=== PATIENT | male | born 1945 | race Hispanic/Latino ===

== ENCOUNTER 2021-03-28 00:53 | Inpatient (IN) | payer OTHER ==
--- OUTSIDE RECORDS SUMMARY | 2021-03-28 00:59 | XMS REPORT | Continuity of Care Document ---
:1945 Author Organization [facility] t Address [address] [place] [address] [address] [place] [address] Care Team Providers Name Role Phone JAYRO Primary Care Physician Unavailable DOV Attending Clinician Unavailable Maggie Attending Clinician Unavailable Jamar TUCKER Attending Clinician JAMAR Attending Clinician Unavailable NICK HORAN Attending Clinician Unavailable Nancy HORN Attending Clinician Unavailable Lynda RUCKER Attending Clinician Nick Horan MD Attending Clinician 2, Lab Attending Clinician Unavailable Luis FOWLER Attending Clinician Unavailable DOV Attending Clinician Unavailable DOV Attending Clinician Unavailable Violet MEI Attending Clinician Unavailable ASHLEY JOVEL Attending Clinician Unavailable DARIUSZ Attending Clinician Unavailable KHALIDA Attending Clinician Unavailable KHALIDA Attending Clinician [phone] Mariah ANNA Attending Clinician Unavailable Mariah ANNA Attending Clinician [phone] JAYRO Attending Clinician Unavailable Maggie Admitting Clinician Unavailable JAYRO Admitting Clinician Unavailable Payers Payer Name Policy Type Policy Number Effective Date Expiration Date S jonah [employer]ETNA MEDICARE PPO [id number] 2016 00:00:00 [employer]ETNA MEDICARE ADV [id number] 2018 00:00:00 [employer] (MEDICARE [id number] 2021 REPLACEMENT PPO) 00:00:00 Problems Condition Condition Condition Status Onset Resolution Last Treating Co mments Source Name Details Category Date Date Treatment Clinician Date History of History of Disease Active 2020-02 U T total hip total hip 2-12 Heal th replacemen replacemen 00:00: t, right t, right 00 Primary Primary Disease Active 2020-02 [facility] localized localized 2-12 Heal th osteoarthr osteoarthr 00:00: itis of itis of 00 right hip right hip Coronary Coronary Disease Active 2019-02 Unive rs artery artery 1-14 ity of disease disease 00:00: [place] involving involving 00 Medi stefany [place] Branch coronary coronary artery of artery of [place] heart heart without without angina angina pectoris pectoris COVID-19 COVID-19 Disease Active 2019-02 Unive rs 1-14 ity of 00:00: [place] 00 Medical Branch Troponin I Troponin I Disease Active 2019-02 U nivers above above 1-14 [place] of [place] range 00 [place] 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-02 Unive 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 00:00: [place] systolic systolic 00 Medica l and and Branch diastolic diastolic congestive congestive heart heart failure failure Essential Essential Disease Active 2019-02 Uni vers hypertensi hypertensi 1-14 it y of on on 00:00: [place] 00 Medical Branch Other Other Disease Active 2019-02 Univers hyperlipid hyperlipid 1-14 it y of emia emia 00:00: [place] 00 Medical Branch Type 2 Type 2 Disease Active 2019-02 Univers diabetes diabetes 1-14 ity of mellitus mellitus 00:00: [place] without without 00 Medical complicati complicati Br anch on, with on, with long-term long-term current current use of use of insulin insulin Hypoxia Hypoxia Disease Active 2019-02 Univers 1-13 ity of 00:00: [place] 00 Medical Branch Lumbar Lumbar Disease Active [facility] stenosis stenosis 806 Health with with 00:00: neurogenic neurogenic 00 claudicati claudicati on on Arthritis Arthritis Disease Active UT of right of right 806 Health hip hip 00:00: 00 History of History of Disease Active U T hip hip 806 Health replacemen replacemen 00:00: t, total, t, total, 00 left left Nondisplac Nondisplac Disease Active U T ed ed 7-05 Health [facility] 00:00: teric teric 00 fracture fracture of left of left femur, femur, initial initial encounter encounter for closed for closed fracture fracture Hemangioma Hemangioma Disease Active U T 5-23 Health 00:00: 00 Right hip Right hip Disease Active 2016-02 UT pain pain 0-24 Health 00:00: 00 Left hip Left hip Disease Active 2017 UT pain pain 9-26 Health 00:00: 00 Trigger Trigger Disease Active 2015-02 UT middle middle 0-12 Health finger of finger of 00:00: left hand left hand 00 History of History of Problem Resolve Univers diabetes diabetes d ity of mellitus mellitus [place] Physici ans History of History of Problem Resolve Univers hypertensi hypertensi d it y of on on [place] [facility] History of History of Problem Resolve Univers renal renal d ity of calculi calculi [place] [facility] Trigger Trigger Problem Active Univers middle middle ity of finger of [place] left hand left hand Phys ici ans Acute hip Acute hip Problem Active Uni vers pain, left pain, left it y of [place] [facility]ici ans Right hip Right hip Problem Active Uni vers pain pain ity of [place] Physici ans Hemangioma Hemangioma Problem Active U nivers ity of [place] Physici ans Closed Closed Problem Active Univers nondisplac nondisplac it y of ed ed [facility] teric teric ans fracture fracture of left of left femur, femur, initial initial encounter encounter Closed Closed Problem Active Univers nondisplac nondisplac it y of ed ed [facility] ysici teric teric ans fracture fracture of left of left femur with femur with routine routine healing, healing, subsequent subsequent encounter encounter History of History of Problem Active U nivers hip hip ity of [place], total t, total Physic i ans Primary Primary Problem Active Univers osteoarthr osteoarthr it y of itis of itis of [place] right hip right hip Phys ici ans Spinal Spinal Problem Active Univers stenosis stenosis ity of of lumbar of [place] Physici with with ans neurogenic neurogenic claudicati claudicati on on Allergies, Adverse Reactions, Alerts Allergy Allergy Status Severity Reaction(s) Onset Inactive Treating Comm ents Source Name Type Date Date Clinician LIRAGLUT DRUG Active High Other-Cmnt Univ ers STERLING INGREDI - ity of 00:00: [place] 00 Medical Branch LIRAGLUT DRUG Active High Other-Cmnt Univ ers STERLING INGREDI 04-20 ity of 00:00: [place] 00 Medical Branch Liraglut Drug Active Other - See Patient Un scooby sterling Allergy comments 04-20 states ity of 00:00: that [place] 00 caused Medical Pancreati Branch tisOther reaction( s): Other (See Comments) Got pacreatit is from victoza, told not to take VICTOZA Allergy Active [place] [facility] e [facility] Family History Family Member Diagnosis Comments Start Date Stop Date Source Sibling Family history of Univers ity of [place] diabetes mellitus Physici ans Sibling Family history of Univers ity of [place] cardiac disorder Physicia ns Mother Family history of Univers ity of [place] diabetes mellitus Physici ans Father Family history of Univers ity of [place] diabetes mellitus Physici ans Father Family history of Univers ity of [place] cardiac disorder Physicia ns Social History Social Habit Start Date Stop Date Quantity Comments Source Health-related 2019-06-05 [facility] Behavior 00:00:00 Exposure to Not sure [place] [facility] SARS-CoV-2 (event) Alcohol intake [facility] Sex Assigned At Male [facility] Tobacco use and 2020-07-30 2020-07-30 Smokeless tobacco [facility] exposure 00:00:00 00:00:00 non-user Smoking Status Start Date Stop Date Source Never Smoker [facility] Unknown if ever smoked [facility] Medications Ordered Filled Start Stop Current Ordering Indication Dosage Frequency Signature Comments Components Source Medication Medication Date Date Medication? Clinician (SIG) Name Name Novolog Novolog 2020-02 No Novolog Rangel garcia Flexpen Flexpen 2-22 Flexpen da U-100 U-100 00:00: U-100 Medical Insulin Insulin 00 Insulin Group aspart 100 aspart 100 aspart 100 unit/mL (3 unit/mL (3 unit/mL (3 mL) mL) mL) subcutaneou subcutaneou subcutaneo s 75-100 3 s 75-100 3 us 75-100 units, units, 3 units, 101-150-5 101-150-5 101-150-5 units , units , units , 151-200 7 151-200 7 151-200 7 units, units, units, 201-250 9 201-250 9 201-250 9 units, units, units, 251-300 11 251-300 11 251-300 11 units , 300 units , 300 units , or more ... or more ... 300 or more ... cholecalcif 2020-02 Yes Take by [place] emma 2-08 mouth. Health (Vitamin 10:57: D3) 200 34 Unit tablet split tablet omega-3 2020-02 Yes Take by [place] (Fish Oil) 2-08 mouth. Health 1000 MG 10:57: capsule 34 alpha 2020-02 Yes Take by UT tocopherol 2-08 mouth. Health (Vitamin E) 10:57: 100 units 34 capsule Zinc 10 MG 2020-02 Yes Take by UT lozenge 2-08 mouth. Health 10:57: 34 meloxicam 2020-02 Yes UT (Mobic) 15 2-08 Health MG tablet 10:57: 34 montelukast 2020-02 Yes 10mg Take 10 mg UT (Singulair) 2-08 by mouth. Constantino lt 10 MG 10:57: tablet 34 FREESTYLE 2020-02 Yes [id number] USE U nivers JENISE 14 0-04 DIRECTED ity of DAY SENSOR 00:00: EVERY 14 [place] 00 [place] Branch cholecalcif Yes Take by UT emma 6 mouth. Health (Vitamin 16:23: D3) 200 14 Unit tablet split tablet omega-3 Yes Take by UT (Fish Oil) 07-30 mouth. Health 1000 MG 16:23: capsule 14 alpha Yes Take by UT tocopherol 07-30 mouth. Health (Vitamin E) 16:23: 100 units 14 capsule Zinc 10 MG Yes Take by UT lozenge 07-30 mouth. Health 16:23: 14 meloxicam Yes UT (Mobic) 15 6 Health MG tablet 16:23: 14 montelukast Yes 10mg Take 10 mg UT (Singulair) 07-30 by mouth. Hea lth 10 MG 16:23: tablet 14 No known No No known UT medications 07-30 medication He alth 11:23: s 14 icosapent Yes [id number] 2g Take 2 Un scooby ethyL 6-03 capsules ity of (VASCEPA) 1 00:00: by mouth 2 [facility] 00 (two) Medical capsule times Branch daily. metFORMIN Yes 850mg Take 1 Unive rs 850 mg - tablet by ity of tablet 00:00: mouth 2 [place] 00 (two) Medical times Branch daily. insulin Yes [id number] 34U inject 34 Univers degludec 5-18 Units ity of (TRESIBA 00:00: under the [facility] s FLEXTOUCH 00 skin every Medi stefany U-100) 100 morning. Branc h unit/mL (3 mL) InPn montelukast Yes 10mg Take 10 mg UT (Singulair) 5-02 by mouth. Hea lth 10 MG 13:58: tablet 20 montelukast Yes 10mg Take 10 mg UT (Singulair) 5-02 by mouth. Hea lth 10 MG 13:58: tablet 20 meloxicam Yes UT (Mobic) 15 5-02 Health MG tablet 13:58: 19 meloxicam 0 Yes UT (Mobic) 15 5-02 Health MG tablet 13:58: 19 omega-3 2021-0 Yes Take by UT (Fish Oil) 5-02 mouth. Health 1000 MG 13:58: capsule 18 alpha 2020-0 Yes Take by UT tocopherol 5-02 mouth. Health (Vitamin E) 13:58: 100 units 18 capsule Zinc 10 MG 2020-0 Yes Take by UT lozenge 5-02 mouth. Health 13:58: 18 omega-3 2020-0 Yes Take by UT (Fish Oil) 5-02 mouth. Health 1000 MG 13:58: capsule 18 alpha 2020-0 Yes Take by UT tocopherol 5-02 mouth. Health (Vitamin E) 13:58: 100 units 18 capsule Zinc 10 MG 2020-0 Yes Take by UT lozenge 5-02 mouth. Health 13:58: 18 cholecalcif 2020-0 Yes Take by UT emma 5-02 mouth. Health (Vitamin 13:58: D3) 200 17 Unit tablet split tablet cholecalcif 0 Yes Take by UT emma 5-02 mouth. Health (Vitamin 13:58: D3) 200 17 Unit tablet split tablet Continuous 2020-0 Yes 1 EACH UT Blood Gluc 3-25 DAILY. Health Bridge Mechanic 00:00: E11.65 (FreeStyle 00 Jenise 14 Day [place]) device Continuous 2020-0 Yes 1 EACH UT Blood Gluc 3-25 DAILY. Health Bridge Mechanic 00:00: E11.65 (FreeStyle 00 Ejnise 14 Day [place]) device Continuous 2020-0 Yes 1 EACH UT Blood Gluc 3-25 DAILY. Health Bridge Mechanic 00:00: E11.65 (FreeStyle 00 Jenise 14 Day [place]) device Continuous 2020-0 Yes 1 EACH UT Blood Gluc 3-25 DAILY. Health Bridge Mechanic 00:00: E11.65 (FreeStyle 00 Jenise 14 Day [place]) device FREESTYLE 2020-0 Yes [id number] 1 EACH U nivers JENISE 14 3-25 DAILY. ity of DAY READER 00:00: E11.65 [place] [address] Medical Branch Continuous 2020-0 Yes 1{kit} 1 kit by U T Blood Gluc 3-19 Other Health Sensor 00:00: route. (FreeStyle 00 Jenise 14 Day Sensor) misc Continuous 2020-0 Yes 1{kit} 1 kit by U T Blood Gluc 3-19 Other Health Sensor 00:00: route. (FreeStyle 00 Jenise 14 Day Sensor) misc Continuous 2021-0 Yes 1{kit} 1 kit by U T Blood Gluc 3-19 Other Health Sensor 00:00: route. (FreeStyle 00 Jenise 14 Day Sensor) [facility] Continuous Yes 1{kit} 1 kit by U T Blood Gluc 3-19 Other Health Sensor 00:00: route. (FreeStyle 00 Jenise 14 Day Sensor) [facility] FREESTYLE 2021- No [id number] 1{kit} 1 Kit Univers JENISE 14 3-19 10-04 every 14 ity of DAY SENSOR 00:00: 00:00 (fourteen) [place] Kit 00 :00 days. Medical E11.65 Branch ZINC Yes Take by Univers ACETATE 3-17 mouth ity of ORAL 14:02: daily. [address] vitamin E Yes Take by Univ ers acetate 3-17 mouth ity of (VITAMIN E 14:02: daily. [address] cholecalcif Yes Take by Un scooby emma, 3-17 mouth ity of vitamin D3, 14:02: daily. [facility] s (VITAMIN D3 50 Medical ORAL) Branch montelukast Yes 10mg Take 10 mg Univers 10 mg 3-17 by mouth. ity of tablet 10:53: [address] Branch atorvastati Yes TAKE 1 Univ ers n 20 mg 1-29 TABLET BY ity of tablet 00:00: MOUTH [place] [address] EVERY DAY Medical IN THE Branch EVENING WITH DINNER Icosapent Yes TAKE 2 UT Ethyl 1-24 CAPSULES Health (Vascepa) 1 00:00: BY MOUTH g capsule 00 TWICE A DAY Icosapent Yes TAKE 2 UT Ethyl 1-24 CAPSULES Health (Vascepa) 1 00:00: BY MOUTH g capsule 00 TWICE A DAY Icosapent Yes TAKE 2 UT Ethyl 1-24 CAPSULES Health (Vascepa) 1 00:00: BY MOUTH g capsule 00 TWICE A DAY Icosapent 0 Yes TAKE 2 UT Ethyl 1-24 CAPSULES Health (Vascepa) 1 00:00: BY MOUTH g capsule 00 TWICE A DAY hydroCHLORO Yes 25mg Take 25 mg Univers thiazide 25 1-12 by mouth ity of mg tablet 00:00: every [place] 00 morning. Medical Branch budesonide- 2019-02 Yes INHALE 1 UT formoterol 1-04 PUFF BY Health (Symbicort) 00:00: MOUTH 160-4.5 00 TWICE A MCG/ACT DAY inhaler budesonide- 2019-02 Yes INHALE 1 UT formoterol 1-04 PUFF BY Health (Symbicort) 00:00: MOUTH 160-4.5 00 TWICE A MCG/ACT DAY inhaler budesonide- 2019-02 Yes INHALE 1 UT formoterol 1-04 PUFF BY Health (Symbicort) 00:00: MOUTH 160-4.5 00 TWICE A MCG/ACT DAY inhaler budesonide- 2019-02 Yes INHALE 1 UT formoterol 1-04 PUFF BY Health (Symbicort) 00:00: MOUTH 160-4.5 00 TWICE A MCG/ACT DAY inhaler SYMBICORT 2019-02 Yes INHALE 1 Univ ers 160-4.5 1-04 PUFF BY ity of mcg/actuati 00:00: MOUTH [place] on inhaler 00 TWICE A Medica l DAY Branch insulin Yes [id number] 5U inject Uni vers aspart 9-16 5-12 Units ity of U-100 00:00: under the [place] (NOVOLOG 00 skin 3 Medical FLEXPEN (three) Branch U-100 times INSULIN) daily 100 unit/mL before (3 mL) meals. injection E11.65 valsartan Yes 320mg Take 320 Uni vers 320 mg 8-21 mg by ity of tablet 00:00: mouth [place] 00 daily. Medical Branch metoprolol Yes Univers succinate 5-02 ity of XL 25 mg 24 00:00: [place] hr tablet 00 Medical Branch metFORMIN Yes TAKE 1 UT (Glucophage 3-19 TABLET BY [facility] ) 850 MG 00:00: MOUTH tablet 00 TWICE A DAY metFORMIN Yes TAKE 1 UT (Glucophage 3-19 TABLET BY [facility] ) 850 MG 00:00: MOUTH tablet 00 TWICE A DAY metFORMIN Yes TAKE 1 UT (Glucophage 3-19 TABLET BY [facility] ) 850 MG 00:00: MOUTH tablet 00 TWICE A DAY metFORMIN Yes TAKE 1 UT (Glucophage 3-19 TABLET BY [facility] ) 850 MG 00:00: MOUTH tablet 00 TWICE A DAY aspirin 81 2018-0 Yes 81mg Take 81 mg U nivers mg EC 3-19 by mouth ity of tablet 00:00: daily. [address] isosorbide 2019-0 Yes 30mg Take 30 mg U T mononitrate 2-14 by mouth. a [facility] ER (Imdur) 00:00: 30 MG 24 hr 00 tablet isosorbide 2019-0 Yes 30mg Take 30 mg U T mononitrate 2-14 by mouth. [facility] ER (Imdur) 00:00: 30 MG 24 hr 00 tablet isosorbide 2019-0 Yes 30mg Take 30 mg U T mononitrate 2-14 by mouth. [facility] ER (Imdur) 00:00: 30 MG 24 hr 00 tablet isosorbide 2019-0 Yes 30mg Take 30 mg U T mononitrate 2-14 by mouth. [facility] ER (Imdur) 00:00: 30 MG 24 hr 00 tablet isosorbide 2019-0 Yes 30mg Take 30 mg U nivers mononitrate 2-14 by mouth ity of 30 mg 24 hr 00:00: [place]. [place] tablet [facility] valsartan valsartan No valsartan [place] 320 mg 320 mg 320 mg da tablet take tablet take tablet Medical one tablet one tablet take one Group a ay a ay tablet a ay Vascepa 1 Vascepa 1 No 2capsul BID Vascepa 1 [place] gram gram e(s) gram da capsule capsule capsule Medica l Take 2 Take 2 Take 2 Group capsules capsules capsules twice a day twice a day twice a by oral by oral day by route for route for oral route 90 days. 90 days. for 90 days. Adult Low Adult Low No Adult Low [place] Dose Dose Dose da Aspirin one Aspirin one Aspirin Medical day day one day Group atorvastati atorvastati No atorvastat [place] n 40 mg n 40 mg in 40 mg da tablet TAKE tablet TAKE tablet Medical 1 TABLET BY 1 TABLET BY TAKE 1 Group MOUTH ONCE MOUTH ONCE TABLET BY DAILY DAILY MOUTH ONCE DAILY clopidogrel clopidogrel No clopidogre [place] 75 mg 75 mg l 75 mg da tablet TAKE tablet TAKE tablet Medical 1 TABLET BY 1 TABLET BY TAKE 1 Group MOUTH ONCE MOUTH ONCE TABLET BY DAILY DAILY MOUTH ONCE DAILY doxycycline doxycycline No 1capsul BID doxycyclin [place] hyclate 100 hyclate 100 e(s) e hyclate da mg capsule mg capsule 100 mg M edical Take 1 Take 1 capsule Group capsule capsule Take 1 twice a day twice a day capsule by oral by oral twice a route for 7 route for 7 day by days. days. oral route for 7 days. FeroSul 325 FeroSul 325 No FeroSul [place] mg (65 mg mg (65 mg 325 mg (65 da iron) iron) mg iron) Medical tablet one tablet one tablet one Group tablet a tablet a tablet a day day day Lisinopril Lisinopril Yes Uni vers TABS TABS ity of [place] Physici ans HumaLOG HumaLOG Yes Univers SOLN SOLN ity of [place] Physici ans Metoprolol Metoprolol Yes Uni vers Tartrate Tartrate ity of TABS TABS [place] Physici ans Singulair Singulair Yes Unive rs TABS TABS ity of [place] Physici ans Aspirin Aspirin Yes Univers TABS TABS ity of [place] Physici ans Mobic TABS Mobic TABS Yes Uni vers ity of [place] Physici ans hydrochloro hydrochloro No hydrochlor [place] thiazide 25 thiazide 25 othiazide da mg tablet mg tablet 25 mg Medi stefany one tablet one tablet tablet one Group a day a day tablet a day isosorbide isosorbide No isosorbide [place] mononitrate mononitrate mononitrat da ER 30 mg ER 30 mg e ER 30 mg M edical tablet,exte tablet,exte tablet,ext Group nded nded ended release 24 release 24 release 24 hr one hr one hr one tablet a tablet a tablet a day day day metformin metformin No metformin [place] 850 mg 850 mg 850 mg da tablet TAKE tablet TAKE tablet Medical 1 TABLET BY 1 TABLET BY TAKE 1 Group MOUTH TWICE MOUTH TWICE TABLET BY DAILY DAILY MOUTH TWICE DAILY metoprolol metoprolol No metoprolol [place] succinate succinate succinate da ER 25 mg ER 25 mg ER 25 mg Med ical tablet,exte tablet,exte tablet,ext Group nded nded ended release 24 release 24 release 24 hr take one hr take one hr take tablet a tablet a one tablet day day a day montelukast montelukast No montelukas [place] 10 mg 10 mg t 10 mg da tablet one tablet one tablet one Medical a day a day a day Group nitroglycer nitroglycer No nitroglyce [place] in 0.4 mg in 0.4 mg rin 0.4 mg da sublingual sublingual sublingual Medical tablet prn tablet prn tablet prn Group ranolazine ranolazine No ranolazine [place] ER 500 mg ER 500 mg ER 500 mg da tablet,exte tablet,exte tablet,ext Medical nded nded ended Group release,12 release,12 release,12 hr take 1 hr take 1 hr take 1 tablet BID tablet BID tablet BID Tresiba Tresiba No Tresiba [place] FlexTouch FlexTouch FlexTouch da U-100 U-100 U-100 Medical insulin 100 insulin 100 insulin Group unit/mL (3 unit/mL (3 100 mL) mL) unit/mL (3 subcutaneou subcutaneou mL) s pen s pen subcutaneo INJECT 40 INJECT 40 us pen UNITS UNITS INJECT 40 SUBCUTANEOU SUBCUTANEOU UNITS SLY ONCE SLY ONCE SUBCUTANEO DAILY DAILY USLY ONCE DAILY Immunizations Ordered Filled Immunization Date Status Comments [facility] e Immunization Name Name influenza, influenza, 2020-11-21 Completed [facility] injectable, injectable, 00:00:00 Group quadrivalent quadrivalent COVID-19, mRNA, COVID-19, mRNA, 2020-04-[address] [facility] LNP-S, PF, 30 LNP-S, PF, 30 00:00:00 Group mcg/0.3 mL dose mcg/0.3 mL dose (Pfizer-BioNTech) ([employer]) SARS-COV-2 COVID-19 2020-04-11 Completed Unive rsity of PFIZER VACCINE 00:00:00 [facility] COVID-19, mRNA, COVID-19, mRNA, 2020-03-17 Completed [facility] Medical LNP-S, PF, 30 LNP-S, PF, 30 00:00:00 Group mcg/0.3 mL dose mcg/0.3 mL dose (Pfizer-BioNTech) ([employer]) SARS-COV-2 COVID-19 2020-03-17 Completed Unive rsity of PFIZER VACCINE 00:00:00 [facility] Influenza High Dose 2019-11-08 Completed Unive rsity of Quad 00:00:00 [facility] Branch Pneumococcal 2013-04-21 Completed University o f Polysaccharide, 00:00:00 [facility] ical PPSV23 (PNEUMOVAX) Branch Influenza High Dose 2013-01-11 Completed Unive rsity of 00:00:00 [facility] Vital Signs Vital Name Observation Time Observation Value Comments Source BP Diastolic 2021-02-24 00:00:00 74 mm[Hg] [facility] Height 2021-02-24 00:00:00 68 [in_i] [facility] BMI (Body Mass 2021-02-24 00:00:00 32.5 kg/m2 [facility] Medical Index) Group BP Systolic 2021-02-24 00:00:00 140 mm[Hg] [facility] Body Weight 2021-02-24 00:00:00 3417 [oz_av] [facility] BP Diastolic 2021-02-11 00:00:00 68 mm[Hg] [facility] Height 2021-02-11 00:00:00 68 [in_i] [facility] BMI (Body Mass 2021-02-11 00:00:00 32.2 kg/m2 [facility] operator Medical Index) Group BP Systolic 2021-02-11 00:00:00 137 mm[Hg] [facility] Body Weight 2021-02-11 00:00:00 3393 [oz_av] [facility] Body height 2021-01-28 16:57:00 [facility] 2021-01-28 16:57:00 [facility]987 [facility] BMI 2021-01-28 16:57:00 31.17 kg[facility]m2 [facility] Procedures Procedure Date / Time Performing Clinician Source Performed [U] XR HIP RIGHT 2 OR 3 2020-04-28 00:00:00 [facility] VIEWS [id number] Physicians Infectious agent detection 2019-05-31 00:00:00 Nancy Yueqing [employer] by nucleic acid Cardiac Catheterization [facility] Cardiopulmonary Bypass [facility] Pac[facility] Total Replacement of [facility] Revision of Hip [facility] Repair of Hip [facility] History of Hip Surgery [facility] Left Physicians Plan of Care Planned Activity Planned Date Details Comments Source Future Scheduled 2021-03-24 BMP, serum or [facility] 00:00:00 plasma [code = Group BMP, serum or plasma] Encounters Start End Encounter Admission Attending Care Care Encounter Source Date/Time Date/Time Type Type Clinicians Facility Department ID 2021-01-28 Outpatient CRUZ-Q [facility] [id number] [place] 11:25:57 [facility] DANIEL 2021-01-26 Outpatient [facility] [id number] [place] 14:53:20 [facility] 2020-12-20 Emergency [facility] [id number] Univers 05:23:42 [facility] 2020-07-28 Outpatient [facility] [id number] [place] 10:49:34 [facility] 2020-07-06 Outpatient CRUZ-Q [facility] [id number] [place] 01:03:22 EDDA [facility] DANIEL 2020-06-30 Outpatient [facility] [id number] [place] 23:19:14 [facility] 2021-03-26 2021-03-26 Outpatient Zuniga_F [facility] [id number] [place] 03:30:00 03:30:00 203 [facility] 2021-03-20 2021-03-20 Outpatient Zuniga_F [facility] [id number] [place] 12:57:00 12:57:00 128 [facility] 2021-03-20 2021-03-20 Outpatient Zuniga_F [facility] [id number] [place] 12:57:00 12:57:00 202 [facility] 2021-02-24 2021-02-24 Outpatient Zuniga_F [facility] [id number] [place] 04:29:00 04:29:00 104 [facility] 2021-02-24 2021-02-24 Magdiel [facility] [place] - [id number] [place] 00:00:00 00:00:00 Ella Gimenez MD: [address] [place] [address] [address], [place] [address] , Ph. 2021-02-11 2021-02-11 Outpatient Zuniga_F [facility] [id number] [place] 03:10:00 03:10:00 [facility] 2021-02-11 2021-02-11 Magdiel [facility] [place] - [id number] [place] 00:00:00 00:00:00 Ella Gimenez MD: 600 [facility] [address], [place] [address] , Ph. 2021-02-06 2021-02-06 Outpatient Zuniga_F [facility] [id number] [place] 02:19:00 02:19:00 217 Medical [facility] 2021-02-06 2021-02-06 Outpatient Zuniga_F [facility] [id number] [place] 02:19:00 02:19:00 221 Medical [facility] 2021-01-28 2021-01-28 Office Cruz-Martha DAILEY [id number] [place] 10:45:00 11:26:06 Visit PHYSICIAN edda [id number] [facility] S [id number] ORTHOPEDI [phone] - NILE 1 2020-11-16 2020-11-16 [facility] 1.2.840.114 [id number] Univers 00:00:00 00:00:00 Cristiano Stallworthton [id number] i ty [facility] [id number] [place] Profess[place] [phone] [place] dical [place]al [address] [place] [address] 2020-11-11 2020-11-11 Outpatient Seda GUY [facility] [id number] Univers 15:00:00 15:00:00 CRISTIANO [id number] [facility] 2020-11-11 2020-11-11 Outpatient Seda GUY [facility] [id number] Univers 15:00:00 15:00:00 CRISTIANO [facility] 2020-11-07 2020-11-07 Outpatient R AUNG [facility] [id number] Univers 10:00:00 10:00:00 SHAHAB [id number] [facility] 2020-11-07 2020-11-07 Outpatient R AUNG [facility] [id number] Univers 10:00:00 10:00:00 SHAHAB [facility] 2020-08-19 2020-08-19 Outpatient R [facility] [id number] Univers 10:45:00 10:45:00 [id number] [facility] 2020-08-19 2020-08-19 Outpatient R KORY [facility] [id number] Univers 10:45:00 10:45:00 ELLISFEROZ [facility] 2020-07-30 2020-07-30 Office ASIM Howell 1.2.840.114 [id number] [place] 10:30:47 11:36:32 Visit Willard PHYSICIAN [id number] Health S [id number] ORTHOPEDI [phone] CS - NILE 1 2020-07-30 2020-07-30 Office ASIM Howell 1.2.840.114 [id number] 10:30:47 11:36:32 Visit Willard PHYSICIAN [id number] S [id number] ORTHOPEDI [id number] CS - NILE 1 2020-07-22 2020-07-22 Parmjit Guy [facility] [id number] 00:00:00 00:00:00 Cristiano Forman [id number] [place] [id number] Professio [phone] nal 220 Building 2020-07-22 2020-07-22 Dionna Horan [facility] 1.2.840.114 [id number] 00:00:00 00:00:00 [facility] [id number] Nick Forman [id number] Professio [phone] nal 044 Office Building One 2020-07-17 2020-07-17 Tactical Debriefer 2, Adc Lab [facility] 1.2.840.114 [id number] 09:10:48 09:25:48 Visit Keno [id number] [place] [id number] Professio [phone] [facility] 353 [facility] 2020-07-17 2020-07-17 Outpatient R [facility] [id number] -[id number] Univers 09:00:00 09:00:00 [id number] [facility] 2020-07-17 2020-07-17 Outpatient R [facility] [id number] Univers 09:00:00 09:00:00 [facility] 2020-07-08 2020-07-08 [facility] 1.2.840.114 [id number] 15:22:46 16:10:06 Visit Cristiano Forman [id number] [place] [id number] Profvalentineio [phone] [facility] 220 [facility] 2020-07-08 2020-07-08 Outpatient R JAMAR [facility] [id number] Univers 15:30:00 15:30:00 CRISTIANO [id number] [facility] 2020-07-08 2020-07-08 [facility] [id number] Univers 15:30:00 15:30:00 CRISTIANO [facility] 2020-07-02 2020-07-02 Office ASIM Howell 1.2.840.114 [id number] [place] 13:39:45 14:58:22 Visit Willard PHYSICIAN [id number] Health S [id number] ORTHOPEDI [id number] CS - NILE 1 2020-07-02 2020-07-02 Office ASIM Howell 1.2.840.114 [id number] 13:39:45 14:58:22 Visit Willard PHYSICIAN [id number] S [id number] ORTHOPEDI [id number] CS - NILE 1 2020-07-02 2020-07-02 Outpatient JANETH [facility] [id number] Univers 10:30:00 10:30:00 LEXA [id number] [facility] 2020-07-02 2020-07-02 Outpatient Seda FOWLER [facility] [id number] Univers 10:30:00 10:30:00 LEXA [facility] 2020-06-05 2020-06-05 Outpatient TYRONE [facility] [id number] Memoria 05:18:00 18:17:00 joshua [facility] 2020-05-19 2020-05-19 Outpatient TYRONE [facility] 111 [id number] MH 08:00:00 18:00:00 UINTPAPI, Ortho pe [facility] 2020-05-19 2020-05-19 EXT MHH OP Tyrone EXT MSRDP 1.2.840.1 [id number] [place] 00:00:00 00:00:00 edda, LOCATION [id number] [facility] [place] [id number] [phone] [id number] 2020-05-07 2020-05-07 Outpatient Seda HORAN [facility] [id number]-20 Univers 10:00:00 10:00:00 SHAHAB [id number] [facility] 2020-05-07 2020-05-07 Outpatient Seda HORAN [facility] [id number] Univers 10:00:00 10:00:00 SHAHAB [facility] 2020-04-30 2020-04-30 Appointmen TYRONE [facility] Orthopedics [id number] Univers 13:00:00 13:00:00 t; EDDA, - [facility] ALLIE SANCHEZ M.D. [facility] i, ans M.D. 2020-04-11 2020-04-11 Outpatient Seda MEI [facility] [id number] Univers 10:30:00 10:30:00 KATINA [id number] [facility] 2020-04-11 2020-04-11 [facility] [id number] Univers 10:30:00 10:30:00 KATINA [facility] 2020-04-08 2020-04-08 Outpatient Seda MEI [facility] [id number] Univers 13:50:00 13:50:00 KATINA [id number] ity [facility] 2020-04-08 2020-04-08 Outpatient R HAMIDA [facility] [id number] Univers 13:50:00 13:50:00 KATINA ity [facility] 2020-03-17 2020-03-17 Outpatient BECKA [facility] [id number] Univers 12:00:00 12:00:00 CHADD [id number] ity [facility] 2020-03-17 2020-03-17 Outpatient R BECKA [facility] [id number] Univers 12:00:00 12:00:00 CHADD [facility] 2020-03-04 2020-03-04 Outpatient R JAMAR [facility] [id number] Univers 10:00:00 10:00:00 [facility]STIANO [id number] [facility] 2020-03-04 2020-03-04 Outpatient R JAMAR [facility] [id number] Univers 10:00:00 10:00:00 CRISTIANO [facility] 2020-02-27 2020-02-27 Outpatient R [facility] [id number] Univers 09:45:00 09:45:00 [id number] [facility] 2020-02-27 2020-02-27 Outpatient R AUNG [facility] [id number] Univers 09:45:00 09:45:00 SHAHAB [facility] 2020-02-06 2020-02-06 Outpatient R JAMAR [facility] [id number] Univers 09:30:00 09:30:00 [facility]RISTIANO [id number] [facility] 2020-02-06 2020-02-06 Outpatient R JAMAR [facility] [id number] Univers 09:30:00 09:30:00 CRISTIANO [facility] 2020-02-05 2020-02-05 Outpatient R AUNG [facility] [id number] Univers 10:00:00 10:00:00 SHAHAB [id number] ity [facility] 2020-02-05 2020-02-05 Outpatient R AUNG [facility] [id number] Univers 10:00:00 10:00:00 SHAHAB ity [facility] 2020-01-23 2020-01-23 Appointmen TYRONE [facility] [id number] Univers 13:30:00 13:30:00 t; cliff DEL CASTILLO M.D. [place], Physic i DAVID, ans M.D. 2020-01-16 2020-01-16 Outpatient R AUNG, [facility] [id number] Univers 09:00:00 09:00:00 SHAHAB [id number] ity [facility] 2020-01-16 2020-01-16 Outpatient R VESKOFFI, [facility] [id number] Univers 09:00:00 09:00:00 SHAHAB ity [facility] 2019-12-28 2019-12-28 Outpatient R [facility] [id number] Univers 17:00:00 17:00:00 ity [facility] 2019-12-28 2019-12-28 Outpatient R [facility] [id number] Univers 17:00:00 17:00:00 ity [facility] 2019-11-07 2019-11-07 Outpatient R GUY, [facility] [id number] Univers 11:00:00 11:00:00 CRISTIANO [id number] ity [facility] 2019-11-07 2019-11-07 Outpatient R GUY, [facility] [id number] Univers 11:00:00 11:00:00 CRISTIANO ity [facility] 2019-09-27 2019-09-27 [id number] Univers 10:00:00 10:00:00 t; KRISTI ARZOLA M.D. [facility] Clementina garcia 2019-07-03 2019-07-03 Outpatient R GUY, [facility] [id number] Univers 11:30:00 11:30:00 CRISTIANO [id number] ity [facility] 2019-07-03 2019-07-03 Outpatient R GUY, [facility] [id number] Univers 11:30:00 11:30:00 CRISTIANO ity [facility] 2019-06-26 2019-06-26 Outpatient R GUY, [facility] [id number] Univers 16:00:00 16:00:00 CRISTIANO [facility] 2019-06-05 2019-06-05 Outpatient KHALIDA, [facility] [id number] Access 11:00:00 11:00:00 [facility] 2019-06-05 2019-06-05 Outpatient KHALIDA, [facility] [id number] Access 11:00:00 11:00:00 [facility] [id number] [facility] [id number] 2019-05-31 2019-05-31 Outpatient WILFRIDO, [facility] [id number] Access 00:00:00 00:00:00 ARMANDO Kimberly 2019-05-31 2019-05-31 Outpatient WILFRIDO, [facility] [id number] Access 00:00:00 00:00:00 ARMANDO [id number] [facility] [id number] on license of [facility] [id number] 2019-04-03 2019-04-03 [facility] Orthopedics [id number] Univers 11:30:00 11:30:00 t; KRISTI ARZOLA M.D. [facility] Clementina Physici ans 2019-03-26 2019-03-26 [facility] [id number] Univers 10:30:00 10:30:00 t; KRISTI ARZOLA M.D. ity [place], [place] Clementina Physici ans 2019-01-09 2019-01-09 [facility] Orthopedics [id number] Univers 11:15:00 11:15:00 t; KRISTI ARZOLA M.D. [facility] Clementina Physici ans 2018-03-30 2018-03-30 [facility] [id number] Univers 10:15:00 10:15:00 t; KRISTI [facility]. [facility] Orthopedics [facility] Clementina Physici ans 2018-01-09 2018-01-09 [facility] [id number] Univers 10:45:00 10:45:00 t; KRISTI ARZOLA M.D. [facility] 2017-12-29 2017-12-29 [facility], [facility] UTP [id number] Univers 11:15:00 11:15:00 t; KRISTI ARZOLA M.D. [facility] 2017-11-16 2017-11-16 [facility], [facility] UTP [id number] Univers 11:00:00 11:00:00 t; KRISTI ARZOLA M.D. [employer] itsascha [facility], Orthopedics [facility] Physici ans 2017-10-12 2017-10-12 [facility], [facility] UTP [id number] Univers 11:00:00 11:00:00 t; KRISTI ARZOLA M.D. ity [facility] Phys[facility] ans 2017-09-14 2017-09-14 [facility], [facility] UTP [id number] Univers 11:00:00 11:00:00 t; KRISTI ARZOLA M.D. ity [facility] Physici ans 2017-08-23 2017-08-23 [facility], [facility] UTP [id number] Univers 09:00:00 09:00:00 t; KRISTI ARZOLA M.D. ity [facility] [place] [facility].[place]uba Physici ans 2017-07-13 2017-07-13 [facility], [facility] UTP [id number] Univers 11:00:00 11:00:00 t; KRISTI ARZOLA M.D. ity [facility] [place] [facility].[place]uba Physici ans 2017-03-30 2017-03-30 Outpatient Vince DIAL, [facility] MED [id number] 18:02:00 18:02:00 [facility] 2017-02-28 2017-02-28 [facility], [facility] UTP [id number] Univers 11:00:00 11:00:00 t; KRISTI ARZOLA M.D. ity [facility] [place] [facility].Luba Physici ans 2017-01-19 2017-01-19 [facility], [facility] UTP [id number] Univers 11:00:00 11:00:00 t; KRISTI ARZOLA M.D. itsascha [facility]. Physici ans 2017-01-06 2017-01-06 [facility] DARIUSZ, [facility] UTP [id number] Univers 10:45:00 10:45:00 t; KRISTI ARZOLA M.D. cliff [facility] Physici ans 2016-12-14 2016-12-14 [facility], [facility] UTP [id number] Univers 10:45:00 10:45:00 t; KRISTI ARZOLA M.D. cliff [facility] Physici ans 2016-11-25 2016-11-25 [facility], [facility] UTP [id number] Univers 11:15:00 11:15:00 t; KRISTI ARZOLA M.D. cliff [facility]. Physici ans 2016-11-16 2016-11-16 [facility], [facility] UTP [id number] Univers 10:45:00 10:45:00 t; KRISTI ARZOLA M.D. lenasashca [facility] Physici ans 2016-05-27 2016-05-27 [facility], [facility] UTP [id number] Univers 10:45:00 10:45:00 t; KRISTI ARZOLA M.D. lenasascha [facility] Physici ans 2015-11-27 2015-11-27 [facility], [facility] UTP [id number] Univers 10:45:00 10:45:00 t; KRISTI ARZOLA M.D. cliff [facility] Physici ans Results Test Description Test Time Test Comments Results Result Sourc e Comments [U] XRAY HIPS 2020-04-30 [facility] BILATERAL MIN 2 13:08:00 acquired, not [place] VWS AND AP PELVIS reported on Physic ians [id number] this accession number. [U] XRAY HIPS 2019-09-27 [facility] BILATERAL MIN 2 09:56:00 acquired, not [place] VWS AND AP PELVIS reported on Physic ians [id number] this accession number. Panel Description: SARS-CoV-2, RICHARD 2019-06-02 09:48:00 Test Item Value Reference Range Interpretation Comme nts SARS-CoV-2, RICHARD (test Not Detected Not Detected Testin g was performed using the code = 64155-1) avril(R) ALFIE S-CoV-2 test.This test was developed a nd its performance characteristics determinedby [employer]. T his test has not been FDA cleared ora pproved. This test has been author ized by FDA under an Emergency UseAu thorization (EUA). This test is on ly authorized for the duration oftime the declaration that circumstances e xist justifying theauthorizatio n of the emergency use of in vitro diagnostic tests fordetection of SARS-CoV-2 virus and/or diagnosi s of COVID-19 infectionunder section 564(b)(1) of the Act, 21 U.S .C. 360bbb-3(b)(1), unlessthe autho rization is terminated or r evoked sooner.

Performed by:
[employer] ([facility])

[facility][U] XRAY SPINE LUMBOSACRAL MIN 4 VWS [id number] 11:15:00Images acquired, not reported on this accession number.[facility] [U] XRAY SACRUM AND COCCYX 2 VWS, MIN. [id number] 11:15:00Images acquired, not reported on this accession number.[facility] Comprehensive Metabolic [id number] 18:51:00 Test Item Value Reference Range Interpretation Comments Sodium (test code = 140 mmol/L 135-145 N NA) Potassium (test 3.8 mmol/L 3.5-5.1 N code = K) Chloride (test code 99 mmol/L 98-105 N = CL) Carbon Dioxide 26 mmol/L 22-29 N (test code = CO2) Glucose (test code 226 mg/dL 70-115 H = GLU) Blood Urea Nitrogen 18 mg/dL 8-23 N (test code = BUN) Creatinine (test 0.9 mg/dL 0.7-1.2 N code = CREAT) Calcium (test code 9.7 mg/dL 8.3-10.5 N = CA) Prot Total (test 7.3 g/dL 6.4-8.3 N code = TP) Albumin (test code 4.2 g/dL 3.5-5.2 N = ALB) A/G Ratio (test 1.4 Ratio code = AGRATIO) Globulin (test code 3.1 2.9-3.1 N = GLOB) Bili Total (test 0.4 mg/dL 0.1-0.9 N code = TBIL) Alk Phos (test code 92 U/L 40-129 N = APHOS) AST (test code = 53 U/L 1-40 H AST) ALT (test code = 57 U/L 1-41 H ALT) BUN/Creatinine 20.0 Ratio (test code = BCRATIO) Anion Gap (test 15 mmol/L 7-16 N code = AGAP) Estimated GFR (test >60 eGFR (es timated code = GFR) mL/min/1.73m2 Glomerular Ryan tration Rate) is an est imated value,calculate d from the patient's s ginny creatinine usin g the MDRD equation.I t is NOT the patient 's actual GFR. The eGFR provides a more clinicallyusefu l measure of kidn ey disease than se rum creatinine alone.This calculation anny es sex and race into account, if the informationis provided. If th e race is not provided , and the patient isAfrican-Ameri can, multiply by 1.2 12. If sex is not prov ided, and thepatient is female, multipl y by 0.742. Results for patients <18 ye ars ofage have not been validated by th e MDRD study and shoul d be interpretedwith caution.eGFR Re sult Interpretation: eGFR > or = 60 is in t he Normal RangeeGF R < 60 may mean kidney diseaseeGFR < 1 5 may mean kidney failureRange s recommended by the National Kidney Foundation,http ://nkd ep.nih.gov Lipid [id number] 18:51:00 Test Item Value Reference Range Interpretation Comments Cholesterol (test 210 mg/dL 0-200 H code = CHOL) Triglycerides (test 185 mg/dL 9-200 N code = TRIG) HDL (test code = 45 mg/dL 40-60 N HDL) Chol/HDL (test code 4.7 Ratio 0.0-5.0 N = CHOLPHDL) LDL, Calculated 128 mg/dL 0-130 N (NOTE)RISK O F HEART (test code = LDLC) DISEASEPu blished by Citizen Of [place] Heart AssociationAnal yte Optim al Boderline Increased RiskC HOL <200 200-239 >240TRI G <150 150-199 >200HDL Male: >60 <40HDL Female: >60 <50 LDL < 100 130-15 9 >160 LDL NEAR OPTIMAL IS 100- 129 VLDL (test code = 37 mg/dL 5-40 N VLDL) LDL/HDL (test code = 3 LDLPHDL) CBC with [id number] 18:23:00 Test Item Value Reference Range Interpretation Comments WBC (test code = WBC) 6.8 K/cumm 4.4-10.5 N RBC (test code = RBC) 5.18 M/cumm 4.10-5.70 N Hemoglobin (test code = HGB) 15.1 gm/dL 13.4-17.4 N Hematocrit (test code = HCT) 46.9 % 38.7-52.0 N MCV (test code = MCV) 90.5 fL 80-100 N MCH (test code = MCH) 29.1 pg 27.0-32.5 N MCHC (test code = MCHC) 32.2 g/dL 32.0-37.5 N RDW (test code = RDW) 13.6 % 11.5-14.5 N Platelet Count (test code = 258 K/cumm 140-440 N PLTCT) MPV (test code = MPV) 8.5 fL Diff Method (test code = DIFFM) Auto Neutrophil (test code = NEUT) 57.7 % 36-70 N Lymphocyte (test code = LYMPH) 29.1 % 12-44 N Monocyte (test code = MONO) 7.9 % 0-11 N Eosinophil (test code = EOS) 4.6 % 0-7 N Basophil (test code = BASO) 0.8 % 0-2 N Neutro Abs (test code = ANEUT) 3.9 K/cumm 1.6-7.4 N Lymph Abs (test code = ALYMPH) 2.0 K/cumm 0.5-4.6 N Calhoun Abs (test code = AMONO) 0.5 K/cumm 0.0-1.2 N Eos Abs (test code = AEOS) 0.31 K/cumm 0.00-0.74 N Korin Abs (test code = ABASO) 0.1 K/cumm 0.00-0.21 N
[2021-03-28] MEDS ORDERED: ONDANSETRON 4 MG/2 ML VIAL ONE (01:27)
[2021-03-28] MEDS ORDERED: FUROSEMIDE 40 MG/4 ML VIAL ONE ×2 (01:27→07:38)
[2021-03-28] MEDS ORDERED: MORPHINE 2 MG/ML SYR ONE (01:27)
[2021-03-28 01:39] LABS: Absolute Lymphocytes (CBC) 1.3 K/uL (0.7-4.9); Hematocrit 39.1 % (39.6-49.0); Lymphocytes % 10.6 % (15.3-44.8); MPV 8.5 fL (7.6-11.3); RBC Red Blood Cell Count 4.49 M/uL (4.33-5.43)
[2021-03-28 01:40] LABS: Protime INR 1.24
[2021-03-28] MEDS ORDERED: NITROGLYCERIN 1 GM PKT TD ONE (01:55)
[2021-03-28 02:02] LABS: Albumin 2.5 g/dL (3.4-5.0); Bilirubin Direct 1.1 mg/dL (0-0.2); Bilirubin Total 1.5 mg/dL (0.2-1.0); Protein, Total 7.6 g/dL (6.4-8.2)
[2021-03-28 02:04] LABS: Troponin High Sensitivity 207.8 pg/mL (<58.9)
[2021-03-28 02:07] LABS: SARS-COV-2 RT PCR NEGATIVE (NEGATIVE)
--- NOTE | 2021-03-28 02:39 | ER ---
Nurse's Notes [facility] Name: Stepan Pringle Age: 75 yrs Sex: Male : 1945 Arrival Date: 03/28/2021 Time: 01:03 Bed 2 Private MD: Diagnosis: Acute on chronic combined systolic (congestive) and diastolic (congestive) heart failure Presentation: 03/28 01:05 Chief complaint: EMS states: called out for SOB. pt had heart cath today and started as6 having chest pain and shortness of breath this evening. Coronavirus screen: At this time, the client does not indicate any symptoms associated with coronavirus-19. Ebola Screen: No symptoms or risks identified at this time. Initial Sepsis Screen: Does the patient meet any 2 criteria? No. Patient's initial sepsis screen is negative. Does the patient have a suspected source of infection? No. Patient's initial sepsis screen is negative. Risk Assessment: Do you want to hurt yourself or someone else? Patient reports no desire to harm self or others. Onset of symptoms was March 27, 2021. Care prior to arrival: Medication(s) given: ASA, 81 mg, x 4. 01:05 Method Of Arrival: EMS: [facility] as6 01:05 Acuity: DODIE 3 as6 Historical: - Allergies: 01:37 Victoza 2-Raffi; as6 - Home Meds: 01:37 aspirin 81 mg Oral tab 81 mg daily [Active]; atorvastatin 40 mg oral tab 1 tab once as6 daily [Active]; clopidogrel 75 mg oral tab 1 tab once daily [Active]; ferrous sulfate 325 mg (65 mg iron) Oral cpER 325 mg daily [Active]; hydrochlorothiazide 25 mg Oral tab 1 tab once daily [Active]; isosorbide dinitrate 30 mg Oral tab 1 tab daily [Active]; metformin 850 mg Oral tab 1 tab 2 times per day [Active]; montelukast 10 mg oral tab 1 tab once daily [Active]; Novolog U-100 Insulin aspart 100 unit/mL Sub-Q soln as needed [Active]; ranolazine 500 mg oral Tb12 1 tab 2 times per day [Active]; tresiba 40 units daily [Active]; vacespa 1 gram bid [Active]; valsartan 320 mg oral tab 1 tab once daily [Active]; - PMHx: 01:37 Diabetes - IDDM; Hypertension; Congestive heart failure; Peripheral vascular disease; as6 Hypercholesterolemia; - PSHx: 01:37 pacemaker; cardiac cath; l and r hip; as6 - Immunization history:: Client reports receiving the 2nd dose of the Covid vaccine, moderna. - Social history:: Smoking status: Patient denies any tobacco usage or history of. Screenin:46 Abuse screen: Denies threats or abuse. Denies injuries from another. Nutritional as6 screening: No deficits noted. Tuberculosis screening: No symptoms or risk factors identified. Fall Risk No fall in past 12 months (0 pts). No secondary diagnosis (0 pts). IV access (20 points). Ambulatory Aid- None/Bed Rest/Nurse Assist (0 pts). Gait- Weak (10 pts.). Mental Status- Oriented to own ability (0 pts). Total Canales Fall Scale indicates Low Risk Score (25-44 pts). Side Rails Up X 2 Frequent Obs/Assesments occuring Family Present and informed to notify staff if they need to leave bedside As available Patient and Family Educated on Fall Prevention Program and strategies. Assessment: 01:05 General: Appears uncomfortable, Behavior is cooperative, anxious. General: Reports as6 fatigue for. Pain: Complains of pain in chest. Neuro: Level of Consciousness is awake, alert, obeys commands, Oriented to person, place, time, situation. Cardiovascular: Reports chest pain, shortness of breath, Heart tones S1 S2 present Rhythm is sinus tachycardia Chest pain is located in left chest wall. Respiratory: Airway is patent Trachea midline Respiratory effort is even, labored, Respiratory pattern is regular, symmetrical, tachypnea Breath sounds are clear bilaterally. GI: Reports constipation. Derm: Skin is diaphoretic. 02:24 General: pt report of improved chest pain and shortness of breath . Respiratory: as6 Respiratory effort is even, unlabored, Respiratory pattern is regular, symmetrical. Derm: Wound noted dorsum of right foot. Derm: Skin is dry. Vital Signs: 01:05 BP 136 / 83; Pulse 120; Resp 24 S; Temp 98.7(O); Pulse Ox 94% on 4 lpm NC; Weight 94.35 as6 kg (R); Height 5 ft. 8 in. (172.72 cm) (R); Pain 5/10; 02:22 BP 126 / 55; Pulse 91; Resp 18 S; Pulse Ox 96% on 2 lpm NC; as6 01:05 Body Mass Index 31.63 (94.35 kg, 172.72 cm) as6 ED Course: 01:03 Patient arrived in ED. as6 01:03 Simone Ashford, RN is Primary Nurse. as6 01:03 Earnest Zacarias MD is Attending Physician. 7 01:18 Inserted saline lock: 22 gauge in left wrist, using aseptic technique. Blood collected. ds4 Missed attempt(s): 22 gauge in left forearm. Bleeding controlled, band aid applied, catheter tip intact. 01:23 COVID-19/FLU A+B/RSV (Document "Date of Onset" if Symptomatic) Sent. as6 01:23 Basic Metabolic Panel Sent. as6 01:23 CBC with Diff Sent. as6 01:23 LFT's Sent. as6 01:23 Magnesium Sent. as6 01:23 NT PRO-BNP Sent. as6 01:23 PT-INR Sent. as6 01:23 Troponin HS Sent. as6 01:29 XRAY Chest (1 view) In Process Unspecified. EDMS 01:37 Triage completed. as6 01:46 Arm band placed on. as6 01:47 Placed in gown. Bed in low position. Call light in reach. Side rails up X2. Adult w/ as6 patient. laboratory monitor on. Pulse ox on. NIBP on. Pillow given. 02:37 Uli Madden MD is Hospitalizing Provider. [facility] 05:19 No provider procedures requiring assistance completed. Patient admitted, IV remains in as6 place. Administered Medications: 01:30 Drug: Lasix (furosemide) 40 mg Route: IVP; Site: left forearm; as6 05:17 Follow up: Response: No adverse reaction as6 01:30 Drug: morphine 2 mg Route: IVP; Site: left forearm; as6 05:17 Follow up: Response: No adverse reaction; RASS: Alert and Calm (0) as6 01:30 Drug: Zofran (Ondansetron) 4 mg Route: IVP; Site: left forearm; as6 05:17 Follow up: Response: No adverse reaction as6 02:01 Drug: Nitro-Bid (nitroglycerin) Ointment 2 % 1 inches Route: Transdermal; Site: as6 anterior chest wall; 05:18 Follow up: Response: No adverse reaction as6 03:23 Drug: vancoMYCIN 1 grams Route: IVPB; Infused Over: 2 hrs; Site: left forearm; as6 05:18 Follow up: Response: No adverse reaction; IV Status: Completed infusion; IV Intake: as6 250ml Intake: 05:18 IV: 250ml; Total: 250ml. as6 Outcome: 02:38 Decision to Hospitalize by Provider. mh7 05:19 Admitted to ER Hold. Please see [facility] for further documentation. as6 05:19 Condition: stable 05:19 Instructed on the need for admit. 21:45 Patient left the ED. as6 Signatures: Dispatcher [employer] EDMS Wil Acuña 4 Earnest Zacarias MD MD mh7 Simone Ashford RN RN as6
--- NOTE | 2021-03-28 02:39 | EDPHYS ---
Physician Documentation [facility] Name: Stepan Pringle Age: 75 yrs Sex: Male : 1945 Arrival Date: 03/28/2021 Time: 01:03 Bed 2 Private MD: ED Physician Earnest Zacarias HPI: 03/28 01:32 This 75 yrs old Male presents to ER via Unassigned with complaints of mh7 Shortness of breath. Chest pain. 01:32 The patient has shortness of breath at rest, with light activity. Onset: The mh7 symptoms/episode began/occurred yesterday. Duration: The symptoms are intermittent, with no pattern. The patient's shortness of breath is aggravated by exertion, light activity, is alleviated by sitting up. Associated signs and symptoms: Pertinent positives: chest pain, non-productive cough, diaphoresis, Pertinent negatives: dizziness, fever, hemoptysis, loss of consciousness, nausea, numbness in extremities, visual changes, vomiting. Severity of symptoms: At their worst the symptoms were moderate today, in the emergency department the symptoms have improved mildly. Historical: - Allergies: 01:37 Victoza 2-Raffi; as6 - Home Meds: 01:37 aspirin 81 mg Oral tab 81 mg daily [Active]; atorvastatin 40 mg oral tab 1 tab once as6 daily [Active]; clopidogrel 75 mg oral tab 1 tab once daily [Active]; ferrous sulfate 325 mg (65 mg iron) Oral cpER 325 mg daily [Active]; hydrochlorothiazide 25 mg Oral tab 1 tab once daily [Active]; isosorbide dinitrate 30 mg Oral tab 1 tab daily [Active]; metformin 850 mg Oral tab 1 tab 2 times per day [Active]; montelukast 10 mg oral tab 1 tab once daily [Active]; Novolog U-100 Insulin aspart 100 unit/mL Sub-Q soln as needed [Active]; ranolazine 500 mg oral Tb12 1 tab 2 times per day [Active]; tresiba 40 units daily [Active]; vacespa 1 gram bid [Active]; valsartan 320 mg oral tab 1 tab once daily [Active]; - PMHx: 01:37 Diabetes - IDDM; Hypertension; Congestive heart failure; Peripheral vascular disease; as6 Hypercholesterolemia; - PSHx: 01:37 pacemaker; cardiac cath; l and r hip; as6 - Immunization history:: Client reports receiving the 2nd dose of the Covid vaccine, moderna. - Social history:: Smoking status: Patient denies any tobacco usage or history of. ROS: 01:32 Constitutional: Negative for fever, chills, and weight loss, Eyes: Negative for injury, mh7 pain, redness, and discharge, ENT: Negative for injury, pain, and discharge, Neck: Negative for injury, pain, and swelling, Abdomen/GI: Negative for abdominal pain, nausea, vomiting, diarrhea, and constipation, Back: Negative for injury and pain, : Negative for injury, bleeding, discharge, and swelling, MS/Extremity: Negative for injury and deformity, Skin: Negative for injury, rash, and discoloration, Neuro: Negative for headache, weakness, numbness, tingling, and seizure, Psych: Negative for depression, anxiety, suicide ideation, homicidal ideation, and hallucinations, Allergy/Immunology: Negative for hives, rash, and allergies, Endocrine: Negative for neck swelling, polydipsia, polyuria, polyphagia, and marked weight changes, Hematologic/Lymphatic: Negative for swollen nodes, abnormal bleeding, and unusual bruising. Exam: 01:32 Head/Face: Normocephalic, atraumatic. Eyes: Pupils equal round and reactive to light, mh7 extra-ocular motions intact. Lids and lashes normal. Conjunctiva and sclera are non-icteric and not injected. Cornea within normal limits. Periorbital areas with no swelling, redness, or edema. Neck: Trachea midline, no thyromegaly or masses palpated, and no cervical lymphadenopathy. Supple, full range of motion without nuchal rigidity, or vertebral point tenderness. No Meningismus. Chest/axilla: Normal chest wall appearance and motion. Nontender with no deformity. No lesions are appreciated. 01:32 Abdomen/GI: Soft, non-tender, with normal bowel sounds. No distension or tympany. No guarding or rebound. No evidence of tenderness throughout. Back: No spinal tenderness. No costovertebral tenderness. Full range of motion. Skin: Warm, dry with normal turgor. Normal color with no rashes, no lesions, and no evidence of cellulitis. MS/ Extremity: Pulses equal, no cyanosis. Neurovascular intact. Full, normal range of motion. Neuro: Awake and alert, GCS 15, oriented to person, place, time, and situation. Cranial nerves II-XII grossly intact. Motor strength 5/5 in all extremities. Sensory grossly intact. Cerebellar exam normal. Normal gait. Psych: Awake, alert, with orientation to person, place and time. Behavior, mood, and affect are within normal limits. 01:32 Constitutional: The patient appears alert, awake, diaphoretic, obviously ill. 01:32 Cardiovascular: Rate: tachycardic, Rhythm: regular, Pulses: no pulse deficits are appreciated, Heart sounds: normal, normal S1and S2, Edema: pedal edema, that is moderate, JVD: is not appreciated. 01:32 Respiratory: mild respiratory distress is noted, Respirations: tachypnea, that is mild, Breath sounds: rales, that are moderate, are scattered, rhonchi, that are mild, are scattered. Vital Signs: 01:05 BP 136 / 83; Pulse 120; Resp 24 S; Temp 98.7(O); Pulse Ox 94% on 4 lpm NC; Weight 94.35 as6 kg (R); Height 5 ft. 8 in. (172.72 cm) (R); Pain 5/10; 02:22 BP 126 / 55; Pulse 91; Resp 18 S; Pulse Ox 96% on 2 lpm NC; as6 01:05 Body Mass Index 31.63 (94.35 kg, 172.72 cm) as6 MDM: 02:36 Differential diagnosis: Anemia Anxiety Reaction asthma, Bronchitis CHF exacerbation, mh7 Chronic Obstructive Pulmonary Disease Myocardial Infarction pneumonia, Pneumothorax Psychogenic pulmonary edema. Data reviewed: vital signs, nurses notes, EMS record, lab test result(s), cardiac enzymes, CBC, electrolytes. Data interpreted: Pulse oximetry: on 2L(s) per nasal canula, is 96 %. Interpretation: acceptable. Counseling: I had a detailed discussion with the patient and/or guardian regarding: the historical points, exam findings, and any diagnostic results supporting the discharge/admit diagnosis, the presence of at least one elevated blood pressure reading (>120/80) during this emergency department visit, lab results, radiology results, the need for further work-up and treatment in the hospital. Response to treatment: the patient's symptoms have markedly improved after treatment. 02:38 Patient medically screened. [facility] 03/28 01:04 Order name: Basic Metabolic Panel; Complete Time: 20:51 7 03/28 01:04 Order name: CBC with Diff; Complete Time: 01:48 7 03/28 01:04 Order name: LFT's; Complete Time: 20:51 7 03/28 01:04 Order name: Magnesium; Complete Time: 20:51 7 03/28 01:04 Order name: NT PRO-BNP; Complete Time: 20:51 7 03/28 01:04 Order name: PT-INR; Complete Time: 01:48 7 03/28 01:04 Order name: Troponin HS; Complete Time: 20:51 7 03/28 01:06 Order name: COVID-19/FLU A+B/RSV (Document "Date of Onset" if Symptomatic); Complete [facility] Time: 02:33 02 06:04 Order name: Troponin High Sensitivity; Complete Time: 20:51 EDMS 03/28 07:18 Order name: Urine Dipstick-Ancillary; Complete Time: 20:51 EDMS 03/28 08:54 Order name: Basic Metabolic Panel; Complete Time: 20:51 EDMS 03/28 09:02 Order name: D-Dimer; Complete Time: 20:51 EDMS 03/28 12:05 Order name: Troponin High Sensitivity; Complete Time: 20:51 EDMS 03/28 20:28 Order name: Glucose, Ancillary Testing; Complete Time: 20:51 EDMS 03/28 01:04 Order name: XRAY Chest (1 view); Complete Time: 20:51 7 03/28 01:04 Order name: EKG; Complete Time: 01:04 7 03/28 01:04 Order name: Cardiac monitoring; Complete Time: 01:18 7 03/28 01:04 Order name: EKG - Nurse/Tech; Complete Time: 01:18 7 03/28 01:04 Order name: IV Saline Lock; Complete Time: 01:18 7 03/28 01:04 Order name: Labs collected and sent; Complete Time: 01:18 7 03/28 03:07 Order name: Foot Right 3 View XRAY la1 03/28 09:47 Order name: US; Complete Time: 20:51 EDMS 03/28 10:14 Order name: RAD; Complete Time: 20:51 EDMS 03/28 11:09 Order name: US; Complete Time: 20:51 EDMS 03/28 13:21 Order name: CT; Complete Time: 20:51 EDMS 03/28 01:04 Order name: O2 Per Protocol; Complete Time: :18 mh7 03/28 01:04 Order name: O2 Sat Monitoring; Complete Time: :18 mh7 Administered Medications: 01:30 Drug: Lasix (furosemide) 40 mg Route: IVP; Site: left forearm; as6 05:17 Follow up: Response: No adverse reaction as6 01:30 Drug: morphine 2 mg Route: IVP; Site: left forearm; as6 05:17 Follow up: Response: No adverse reaction; RASS: Alert and Calm (0) as6 01:30 Drug: Zofran (Ondansetron) 4 mg Route: IVP; Site: left forearm; as6 05:17 Follow up: Response: No adverse reaction as6 02:01 Drug: Nitro-Bid (nitroglycerin) Ointment 2 % 1 inches Route: Transdermal; Site: as6 anterior chest wall; 05:18 Follow up: Response: No adverse reaction as6 03:23 Drug: vancoMYCIN 1 grams Route: IVPB; Infused Over: 2 hrs; Site: left forearm; as6 05:18 Follow up: Response: No adverse reaction; IV Status: Completed infusion; IV Intake: as6 250ml Disposition Summary: 03/28/21 02:38 Hospitalization Ordered Hospitalization Status: Inpatient Admission [facility] Provider: Uli Madden Condition: Stable [facility] Problem: an acute exacerbation [facility] Symptoms: have improved [facility] Bed/Room Type: Standard [facility] Location: Telemetry/MedSurg (Inpatient)(03/28/21 21:09) Room Assignment: [facility](03/28/21 21:09) Diagnosis - Acute on chronic combined systolic (congestive) and diastolic (congestive) heart [facility] failure Forms: - Medication Reconciliation Form [facility] - SBAR form [facility] Signatures: Dispatcher [employer] EDLonny Granados FNP-C TIME STUDY ENGINEER-Cla1 Sarahi Navarro RN RN cg Holmes, Maurice, MD MD 7 Simone Ashford RN RN as6 Corrections: (The following items were deleted from the chart) 03:11 02:38 Telemetry/MedSurg (Inpatient) mh7 cg 03: 02:38 mh7 cg : 03:11 [facility] cg cg 03:11 [facility]- cg
[2021-03-28] MEDS ORDERED: VANCOMYCIN 1 GM/VIAL ONE ×2 (03:15→05:23)
[2021-03-28] MEDS ORDERED: NA CHLORIDE 0.9% 250 ML ONE (03:15)
--- NOTE | 2021-03-28 03:24 | P.HP ---
Certification for Inpatient Patient admitted to: Inpatient With expected LOS: >2 Midnights Patient will require the following post-hospital care: None Practitioner: I am a practitioner with admitting privileges, knowledge of patient current condition, hospital course, and medical plan of care. Services: Services provided to patient in accordance with Admission requirements found in Title 42 Section 412.3 of the Code of Federal Regulations <Lonny Pino - Last Filed: 03/28/21 03:18> Patient History Date of Service: 03/28/21 Reason for admission: CHF exacerbation History of Present Illness: 75-year-old male with history of CHF, diabetes mellitus type 2insulin- dependent, hypertension, hyperlipidemia, PVD presents to the emergency department for shortness of breath. Patient was found to be hypoxic on room air with saturations around 88% showed up tachypnea, dyspneic with crackles. Patient was given Nitropaste, Lasix in the emergency department with improvement in symptoms chest x-ray appears to demonstrate volume overload pattern labs were significant for white blood cell count 12.2 hemoglobin 12.7 hematocrit 39.1 sodium 134 carbon oxide 19 BUN 35 creatinine 1.51 GFR 45 troponin 207.8, BNP 6890 T bili 1.5 bili 1.1 AST 113 ALT 83 alk phos 377. Patient also noted to have diabetic ulceration to the right foot. Patient reports that on Tuesday morning he went to [facility] and had a balloon angioplasty of the arteries of his right lower extremity in order to reestablish blood flow for wound healing purposes. Patient also reports that he had a heart catheterization in October of last year, he did not require any stenting at that time. ED provider wishes to admit for further evaluation and management of CHF exacerbation, diabetic ulceration. - Past Medical/Surgical History Diabetic: Yes -: CHF -: Diabetes type 2insulin-dependent -: Hypertension -: Hyperlipidemia -: PVD -: cabg -: bilateral cataract sx -: left hip sx x3 Psychosocial/ Personal History: Patient lives at home with his . - Family History Family History: Reviewed- Non-Contributory - Social History Smoking Status: Never smoker Alcohol use: No CD- Drugs: No Caffeine use: Yes Place of Residence: Home <Lonny Pino - Last Filed: 03/28/21 03:18> Date of Service: 03/28/21 <Uli Madden - Last Filed: 03/28/21 15:07> Allergies boceprevir [From Victrelis] Allergy (Verified 04/11/16 08:55) Hives/Rash liraglutide [From Victoza] Allergy (Verified 04/11/16 04:16) Itching/Hives/Rash Home Medications: Aspirin [Aspirin EC 81 MG] 81 mg PO DAILY 04/11/16 Atorvastatin Calcium 40 mg PO DAILY 03/28/21 Clopidogrel Bisulfate [Clopidogrel] 75 mg PO DAILY 03/28/21 Ferrous Sulfate 325 mg PO DAILY 03/28/21 Insulin Aspart [Novolog Flexpen] 100 units SQ PRN 03/28/21 Insulin Degludec [Tresiba] 40 units SQ DAILY 03/28/21 Isosorbide Dinitrate 30 mg PO DAILY 03/28/21 Metformin HCl 850 mg PO BID 03/28/21 Montelukast [Singulair*] 10 mg PO DAILY 03/28/21 Ranolazine [Ranolazine ER] 500 mg PO BID 03/28/21 Valsartan 320 mg PO DAILY 03/28/21 hydroCHLOROthiazide [Hydrochlorothiazide] 25 mg PO DAILY 03/28/21 icosapent ethyL [Vascepa 1 gm Cap] 1 gm PO BID 03/28/21 Review of Systems 10-point ROS is otherwise unremarkable Respiratory: Cough, Shortness of Breath, SOB with Excertion, As per HPI Cardiovascular: Orthopnea, Paroxysmal Noc. Dyspnea <Lonny Pino - Last Filed: 03/28/21 03:18> Physical Examination - Physical Exam General: Alert, In no apparent distress, Oriented x3 HEENT: Atraumatic, PERRLA, Mucous membr. moist/pink, EOMI, Sclerae nonicteric Neck: Supple, 2+ carotid pulse no bruit, No LAD, Without JVD or thyroid abnormality Respiratory: Diminished, Crackles/rales Cardiovascular: No edema, Regular rate/rhythm, Normal S1 S2 Capillary refill: <2 Seconds Gastrointestinal: Normal bowel sounds, No tenderness Musculoskeletal: No tenderness Integumentary: No rashes, Diabetic ulcer (Dorsum of right foot) Neurological: Normal speech, Normal strength at 5/5 x4 extr, Normal tone, Normal affect - Studies Laboratory Data (last 24 hrs) 03/28/21 01:14: PT 14.3 H, INR 1.24 03/28/21 01:14: WBC 12.20 H, Hgb 12.7 L, Hct 39.1 L, Plt Count 340 03/28/21 01:14: Sodium 134 L, Potassium 4.0, BUN 35 H, Creatinine 1.51 H, Glucose 174 H, Total Bilirubin 1.5 H, AST 113 H, ALT 83 H, Alkaline Phosphatase 377 H <Lonny Pino - Last Filed: 03/28/21 03:18> - Studies Laboratory Data (last 24 hrs) 03/28/21 01:14: PT 14.3 H, INR 1.24 03/28/21 01:14: WBC 12.20 H, Hgb 12.7 L, Hct 39.1 L, Plt Count 340 03/28/21 01:14: Sodium 134 L, Potassium 4.0, BUN 35 H, Creatinine 1.51 H, Glucose 174 H, Magnesium 2.3, Total Bilirubin 1.5 H, AST 113 H, ALT 83 H, Alkaline Phosphatase 377 H <Uli Madden - Last Filed: 03/28/21 15:07> Assessment and Plan - Plan Assessment: Acute hypoxic respiratory failure secondary to CHF exacerbationunknown EF 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 Lasix 40 g IV twice daily. Cardiology consult in place. Patient reports he had a heart catheterization and October of last year that did not require stents unsure when his last echocardiogram was no echo available for review patient unsure of his EF. Cardiology consulted for additional assistance. Unable to obtain echocardiogram until Tuesday. Diabetic ulceration dorsum of right foot: General surgery, wound healing consulted will continue with vancomycin at this time, x-ray pending to rule out osteomyelitis. Diabetes most type IIinsulin-dependent: Patient takes Tresiba 40 units daily in addition to Novolin sliding scale. Continue long-acting insulin with mildly reduced dose in addition to sliding scale. CAD status post CABG with pacemaker/defibrillator: Stable, monitor on telemetry. Renal insufficiency: Patient reports after battling with Covid his renal function got worse and it has improved some although he is aware that it is "not great". Unsure of patient's current baseline renal function will continue to trend, consult nephrology for any worsening. Hypertension: Home medications continued Hyperlipidemia: Home medications continued PVD status post balloon angioplasty arteries in the right leg: Stable, good skin color and perfusion to the right lower extremity noted. Abnormal LFTs/bili: We will obtain ultrasound liver. No abdominal pain, nausea or vomiting/abdominal tenderness at this time. DVT PPX: Heparin Code status: Full Discharge Plan: Home Plan to discharge in: 48 Hours - Advance Directives Does patient have a Living Will: No Does patient have a Durable POA for Healthcare: No - Code Status/Comfort Care Code Status Assessed: Yes (Full code) Critical Care: No Time Spent Managing Pts Care (In Minutes): 55 <Lonny Pino - Last Filed: 03/28/21 03:18> - Plan Physical exam GEN: Alert, oriented, NAD HEENT: Normal conjunctiva, sclera anicteric CV: Regular rate and rhythm, trace bilateral pedal edema Pulm: Mild labored respirations on 2 L nasal cannula, bilateral crackles at bases, L>R ABD: Soft, nontender, nondistended Integumentary: No rashes Neuro: Normal speech, normal affect Patient also reports chest pain last night during his episode of feeling more short of breath Chest x-ray bilateral opacities, possible CHF versus pneumonia Just underwent angioplasty yesterday of his right lower extremity check D-dimer, bilateral Dopplers Suspect D-dimer will be positive with recent procedure If either are positive , need to obtain CTA chest to rule out PE Ideally would want to minimize any further IV contrast Second troponin elevated, cardiology updated Start therapeutic Lovenox to cover for NSTEMI and possible PE Continue empiric antibiotics for possible pneumonia <Uli Madden - Last Filed: 03/28/21 15:07>
[2021-03-28] MEDS ORDERED: ONDANSETRON 4 MG/2 ML VIAL IV PRN (03:34)
[2021-03-28] MEDS ORDERED: ACETAMINOPHEN 500 MG TAB PO PRN (03:34)
[2021-03-28] MEDS ORDERED: VANCOMYCIN 1 GM in NA CHLORIDE 0.9% 250 ML IVPB SCH (03:34)
[2021-03-28] MEDS ORDERED: VANCOMYCIN 750 MG in NA CHLORIDE 0.9% 150 ML IVPB ONE (04:30)
[2021-03-28 05:03] VITALS: BMI 31.6
[2021-03-28] MEDS ORDERED: NA CHLORIDE 0.9% 100 ML IV ONE ×2 (05:23→15:41)
[2021-03-28] MEDS ORDERED: METOPROLOL XL 50 MG TAB PO ONE ×2 (05:27→08:25)
[2021-03-28] MEDS ORDERED: METOPROLOL XL 25 MG TAB PO SCH (06:00)
[2021-03-28 07:17] LABS: Urine Blood Negative (Negative); Urine Glucose Negative (Negative); Urine Protein Negative (Negative)
[2021-03-28] MEDS: INSULIN -REGULAR HUMAN 50 UNIT/0.5 ML ML SQ SCH ×4 (07:22→21:00)
[2021-03-28] MEDS ORDERED: ASPIRIN EC 81 MG TAB PO ONE (07:38)
[2021-03-28] MEDS ORDERED: HEPARIN 5000 UNIT/ML 1 ML VIAL ONE (07:38)
[2021-03-28] MEDS ORDERED: INSULIN GLARGINE 100 UNIT/ML SQ ONE (07:40)
[2021-03-28] MEDS ORDERED: CLOPIDOGREL 75 MG TABLET ONE (07:41)
[2021-03-28] MEDS: METOPROLOL XL 25 MG TAB PO SCH (08:00)
[2021-03-28] MEDS: ASPIRIN EC 81 MG TAB PO SCH (08:01)
[2021-03-28] MEDS: CLOPIDOGREL 75 MG TABLET PO SCH (08:03)
[2021-03-28] MEDS: INSULIN GLARGINE 100 UNIT/ML SQ SCH (08:03)
[2021-03-28] MEDS ORDERED: ENOXAPARIN 80 MG/0.8 ML SQ ONE (08:27)
[2021-03-28] MEDS ORDERED: ENOXAPARIN 30 MG/0.3 ML SQ ONE (08:49)
[2021-03-28 08:54] LABS: Potassium 4.3 mmol/L (3.5-5.1)
[2021-03-28] MEDS: ENOXAPARIN 100 MG/ML SYR SQ SCH ×2 (08:54→21:00)
[2021-03-28] MEDS: ISOSORBIDE MONO SR 30 MG TAB PO SCH (08:56)
[2021-03-28] MEDS ORDERED: FUROSEMIDE 40 MG/4 ML VIAL IV SCH (09:00)
[2021-03-28] MEDS ORDERED: ISOSORBIDE MONO SR 30 MG TAB PO SCH (09:00)
[2021-03-28] MEDS ORDERED: HEPARIN 5000 UNIT/ML 1 ML VIAL SQ SCH (09:00)
--- NOTE | 2021-03-28 09:43 | RAD REPORT ---
EXAM DESCRIPTION: US - Liver Only - 03/28/2021 4:00 am CLINICAL HISTORY: Elevated liver function test enzymes COMPARISON: None FINDINGS: The liver has a normal echotexture. . Hepatopetal flow. A lesion is not visualized. The spleen measures 9 centimeters. Small echogenic structures within spleen probably granuloma. 1.5 c entimeter echogenic structure within the spleen. IMPRESSION: Unremarkable liver ultrasound Splenic granulomata 1.5 centimeter echogenic structure spleen likely benign. A followup ultrasound in 3 months recommende d
--- NOTE | 2021-03-28 10:11 | RAD REPORT ---
EXAM DESCRIPTION: Naveen Single View03/28/2021 1:29 am CLINICAL HISTORY: Shortness of breath COMPARISON: 2017 FINDINGS: Mild right and moderate left pulmonary opacities Cardiomegaly. Pacemaker leads in place Postsurgical changes involve the chest IMPRESSION: Bilateral pulmonary opacities probably pulmonary edema. Pneumonia can also have this delon earance
--- NOTE | 2021-03-28 10:13 | RAD REPORT ---
EXAM DESCRIPTION: RAD - Foot Right 3 View - 03/28/2021 3:31 am CLINICAL HISTORY: Right foot pain FINDINGS: No fracture or dislocation is seen Vascular calcifications. Large calcaneal spurs. No bony destructive lesion visualized
--- NOTE | 2021-03-28 11:09 | RAD REPORT ---
EXAM DESCRIPTION: USExtrem Venous W Compress Bil03/28/2021 10:28 am CLINICAL HISTORY: Leg pain COMPARISON: none FINDINGS: The common femoral, superficial femoral, popliteal and posterior tibial veins bilaterally are compressible and demonstrate augmentation. Doppler demonstrates good flow. Grayscale, color and spectral analysis performed on all vessels IMPRESSION: No evidence of deep venous thrombosis involving either lower extremity.
--- NOTE | 2021-03-28 12:10 | CON ---
Date of Consultation: 03/28/2021 Reason For Consultation: Right foot wound. History Of Present Illness: Patient is a 75-year-old gentleman with multiple medical problems, prese nted to the emergency room with difficulty breathing and chest pain with exacerbation of the CHF and on evaluation, was found to have a wound on his right anterior foot and he yesterday had angioplasty done on his right leg for peripheral vascular disease in [place]. He was treated appropriately in [facility] emergency room and he is feeling better. I was asked to evaluate the wound, there is no purulent discharge. No erythema, no pain, no warmth. Review of Systems: Otherwise, unremarkable. Medical History: Significant for CHF, type 2 diabetes, hypertension, hyperlipidemia, peripheral vasc ular disease. Past Surgical History: CABG, cataract surgery, left hip surgery. Allergies: INCLUDE BOCEPREVIR AND LIRAGLUTIDE. Social History: The patient does not smoke or drink alcohol. Family History: Noncontributory. Physical Examination: Vital Signs: Stable. He is afebrile. General: He is awake, alert, and oriented x3. Head And Neck: Cranial 2-12 grossly within normal limits. Neck: No neck masses. No JVD. Throat clear. Neck supple. Chest: Clear. Heart: S1, S2. Abdomen: Soft. Extremities: Diminished dorsalis pedis and posterior tibial pulses. There is approximately 2.5 cm es garcia present in between the first and second toe of the right foot. There is erythema, however, ther e is no warmth associated with it. Erythema may be because the circulation has improved but there is no evidence of any infection. There is no evidence of any purulence as well. Laboratory Data: His white count is 12.2. slight left shift. His INR is 1.24. His chemistry review ed, troponin is elevated, getting a series of troponin level. He had a foot x-ray done, shows no ignacio dence of osteo or infection. Assessment: A 75-year-old gentleman with multiple medical problems, right foot wound. Recommendations: At this point, the patient would benefit from collagenase dressing and no need for any surgical intervention. He will follow up with his wound care doctor in [place] upon discharge, however, since he recently had a vascular procedure, I will await at least 2 weeks prior to consideri ng debridement of the eschar that is present there. Plan of care discussed with Dr. Madden. KEMAL/BARBARA Voice ID: [id number] Report ID: [id number]
--- NOTE | 2021-03-28 13:20 | RAD REPORT ---
EXAM DESCRIPTION: CT - Chest For Pe Angio - 03/28/2021 12:46 pm CLINICAL HISTORY: Chest pain TECHNIQUE: Dynamically enhanced axial 3 mm thick images of the chest were obtained during administra tion of <100> mL Isovue 370 IV contrast. Coronal and oblique reconstruction images were generated and reviewed. Exam utilizes a protocol for optimal evaluation of pulmonary arterial tree. Maximum intensity projections 3D imaging was utilized All CT scans are performed using dose optimization technique as appropriate and may include automated exposure control or mA/KV adjustment according to patient size. FINDINGS: A pulmonary embolus is not seen. A thoracic aortic aneurysm is not noted. A pleural effusion is not seen. A pericardial effusion is not seen. Left lower lobe consolidation IMPRESSION: Negative for a pulmonary embolism. Left lower lobe consolidation probably pneumonia. This should be followed until it is clear to help e xclude a post obstructive process/underlying mass
[2021-03-28 14:14] LABS: Magnesium 2.3
[2021-03-28] MEDS ORDERED: PNEUMOCOCCAL VACCINE 0.5 ML IMVAC ONE ×2 (15:00→15:12)
[2021-03-28] MEDS ORDERED: CEFEPIME 1 GM/VIAL ONE (15:40)
[2021-03-28] MEDS: CEFEPIME 1 GM in NA CHLORIDE 0.9% 100 ML IV SCH (15:49)
[2021-03-28] MEDS ORDERED: INSULIN -REGULAR HUMAN 50 UNIT/0.5 ML ML ONE ×2 (17:17→21:27)
--- NOTE | 2021-03-28 20:55 | CON ---
Date of Consultation: 03/28/2021 Reason For Consultation: Chest pain. History Of Present Illness: Mr. Pringle is a 75-year-old male. He is a patient of Dr. Sanchez. He ju st had an angioplasty of his right leg at [facility] yesterday. He had a catheterization about a y ear ago and apparently had a small vessel disease, patent grafts, medical therapy. This was done by Dr. Sanchez. He has a history of congestive heart failure, pacemaker, diabetes with foot ulcer. He ca me in with atypical chest pain and congestive heart failure. Troponin was 5056. BNP was 6890. Ches t x-ray showed edema, possible pneumonia. Past Medical History: As stated above. Allergies: HE IS ALLERGIC TO MEDICATIONS; LIRAGLUTIDE, BOCEPREVIR. Review of Systems: Negative. Social History: Negative. Family History: Negative. Medications: At home include Imdur, aspirin, Lipitor, metformin, Ranexa, Plavix, insulin, Singulair, valsartan, hydrochlorothiazide. Physical Examination: General: He is completely asymptomatic when I saw him. Vital Signs: Stable. Afebrile. Sinus rhythm. HEENT: Negative. Neck: Supple. No bruit. Chest: Clear to auscultation and percussion. Cardiac: Revealed regular rhythm and rate with an S4 gallop. No murmurs or rubs. Abdomen: Benign. Extremities: Revealed no clubbing, cyanosis, or edema. Diagnostic Data: As stated earlier. Impression And Plan: Non-ST elevation myocardial infarction, probably secondary to congestive heart failure and chronic coronary artery disease and renal insufficiency. There is an echocardiogram pend ing for Tuesday if he stays. I think another catheterization is unlikely considering he just had one recently. I will call Dr. Sanchez and see what he found on home and have him follow up with Dr. Sanchez when he goes home. I would increase his Imdur and increase his beta-corey meanwhile. Continue, ot herwise, his other regimen. He has a pacemaker that is functioning appropriately. He had CABG and h ad recent angioplasty of his leg yesterday. Has diabetic foot ulcer that needs to be addressed. All his other problems seem to be stable at this point. NB/MODL Voice ID: [id number] Report ID: [id number]
[2021-03-28] MEDS: ATORVASTATIN 40 MG TAB PO SCH (21:00)
[2021-03-28] MEDS ORDERED: ENOXAPARIN 100 MG/ML SYR SQ ONE (21:29)
[2021-03-29] MEDS: CEFEPIME 1 GM in NA CHLORIDE 0.9% 100 ML IV SCH ×2 (03:47→16:12)
[2021-03-29] MEDS ORDERED: VANCOMYCIN 1.75 GM in NA CHLORIDE 0.9% 500 ML IVPB SCH ×2 (04:00→05:30)
[2021-03-29 04:23] LABS: Hematocrit 36.4 % (39.6-49.0); Lymphocytes % 8.1 % (15.3-44.8); MPV 8.1 fL (7.6-11.3); RBC Red Blood Cell Count 4.21 M/uL (4.33-5.43)
[2021-03-29 05:18] LABS: Albumin 2.2 g/dL (3.4-5.0); Bilirubin Total 1.3 mg/dL (0.2-1.0); Protein, Total 7.1 g/dL (6.4-8.2); Thyroid Stimulating Hormone 0.276 uIU/mL (0.360-3.740)
[2021-03-29 05:19] LABS: Troponin High Sensitivity 12226.1 pg/mL (<58.9)
[2021-03-29] MEDS: METOPROLOL XL 25 MG TAB PO SCH (05:21)
--- NOTE | 2021-03-29 06:26 | P.PN ---
Date of Service: 03/29/21 Subjective: Breathing slightly improved Hypotensive this morning No new complaints Chest discomfort with deep inspiration ROS: 10 point ROS as noted above, otherwise negative Physical exam GEN: Alert, oriented, NAD HEENT: Normal conjunctiva, sclera anicteric CV: Regular rate and rhythm, trace bilateral pedal edema Pulm: non labored respirations on 2 L nasal cannula, bilateral crackles at bases, L>R ABD: Soft, nontender, nondistended Integumentary: R foot: dorsal ulceration over 1st-2nd digit, surrounding erythema, no abscess palpated Neuro: Normal speech, normal affect Problem List NSTEMI Acute hypoxic respiratory failure secondary to pneumonia and mild CHF exacerbationunknown EF ulceration dorsum of right foot, suspect arterial etiology Diabetes most type IIinsulin-dependent CAD status post CABG with pacemaker/defibrillator Renal insufficiency Hypertension Hyperlipidemia PVD status post balloon angioplasty arteries in the right leg Abnormal LFTs/bili NSTEMI CAD status post CABG with pacemaker/defibrillator Acute hypoxic respiratory failure secondary to pneumonia and mild CHF exacerbationunknown EF NSTEMI possibly demand ischemia/acute renal insufficiency Cardiology consulted, placed on therapeutic Lovenox on 03/28 to cover for possible PE and NSTEMI. Cardiology recommended continuing aspirin and Plavix as well No current plans for cardiac catheterization, no PE on CT, de-escalate Lovenox dosed VTE prophylaxis, continue aspirin and Plavix 1500 cc/day fluid restriction, daily weights. Lasix changed to once daily on 03/28, diuresing well borderline low blood pressure Echocardiogram ordered for Tuesday per cardiology Pulmonology consulted Ulceration of dorsum of right foot suspect arterial etiology With surrounding erythema, no appreciable abscess General surgery consulted, no surgical intervention needed at this time Agree with continued antibiotics, currently on IV, cultures pending. Can likely transition to p.o. tomorrow/discharge Diabetes most type IIinsulin-dependent: Patient takes Tresiba 40 units daily in addition to Novolin sliding scale. Continue long-acting insulin with mildly reduced dose in addition to sliding scale. Renal insufficiency: Patient reports after battling with Covid his renal function got worse and it has improved some although he is aware that it is "not great". Unsure of patient's current baseline renal function will continue to trend, consult nephrology for any worsening. improved s/p 2 angiograms (~8days and 1 day prior to admission), now CTA done on 03/28 HTN HLD PVD s/p balloon angioplasty of the right leg Confirm home medications, continue as appropriate Time Spent Managing Pts Care (In Minutes): 35
[2021-03-29] MEDS: INSULIN -REGULAR HUMAN 50 UNIT/0.5 ML ML SQ SCH ×4 (07:30→21:33)
[2021-03-29] MEDS: COLLAGENASE 30 GM OINTMENT TOP SCH (09:19)
[2021-03-29] MEDS: ENOXAPARIN 100 MG/ML SYR SQ SCH (09:19)
[2021-03-29] MEDS: ASPIRIN EC 81 MG TAB PO SCH (09:19)
[2021-03-29] MEDS: CLOPIDOGREL 75 MG TABLET PO SCH (09:19)
[2021-03-29] MEDS: ISOSORBIDE MONO SR 30 MG TAB PO SCH (09:20)
[2021-03-29] MEDS: INSULIN GLARGINE 100 UNIT/ML SQ SCH (09:20)
--- NOTE | 2021-03-29 11:01 | PN ---
Date of Progress Note: 03/29/2021 Subjective: The patient is awake, alert. No complaints. Objective: Vitals stable, afebrile. Laboratory Data: Reviewed. His white count is 12.8. Assessment And Plan: The right foot has had necrotic eschar, which appears to be connor a littl e bit and there is redness in the forefoot in the medial foot proximal to the ulcer, obvious concerni ng cellulitis versus reperfusion. As the white count is elevated, I think the patient should be yumiko amee with antibiotics and the patient at some point needs debridement of that area, but I will await u ntil this wound demarcates itself, little bit better and plus he is on Lovenox and Plavix. At this t lucy, it is not the optimal time for debridement. Perhaps when he is more medically stabilized, it ca n be as an outpatient. KEMAL/BARBARA Voice ID: [id number] Report ID: [id number]
--- NOTE | 2021-03-29 14:45 | EKG ---
Test Date: 2021-03-28 Test Time: 01:18:44 Behavioral Interventionist: MEASUREMENT RESULTS: Intervals: Rate: 105 SD: 190 QRSD: 134 QT: 378 QTc: 499 [place]: P: 57 SD: 190 QRS: -23 T: 143 INTERPRETIVE STATEMENTS: Sinus tachycardia Left ventricular hypertrophy with QRS widening and repolarization abnormality Abnormal ECG Compared to ECG 04/12/2016 06:23:41 Left ventricular hypertrophy now present Early repolarization now present Sinus rhythm no longer present Left-axis deviation no longer present Myocardial infarct finding no longer present Electronically Signed On 03-29-21 14:43:49 SURVEY RESEARCH ASSOCIATE by Triston Crodova
[2021-03-29 16:21] LABS: Magnesium 2.2
--- NOTE | 2021-03-29 17:00 | PN ---
Date of Progress Note: 03/29/2021 Subjective: Mr. Pringle was admitted to the hospital because of a diabetic foot ulcer. Dr. Tonya fink seen him for possible debridement in the future. His troponins were elevated and they are trending down. He is not having any further chest pain, but still has hypoxia secondary to pneumonia and CHF . He is on Lovenox for DVT prophylaxis. He is continuing to get appropriate medications include asp irin, Plavix, metoprolol, and Lasix. He is on antibiotics. We will continue to follow him. An echo cardiogram is pending for tomorrow. LASHON/BARBARA Voice ID: [id number] Report ID: [id number]
[2021-03-29] MEDS: ATORVASTATIN 40 MG TAB PO SCH (20:11)
[2021-03-29] MEDS: MORPHINE 2 MG/ML SYR IV PRN (21:34)
[2021-03-30] MEDS: CEFEPIME 1 GM in NA CHLORIDE 0.9% 100 ML IV SCH (03:11)
[2021-03-30 03:56] LABS: Absolute Lymphocytes (CBC) 1.4 K/uL (0.7-4.9); Hematocrit 33.7 % (39.6-49.0); Lymphocytes % 12.5 % (15.3-44.8); MPV 8.3 fL (7.6-11.3); RBC Red Blood Cell Count 3.89 M/uL (4.33-5.43)
[2021-03-30] MEDS: VANCOMYCIN 1.75 GM in NA CHLORIDE 0.9% 500 ML IVPB SCH (04:00)
[2021-03-30 04:34] LABS: Bilirubin Total 1.6 mg/dL (0.2-1.0); Potassium 3.9 mmol/L (3.5-5.1); Protein, Total 6.8 g/dL (6.4-8.2)
--- NOTE | 2021-03-30 06:22 | P.PN ---
Date of Service: 03/30/21 Subjective: States he feels about the same, maybe slightly better breathing Still requiring oxygen supplementation No nausea/vomiting, no diarrhea, no dysuria Had episode of chest pain and shortness of breath yesterday afternoon. Troponin downtrending, EKG without ST elevation ROS: 10 point ROS as noted above, otherwise negative Physical exam GEN: Alert, oriented, NAD HEENT: Normal conjunctiva, sclera anicteric CV: Regular rate and rhythm, trace bilateral pedal edema Pulm: non labored respirations on 2 L nasal cannula, bilateral crackles at bases, L>R ABD: Soft, nontender, nondistended Integumentary: R foot: dorsal ulceration over 1st-2nd digit, surrounding erythema, no abscess palpated Neuro: Normal speech, normal affect Problem List NSTEMI Acute hypoxic respiratory failure secondary to pneumonia and mild CHF exacerbationunknown EF ulceration dorsum of right foot, suspect arterial etiology with cellulitis Diabetes most type IIinsulin-dependent CAD status post CABG with pacemaker/defibrillator Renal insufficiency Hypertension Hyperlipidemia PVD status post balloon angioplasty arteries in the right leg Abnormal LFTs/bili NSTEMI CAD status post CABG with pacemaker/defibrillator Acute hypoxic respiratory failure secondary to pneumonia and mild CHF exacerbationunknown EF NSTEMI possibly demand ischemia/acute renal insufficiency Cardiology consulted, placed on therapeutic Lovenox on 03/28 to cover for possible PE and NSTEMI. Cardiology recommended continuing aspirin and Plavix as well No current plans for cardiac catheterization, no PE on CT, de-escalate Lovenox dosed VTE prophylaxis, continue aspirin and Plavix 1500 cc/day fluid restriction, daily weights. Lasix changed to once daily on 03/28, diuresing well borderline low blood pressure Echocardiogram today Cardiology recommends starting Ranexa 500 twice daily Pulmonology consulted Ulceration of dorsum of right foot with cellulitis suspect arterial etiology With surrounding erythema, no appreciable abscess General surgery consulted, no surgical intervention needed at this time. Recommends ruling out osteomyelitis Continue antibiotics, currently on IV. Diabetes most type IIinsulin-dependent: Patient takes Tresiba 40 units daily in addition to Novolin sliding scale. Continue long-acting insulin with mildly reduced dose in addition to sliding scale. Renal insufficiency: Patient reports after battling with Covid his renal function got worse and it has improved some although he is aware that it is "not great". Unsure of patient's current baseline renal function will continue to trend, consult nephrology for any worsening. s/p 2 angiograms (~8days and 1 day prior to admission), now CTA done on 03/28 Improving HTN HLD PVD s/p balloon angioplasty of the right leg Confirm home medications, continue as appropriate Code: Full Dispo: Anticipate DC home in 1-2 days, wean oxygen supplementation Time Spent Managing Pts Care (In Minutes): 35
[2021-03-30] MEDS: METOPROLOL XL 25 MG TAB PO SCH (06:32)
[2021-03-30] MEDS: MORPHINE 2 MG/ML SYR IV PRN ×3 (06:55→20:55)
[2021-03-30] MEDS: INSULIN -REGULAR HUMAN 50 UNIT/0.5 ML ML SQ SCH ×5 (07:30→20:56)
[2021-03-30] MEDS: INSULIN GLARGINE 100 UNIT/ML SQ SCH (09:17)
[2021-03-30] MEDS: CLOPIDOGREL 75 MG TABLET PO SCH (09:17)
[2021-03-30] MEDS: ASPIRIN EC 81 MG TAB PO SCH (09:17)
[2021-03-30] MEDS: COLLAGENASE 30 GM OINTMENT TOP SCH (09:17)
[2021-03-30] MEDS: ISOSORBIDE MONO SR 30 MG TAB PO SCH (09:17)
[2021-03-30] MEDS: ENOXAPARIN 40 MG/0.4 ML SQ SCH (09:17)
--- NOTE | 2021-03-30 09:24 | RAD REPORT ---
EXAM DESCRIPTION: RAD - Chest Single View - 03/30/2021 7:10 am CLINICAL HISTORY: hypoxia, f/u pneumonia / pulm edema Chest pain. COMPARISON: Chest Single View dated 03/28/2021; Chest Pa And Lat (2 Views) dated 04/10/2016 FINDINGS: Portable technique limits examination quality. Underinflated lungs are seen with no real change in mild bilateral pulmonary opacities. The heart is mildly prominent in size. Sternotomy wires are present.Multi lead pacer/defibrillator device is prese nt. IMPRESSION: When accounting for underinflated lungs, no real change is seen since prior study.
--- NOTE | 2021-03-30 11:31 | PN ---
Date of Progress Note: 03/30/2021 Subjective: The patient is awake alert. No complaint. Vitals stable, afebrile. Objective: No significant changes. Assessment: Cellulitis of right foot with necrotic wound and peripheral vascular disease. Recommendations: The patient cannot have an MRI to rule out osteo because of his pacemaker, therefor e we will order a bone scan and then determine whether the patient needs long-term IV antibiotics or not and wound care as ordered. /MODL Voice ID: [id number] Report ID: [id number]
--- NOTE | 2021-03-30 11:32 | EKG ---
Test Date: 2021-03-29 Test Time: 16:19:17 Manager Social Services: CARMEN Clarke MEASUREMENT RESULTS: Intervals: Rate: 104 NE: 198 QRSD: 128 QT: 366 QTc: 481 [place]: P: 62 NE: 198 QRS: -25 T: 140 INTERPRETIVE STATEMENTS: Sinus tachycardia Left bundle branch block Abnormal ECG Compared to ECG 03/28/2021 01:18:44 Left bundle-branch block now present Left ventricular hypertrophy no longer present Early repolarization no longer present Electronically Signed On 03-30-21 11:30:27 JOURNEYMAN MECHANIC by Triston Cordova
--- NOTE | 2021-03-30 11:52 | P.CNS ---
Date of Consult: 03/30/21 Reason for Consult: Abnormal chest x-ray Chief Complaint: CHF exacerbation History of Present Illness: Patient is 75 years of age metabolic syndrome multiple medical problems including peripheral vascular disease presented to the emergency room with some chest pain he was found to be hypoxic troponin was also elevated patient had a balloon angioplasty in his right leg still complains of some shortness of breath Allergies boceprevir [From Victrelis] Allergy (Verified 04/11/16 08:55) Hives/Rash liraglutide [From Victoza] Allergy (Verified 04/11/16 04:16) Itching/Hives/Rash Home Medications: Aspirin [Aspirin EC 81 MG] 81 mg PO DAILY 04/11/16 Atorvastatin Calcium 40 mg PO DAILY 03/28/21 Clopidogrel Bisulfate [Clopidogrel] 75 mg PO DAILY 03/28/21 Ferrous Sulfate 325 mg PO DAILY 03/28/21 Insulin Aspart [Novolog Flexpen] 100 units SQ PRN 03/28/21 Insulin Degludec [Tresiba] 40 units SQ DAILY 03/28/21 Isosorbide Dinitrate 30 mg PO DAILY 03/28/21 Metformin HCl 850 mg PO BID 03/28/21 Montelukast [Singulair*] 10 mg PO DAILY 03/28/21 Ranolazine [Ranolazine ER] 500 mg PO BID 03/28/21 Valsartan 320 mg PO DAILY 03/28/21 hydroCHLOROthiazide [Hydrochlorothiazide] 25 mg PO DAILY 03/28/21 icosapent ethyL [Vascepa 1 gm Cap] 1 gm PO BID 03/28/21 - Past Medical/Surgical History Diabetic: Yes -: CHF -: Diabetes type 2insulin-dependent -: Hypertension -: Hyperlipidemia -: PVD -: cabg -: bilateral cataract sx -: left hip sx x3 Psychosocial/ Personal History: Patient lives at home with his . - Family History Father Medical History: Heart disease, Diabetes Mother Medical History: Heart disease, Diabetes - Social History Smoking Status: Never smoker Alcohol use: Yes CD- Drugs: No Caffeine use: No Place of Residence: Home Review of Systems General: Weakness Respiratory: Shortness of Breath Cardiovascular: Chest Pain Physical Examination Temp Pulse Resp BP Pulse Ox 98.4 F 97 H 18 142/64 H 93 03/30/21 08:00 03/30/21 08:00 03/30/21 08:00 03/30/21 08:00 03/30/21 08:00 General: Alert, In no apparent distress, Mild distress Respiratory: Crackles/rales (Crackles at the right base) Cardiovascular: No edema, Regular rate/rhythm, Normal S1 S2 Gastrointestinal: Normal bowel sounds, Soft and benign - Problems (1) Shortness of breath Current Visit: Yes Status: Acute Plan: Patient is 75 years of age admitted with shortness of breath he has left lower lobe atelectasis/consolidation white count is mildly elevated patient is hypoxic blood pressure is stable requiring oxygen no cultures have been sent no fever he still short of breath we will plan to repeat a PA and lateral chest x-ray patient has an ulcer and cellulitis of his right foot scheduled to have an MRI/change to p.o. levofloxacin await MRI of the right foot may need a bronchoscopy for failure to resolve
--- NOTE | 2021-03-30 13:31 | PN ---
Date of Progress Note: 03/30/2021 Mr. Pringle had come in with CHF, pneumonia, hypoxia, elevated troponin, chest pain. Has a history o f CABG, known to have small vessel disease by recent catheterization distally by Dr. Sanchez. Medical therapy has been recommended. Echocardiogram showed an ejection fraction about 40% to 45%. I will d iscuss the case further with Dr. Madden. I do not think we need to do another catheterization since demetrius barraza just had one 6 months ago. I suggest Ranexa 500 b.i.d. LASHON/BARBARA Voice ID: [id number] Report ID: [id number]
--- NOTE | 2021-03-30 14:02 | ECHO ---
HEIGHT: 5 ft 8 in WEIGHT: 208 lb 0.098 oz DATE OF STUDY: 03/30/[address]: Triston Cordova MD 2-DIMENSIONAL: YES M.MODE: YES DOPPLER: YES COLOR FLOW: YES TDS: NO PORTABLE: NO DEFINITY: NO BUBBLE STUDY: NO DIAGNOSIS: CONGESTIVE HEART FAILURE CARDIAC HISTORY: CATHERIZATION: NO SURGERY: NO PROSTHETIC VALVE: NO PACEMAKER: YES MEASUREMENTS (cm) DIASTOLIC (NORMALS) SYSTOLIC (NORMALS) IVSd 0.8 (0.6-1.2) LA Diam 3.5 (1.9-4.0) LVEF 40-45% LVIDd 5.4 (3.5-5.7) LVIDs 3.9 (2.0-3.5) %FS 28% LVPWd 1.0 (0.6-1.2) Ao Diam 2.8 (2.0-3.7) 2 DIMENSIONAL ASSESSMENT: RIGHT ATRIUM: NORMAL LEFT ATRIUM: NORMAL RIGHT VENTRICLE: NORMAL LEFT VENTRICLE: NORMAL TRICUSPID VALVE: NORMAL MITRAL VALVE: NORMAL PULMONIC VALVE: NORMAL AORTIC VALVE: SCLEROSIS PERICARDIAL EFFUSION: NONE AORTIC ROOT: NORMAL LEFT VENTRICULAR WALL MOTION: MILD GLOBAL HYPOKINESIS. DOPPLER/COLOR FLOW: MILD TRICUSPID REGURGITATION. COMMENTS: MILD TRICUSPID REGURGITATION. MILD GLOBAL HYPOKINESIS. EJECTION FRACTION 4-45%. AORTIC SCLEROSIS. TECHNOLOGIST: SILVER SMALLWOOD
[2021-03-30 14:21] LABS: Magnesium 2.2
--- NOTE | 2021-03-30 14:32 | RAD REPORT ---
EXAM DESCRIPTION: Naveen Pa And Lat (2 Views)03/30/2021 2:20 pm CLINICAL HISTORY: Cough COMPARISON: March 30, 2021 FINDINGS: No significant change in the left lower lobe opacity. Mild atelectasis right lung. Cardiomegaly. Pacemaker leads in place. Postsurgical changes involve the chest
[2021-03-30] MEDS: ATORVASTATIN 40 MG TAB PO SCH (20:54)
[2021-03-31 03:11] LABS: Absolute Lymphocytes (CBC) 1.5 K/uL (0.7-4.9); Hematocrit 30.7 % (39.6-49.0); MPV 7.7 fL (7.6-11.3); RBC Red Blood Cell Count 3.56 M/uL (4.33-5.43)
[2021-03-31 03:23] LABS: Albumin 1.9 g/dL (3.4-5.0); Bilirubin Total 1.2 mg/dL (0.2-1.0); Protein, Total 6.6 g/dL (6.4-8.2)
[2021-03-31] MEDS: VANCOMYCIN 1.75 GM in NA CHLORIDE 0.9% 500 ML IVPB SCH (04:00)
[2021-03-31] MEDS: METOPROLOL XL 25 MG TAB PO SCH (05:39)
[2021-03-31 05:58] LABS: Magnesium 2.2
[2021-03-31] MEDS: INSULIN -REGULAR HUMAN 50 UNIT/0.5 ML ML SQ SCH ×4 (07:30→20:46)
[2021-03-31] MEDS: levoFLOXacin 750 MG TAB PO SCH (08:27)
[2021-03-31] MEDS: ASPIRIN EC 81 MG TAB PO SCH (08:27)
[2021-03-31] MEDS: CLOPIDOGREL 75 MG TABLET PO SCH (08:27)
[2021-03-31] MEDS: ENOXAPARIN 40 MG/0.4 ML SQ SCH (08:27)
[2021-03-31] MEDS: ISOSORBIDE MONO SR 30 MG TAB PO SCH (08:27)
[2021-03-31] MEDS: COLLAGENASE 30 GM OINTMENT TOP SCH (08:28)
[2021-03-31] MEDS: INSULIN GLARGINE 100 UNIT/ML SQ SCH (08:28)
[2021-03-31] MEDS: MORPHINE 2 MG/ML SYR IV PRN (08:29)
--- NOTE | 2021-03-31 12:23 | P.PN ---
Subjective Date of Service: 03/31/21 Chief Complaint: Left lower lobe possible pneumonia No change patient is still short of breath on oxygen Review of Systems General: Weakness Respiratory: Shortness of Breath Physical Examination - Vital Signs Temperature: 97.7 F Blood Pressure: 147/69 Pulse: 93 Respirations: 26 Pulse Ox (%): 97 - Physical Exam General: Oriented x3, Cooperative Respiratory: Crackles/rales (Crackles at the left base) Assessment And Plan - Current Problems (Diagnosis) (1) Pneumonia Current Visit: Yes Status: Acute Plan: Patient appears to have a left lower lobe consolidation White count is mildly elevated p.o. is still hypoxic denies any chest pain or productive cough continue with levofloxacin repeat chest x-ray in 2 weeks if changes persist may need bronchoscopic evaluation Qualifiers: Laterality: left
--- NOTE | 2021-03-31 13:15 | RAD REPORT ---
EXAM DESCRIPTION: NM - Bone Imaging Three Phase - 03/31/2021 11:27 am CLINICAL HISTORY: Foot pain and swelling COMPARISON: None TECHNIQUE: 26.1 mCi Tc MDPwas administered intravenously. Three-phase bone scan of feet obtained. FINDINGS: The patient has an ulcer on the ventral aspect of the right foot. Perfusion images demonstrate increased radiotracer activity to the right foot. Blood pool images demo nstrate relatively symmetric radiotracer activity to 2 feet Delayed images do not demonstrate significant abnormal radiotracer activity to the right foot. IMPRESSION: Increased radiotracer activity to the right foot on perfusion images probably a cellulit is No evidence of osteomyelitis
--- NOTE | 2021-03-31 15:09 | PN ---
Date of Progress Note: 03/31/2021 Subjective: The patient is awake, alert. No complaint. Objective: Vitals stable, afebrile. No change. Assessment: Right foot wound with cellulitis and peripheral vascular disease, congestive heart failu re exacerbation. Recommendations: Await bone scan. If it is positive, the patient will need 6 weeks of IV antibiotic s. Wound care as ordered. Plan of care discussed with Dr. Hernandez. /MODL Voice ID: [id number] Report ID: [id number]
--- NOTE | 2021-03-31 16:58 | P.PN ---
Subjective Date of Service: 03/31/21 Chief Complaint: Left lower lobe possible pneumonia Patient denies any complaint. He seems to be short of breath with speaking. Physical Examination - Vital Signs Temperature: 97.7 F Blood Pressure: 147/69 Pulse: 93 Respirations: 26 Pulse Ox (%): 97 Assessment And Plan - Plan Physical exam GEN: Alert, oriented, NAD HEENT: Normal conjunctiva, sclera anicteric CV: Regular rate and rhythm, trace bilateral pedal edema Pulm: bilateral crackles at bases, L>R ABD: Soft, nontender, nondistended Integumentary: R foot: dorsal ulceration over 1st-2nd digit, surrounding erythema. Neuro: Normal speech, normal affect Problem List NSTEMI Acute hypoxic respiratory failure secondary to pneumonia and mild CHF exacerbationunknown EF ulceration dorsum of right foot, suspect arterial etiology with cellulitis Diabetes most type IIinsulin-dependent CAD status post CABG with pacemaker/defibrillator Renal insufficiency Hypertension Hyperlipidemia PVD status post balloon angioplasty arteries in the right leg Abnormal LFTs/bili NSTEMI CAD status post CABG with pacemaker/defibrillator Acute hypoxic respiratory failure secondary to pneumonia. Acute on chronic diastolic heart failure NSTEMI possibly demand ischemia/acute renal insufficiency Cardiology consulted, placed on therapeutic Lovenox on 03/28 to cover for possible PE and NSTEMI. Cardiology recommended continuing aspirin and Plavix as well No current plans for cardiac catheterization, no PE on CT. continue aspirin and Plavix 1500 cc/day fluid restriction, daily weights. Continue current dose Lasix. Echocardiogram: EF 40 to 45% Ranexa 500 twice daily per cardiology Seen by pulmonary. Patient started on Levaquin for left lower lobe consolidation. Ulceration of dorsum of right foot with cellulitis/PVD s/p balloon angioplasty of the right leg suspect arterial etiology. History of PVD status post balloon angioplasty General surgery-Dr. Castaneda's input appreciated. Bone scan negative for osteomyelitis. Per Dr. Castaneda, no surgical intervention needed at this time. Continue antibiotics. Local wound care. Diabetes most type IIinsulin-dependent: Patient takes Tresiba 40 units daily in addition to Novolin sliding scale. Continue current insulin regimen. SHELBY Resolved. HTN/HLD Continue home medications.
[2021-03-31] MEDS: icosapent ethyL 1 GM CAP PO SCH (20:45)
[2021-04-01] MEDS: VANCOMYCIN 1.75 GM in NA CHLORIDE 0.9% 500 ML IVPB SCH (04:00)
[2021-04-01] MEDS: METOPROLOL XL 25 MG TAB PO SCH (05:58)
[2021-04-01] MEDS: INSULIN -REGULAR HUMAN 50 UNIT/0.5 ML ML SQ SCH ×4 (07:30→21:14)
[2021-04-01] MEDS ORDERED: MONTELUKAST 10 MG TAB PO SCH (09:00)
[2021-04-01] MEDS: INSULIN GLARGINE 100 UNIT/ML SQ SCH (09:36)
[2021-04-01] MEDS: levoFLOXacin 750 MG TAB PO SCH (09:41)
[2021-04-01] MEDS: ENOXAPARIN 40 MG/0.4 ML SQ SCH (09:41)
[2021-04-01] MEDS: FERROUS SULFATE 325 MG TAB PO SCH (09:42)
[2021-04-01] MEDS: CLOPIDOGREL 75 MG TABLET PO SCH (09:42)
[2021-04-01] MEDS: hydroCHLOROthiazide 25 MG TAB PO SCH (09:42)
[2021-04-01] MEDS: ISOSORBIDE MONO SR 30 MG TAB PO SCH (09:43)
[2021-04-01] MEDS: ASPIRIN EC 81 MG TAB PO SCH (09:43)
[2021-04-01] MEDS: VALSARTAN 160 MG TAB PO SCH (09:44)
[2021-04-01] MEDS: ATORVASTATIN 40 MG TAB PO SCH ×2 (09:58→21:07)
[2021-04-01] MEDS: icosapent ethyL 1 GM CAP PO SCH ×2 (09:59→21:06)
[2021-04-01] MEDS: COLLAGENASE 30 GM OINTMENT TOP SCH (09:59)
--- NOTE | 2021-04-01 10:18 | PN ---
Date of Progress Note: 04/01/2021 Subjective: The patient is awake, alert. No complaint. Objective: Vital Signs: Stable, afebrile. Extremities: Decreasing redness and wrinkling of the skin indicating decreasing edema. Laboratory Data: Bone scan is negative for osteomyelitis. It does, however, show cellulitis. Assessment: Cellulitis and wound of right foot with peripheral vascular disease. Recommendations: Continue IV antibiotics and wound care. The patient can be discharged home on oral antibiotics per Pulmonary Service. 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 /MODL Voice ID: [id number] Report ID: [id number]
--- NOTE | 2021-04-01 15:25 | P.PN ---
Subjective Date of Service: 04/01/21 Chief Complaint: Left lower lobe possible pneumonia Patient states his shortness of breath is improving. He remains on 2 L oxygen by nasal cannula. Physical Examination - Vital Signs Temperature: 97.7 F Blood Pressure: 116/56 Pulse: 77 Respirations: 22 Pulse Ox (%): 99 Assessment And Plan - Plan Physical exam GEN: Alert, oriented, NAD HEENT: Normal conjunctiva, sclera anicteric CV: Regular rate and rhythm, trace bilateral pedal edema Pulm: bilateral crackles at bases, L>R ABD: Soft, nontender, nondistended Integumentary: R foot: dorsal ulceration over 1st-2nd digit, surrounding erythema. 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 Cardiology recommended continuing aspirin and Plavix as well No current plans for cardiac catheterization, no PE on CT. continue aspirin and Plavix 1500 cc/day fluid restriction, daily weights. Continue Lasix. Echocardiogram: EF 40 to 45% Ranexa 500 twice daily per cardiology Seen by pulmonary. Patient started on Levaquin for left lower lobe consolidation. Wean off oxygen as tolerated. Patient may qualify for home oxygen. Ulceration of dorsum of right foot with cellulitis/PVD s/p balloon angioplasty of the right leg suspect arterial etiology. History of PVD status post balloon angioplasty General surgery-Dr. Castaneda's input appreciated. Bone scan negative for osteomyelitis. Per Dr. Castaneda, no surgical intervention needed at this time. Continue antibiotics. Local wound care. Diabetes most type IIinsulin-dependent: Patient takes Tresiba 40 units daily in addition to Novolin sliding scale. Continue current insulin regimen. SHELBY Resolved. HTN/HLD Continue home medications.
[2021-04-01] MEDS ORDERED: MELATONIN 5 MG TABLET PO PRN (20:39)
[2021-04-02] MEDS: VANCOMYCIN 1.75 GM in NA CHLORIDE 0.9% 500 ML IVPB SCH (04:00)
[2021-04-02 05:01] LABS: Absolute Lymphocytes (CBC) 1.6 K/uL (0.7-4.9); Hematocrit 31.4 % (39.6-49.0); Lymphocytes % 18.1 % (15.3-44.8); MPV 7.7 fL (7.6-11.3); RBC Red Blood Cell Count 3.63 M/uL (4.33-5.43)
[2021-04-02] MEDS: METOPROLOL XL 25 MG TAB PO SCH (05:16)
[2021-04-02] MEDS: INSULIN -REGULAR HUMAN 50 UNIT/0.5 ML ML SQ SCH ×2 (07:30→11:30)
[2021-04-02] MEDS: INSULIN GLARGINE 100 UNIT/ML SQ SCH (08:35)
[2021-04-02] MEDS: ISOSORBIDE MONO SR 30 MG TAB PO SCH (08:37)
[2021-04-02] MEDS: levoFLOXacin 750 MG TAB PO SCH (08:37)
[2021-04-02] MEDS: ASPIRIN EC 81 MG TAB PO SCH (08:37)
[2021-04-02] MEDS: CLOPIDOGREL 75 MG TABLET PO SCH (08:37)
[2021-04-02] MEDS: VALSARTAN 160 MG TAB PO SCH (08:37)
[2021-04-02] MEDS: ENOXAPARIN 40 MG/0.4 ML SQ SCH (08:38)
[2021-04-02] MEDS: icosapent ethyL 1 GM CAP PO SCH (08:39)
[2021-04-02] MEDS: hydroCHLOROthiazide 25 MG TAB PO SCH (08:51)
[2021-04-02] MEDS: FERROUS SULFATE 325 MG TAB PO SCH (08:51)
[2021-04-02 08:59] VITALS: O2SAT 100
--- NOTE | 2021-04-02 15:13 | P.DS ---
Admission Date: 03/28/21 Discharge Date: 04/02/21 Disposition: DC HOME/HOME HEALTH CARE Discharge Condition: FAIR Reason for Admission: Left lower lobe possible pneumonia Brief History of Present Illness: 75-year-old male with history of CHF, diabetes mellitus type 2insulin- dependent, hypertension, hyperlipidemia, PVD presents to the emergency department for shortness of breath. Patient was found to be hypoxic on room air with saturations around 88% showed up tachypnea, dyspneic with crackles. Patient was given Nitropaste, Lasix in the emergency department with improvement in symptoms. Chest x-ray demonstrated volume overload pattern. Labs were significant for white blood cell count 12.2 hemoglobin 12.7 hematocrit 39.1 sodium 134 carbon oxide 19 BUN 35 creatinine 1.51 GFR 45 troponin 207.8, BNP 6890 T bili 1.5 bili 1.1 AST 113 ALT 83 alk phos 377. Patient also noted to have diabetic ulceration to the right foot. Patient reported he had a balloon angioplasty of the arteries of his right lower extremity done in order to reestablish blood flow for wound healing purposesa at [facility]. Patient also reports that he had a heart catheterization in October of last year, he did not require any stenting at that time. Patient admitted for further management. 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 Cardiology recommended continuing aspirin and Plavix as well No plans for cardiac catheterization, no PE on CT. medical management recommended. continued aspirin and Plavix Also treated with Lasix. Echocardiogram: EF 40 to 45% Ranexa 500 twice daily per cardiology Seen by pulmonary. Patient started on Levaquin for left lower lobe consolidation. Patient could not be weaned off oxygen. He qualifies for home oxygen which has been arranged. Ulceration of dorsum of right foot with cellulitis/PVD s/p balloon angioplasty of the right leg suspect arterial etiology. History of PVD status post recent balloon angioplasty Seen by General surgery-Dr. Castaneda's. Bone scan done which was negative for osteomyelitis. Per Dr. Castaneda, no surgical intervention needed at this time. Patient treated with antibiotic and local wound care. Diabetes most type IIinsulin-dependent: Patient takes Tresiba 40 units daily in addition to Novolin sliding scale. SHELBY Resolved. HTN/HLD Continued home medications. Patient clinically improved, shortness of breath resolved, he ambulates with a cane. Patient deemed stable for discharge. Vital Signs/Physical Exam: Temp Pulse Resp BP Pulse Ox 97.9 F 74 18 110/51 L 90 L 04/02/21 12:00 04/02/21 12:00 04/02/21 12:00 04/02/21 12:00 04/02/21 12:00 General: Alert, In no apparent distress, Oriented x3 HEENT: Mucous membr. moist/pink Neck: JVD not distended Respiratory: Clear to auscultation bilaterally, Normal air movement Cardiovascular: Edema Gastrointestinal: Soft and benign, Non-distended, No tenderness Musculoskeletal: No tenderness Integumentary: No cyanosis Neurological: Normal strength at 5/5 x4 extr Laboratory Data at Discharge: WBC 8.90 K/uL (4.3-10.9) D 04/02/21 04:45 Hgb 10.4 g/dL (13.6-17.9) L 04/02/21 04:45 Hct 31.4 % (39.6-49.0) L 04/02/21 04:45 Plt Count 351 K/uL (152-406) 04/02/21 04:45 PT 14.3 SECONDS (9.5-12.5) H 03/28/21 01:14 INR 1.24 03/28/21 01:14 Sodium 138 mmol/L (136-145) 04/02/21 04:45 Potassium 4.0 mmol/L (3.5-5.1) 04/02/21 04:45 BUN 26 mg/dL (7-18) H 04/02/21 04:45 Creatinine 1.07 mg/dL (0.55-1.3) 04/02/21 04:45 Glucose 144 mg/dL (74-106) H 04/02/21 04:45 Magnesium 2.2 03/31/21 02:55 Total Bilirubin 1.2 mg/dL (0.2-1.0) H 03/31/21 02:55 AST 125 U/L (15-37) H 03/31/21 02:55 ALT 73 U/L (12-78) 03/31/21 02:55 Alkaline Phosphatase 318 U/L (45-117) H 03/31/21 02:55 Triglycerides 106 mg/dL (<150) 03/29/21 04:04 Cholesterol 72 mg/dL (<200) 03/29/21 04:04 HDL Cholesterol 11 mg/dL (40-60) L 03/29/21 04:04 Cholesterol/HDL Ratio 6.55 03/29/21 04:04 Home Medications: Aspirin [Aspirin EC 81 MG] 81 mg PO DAILY 04/11/16 Atorvastatin Calcium 40 mg PO DAILY 03/28/21 Clopidogrel Bisulfate [Clopidogrel] 75 mg PO DAILY 03/28/21 Ferrous Sulfate 325 mg PO DAILY 03/28/21 Insulin Aspart [Novolog Flexpen] 100 units SQ PRN 03/28/21 Insulin Degludec [Tresiba] 40 units SQ DAILY 03/28/21 Isosorbide Dinitrate 30 mg PO DAILY 03/28/21 Metformin HCl 850 mg PO BID 03/28/21 Montelukast [Singulair*] 10 mg PO DAILY 03/28/21 Ranolazine [Ranolazine ER] 500 mg PO BID 03/28/21 Valsartan 320 mg PO DAILY 03/28/21 hydroCHLOROthiazide [Hydrochlorothiazide] 25 mg PO DAILY 03/28/21 icosapent ethyL [Vascepa 1 gm Cap] 1 gm PO BID 03/28/21 Collagenase [Santyl Ointment*] 1 appl TOP DAILY #1 tube 04/02/21 Metoprolol Succinate [Toprol Xl*] 50 mg PO DAILY #30 tab 04/02/21 levoFLOXacin [Levaquin*] 750 mg PO DAILY #4 tab 04/02/21 New Medications: levoFLOXacin [Levaquin*] 750 mg PO DAILY #4 tab Collagenase [Santyl Ointment*] 1 appl TOP DAILY #1 tube Metoprolol Succinate [Toprol Xl*] 50 mg PO DAILY #30 tab Diet: ADA Activity: Fall precautions Followup: Unknown,U [Primary Care Provider] - Time spent managing pt's care (in minutes): 36
[2021-04-02 16:50] VITALS: BP 90/50; TEMP 98
== END 2021-04-02 16:51 | disposition home or self-care (01) | DRG 280 ==
LOC: ER 00:53 → ERHOLD 03:08 → 2ND 21:26
PROVIDERS: ADMIT Hospitalist; ATTEND Internal Medicine
DX: I11.0 Hypertensive heart disease with heart failure (principal); J96.01 Acute respiratory failure with hypoxia; I21.A1 Myocardial infarction type 2; J18.9 Pneumonia, unspecified organism; I50.33 Acute on chronic diastolic (congestive) heart failure; L03.115 Cellulitis of right lower limb; N17.9 Acute kidney failure, unspecified; E11.51 Type 2 diabetes mellitus with diabetic peripheral angiopathy without gangrene; E11.621 Type 2 diabetes mellitus with foot ulcer; L97.519 Non-pressure chronic ulcer of other part of right foot with unspecified severity; N28.9 Disorder of kidney and ureter, unspecified; E78.5 Hyperlipidemia, unspecified; I25.10 Atherosclerotic heart disease of native coronary artery without angina pectoris; R94.5 Abnormal results of liver function studies; R77.8 Other specified abnormalities of plasma proteins; Z88.8 Allergy status to other drugs, medicaments and biological substances; Z79.82 Long term (current) use of aspirin; Z79.02 Long term (current) use of antithrombotics/antiplatelets; Z79.84 Long term (current) use of oral hypoglycemic drugs; Z79.4 Long term (current) use of insulin; Z79.899 Other long term (current) drug therapy; Z95.1 Presence of aortocoronary bypass graft; Z95.810 Presence of automatic (implantable) cardiac defibrillator; Z20.822 Contact with and (suspected) exposure to COVID-19; Z23 Encounter for immunization
CPT/HCPCS: 0241U; 36415; 71045; 71046; 71275; 76705; 78315; 80048; 80053; 80061; 80076; 80202; 81003; 82947; 83735; 83880; 84145; 84439; 84443; 84484; 85025; 85379; 85610; 90471; 90732; 93005; 93306; 93970; 96365; 96366; 96375; 99285; A9503; J0692; J1644; J1650; J1940; J2270; J2405; J3370; J3590; J7040; J7050; Q9967

== ENCOUNTER 2021-04-20 22:21 | Inpatient (IN) | payer OTHER ==
--- OUTSIDE RECORDS SUMMARY | 2021-04-20 22:25 | XMS REPORT | Continuity of Care Document ---
:1945 Author Organization [facility] t Address [address] [place] [address] [address]. [address] [place] [address] Care Team Providers Name Role Phone Unknown Primary Care Physician Unavailable DOV Attending Clinician Unavailable TIFF Attending Clinician Unavailable Maggie Attending Clinician Unavailable [...] KHALIDA Attending Clinician Unavailable KHALIDA Attending Clinician [phone] Mariah ANNA Attending Clinician Unavailable Mariah ANNA Attending Clinician [phone] JAYRO Attending Clinician Unavailable Maggie Admitting Clinician Unavailable JAYRO Admitting Clinician Unavailable Payers Payer Name Policy Type Policy Number Effective Date Expiration Date S jonah AETNA MEDICARE PPO [id number] 2016 00:00:00 AETNA MEDICARE ADV [id number] 2018 00:00:00 AETNA (MEDICARE [id number] 2021 REPLACEMENT PPO) 00:00:00 Problems Condition Condition [...] 00:00: [place] involving involving 00 Medi stefany [place] 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 [...] 1-14 it y of on on 00:00: [place] 00 Medical Branch Other Other Disease Active 2019-02 Univers hyperlipid hyperlipid 1-14 it y of emia emia 00:00: [place] 00 Medical Branch Type 2 Type 2 Disease Active 2019-02 Univers diabetes diabetes 1-14 ity of mellitus mellitus 00:00: [place] without without 00 Medical complicati complicati Br anch on, with on, with long-term long-term current current use of use of insulin insulin Hypoxia Hypoxia Disease Active 2019-02 Univers 1-13 ity of 00:00: [place] 00 Medical Branch Lumbar Lumbar Disease Active [facility] stenosis stenosis 806 Health with with 00:00: neurogenic neurogenic 00 claudicati claudicati on on Arthritis Arthritis Disease Active UT of right of right 806 Health hip hip 00:00: 00 History of History of Disease Active U T hip hip 8 Health replacemen replacemen 00:00: t, total, t, total, 00 left left Nondisplac Nondisplac Disease Active U T ed ed 7-05 [facility] 00:00: teric teric 00 fracture fracture of [...] nondisplac nondisplac it y of ed ed [facility] teric teric ans fracture fracture of left of left femur, femur, initial initial encounter encounter Closed Closed Problem Active Univers nondisplac nondisplac it y of ed ed [place] subtrchanning home subtrochan Ph ysici teric teric ans fracture fracture of left of left femur with femur with routine routine healing, healing, subsequent subsequent encounter encounter History of History of Problem Active U nivers hip hip ity of [place] t, total t, total Physic i ans Primary Primary Problem Active Univers osteoarthr osteoarthr it y of itis of itis of [place] right hip right hip Phys ici ans Spinal Spinal Problem Active Univers stenosis stenosis ity of of lumbar of [place] Physici with with ans neurogenic neurogenic claudicati claudicati on on Allergies, Adverse Reactions, Alerts Allergy Allergy Status Severity Reaction(s) Onset Inactive Treating Comm ents Source Name Type Date Date Clinician LIRAGLUT DRUG Active High Other-Cmnt Univ ers STERLING INGREDI 5-10 ity of 00:00: [place] 00 Medical Branch [...] take VICTOZA Allergy Active [place] [facility] Family History Family Member Diagnosis Comments Start Date Stop Date Source Sibling Family history of Univers ity of [place] diabetes mellitus Physici ans Sibling Family history of Univers ity of [place] cardiac disorder Physicia ns Mother Family history of Univers ity of [place] diabetes mellitus Physici ans Father Family history of Univers ity of [place] diabetes mellitus Physici ans Father Family history of Univers ity of [place] cardiac disorder Physicia ns Social History Social Habit Start Date Stop Date Quantity Comments Source Health-related 2019-06-05 Access He[facility] lt Behavior 00:00:00 Exposure to Not sure [place] [facility] SARS-CoV-2 (event) Alcohol intake [facility] Sex Assigned At Male [facility] Tobacco use and 2020-07-30 2020-07-30 Smokeless tobacco [facility] exposure 00:00:00 00:00:00 non-user Smoking Status Start Date Stop Date Source Never Smoker [facility] Never smoked tobacco [facility] Unknown if ever smoked [facility] Medications Ordered Filled Start Stop Current Ordering Indication Dosage Frequency Signature Comments Components Source Medication Medication Date Date Medication? Clinician (SIG) Name Name Novolog Novolog 2020-02 No Novolog Multani gor Flexpen Flexpen 2-22 Flexpen da U-100 U-100 [...] more ... cholecalcif 2020-02 Yes Take by [place] emma 2-08 mouth. Health (Vitamin 10:57: D3) 200 34 Unit tablet split tablet omega-3 2020-02 Yes Take by [place] (Fish Oil) 2-08 mouth. Health 1000 MG 10:57: capsule 34 alpha 2020-02 Yes Take by [place] tocopherol 2-08 mouth. Health (Vitamin E) 10:57: 100 units 34 capsule Zinc 10 MG 2020-02 Yes Take by [place] lozenge 2-08 mouth. Health 10:57: 34 meloxicam 2020-02 Yes UT (Mobic) 15 2-08 Health MG tablet 10:57: 34 montelukast 2020-02 Yes 10mg Take 10 mg UT (Singulair) 2-[address] [facility] 10 MG 10:57: tablet 34 FREESTYLE 2020-02 Yes [id number] USE U nivers JENISE 14 0-04 DIRECTED ity of DAY SENSOR 00:00: EVERY 14 [place] Kit 00 Medical Branch cholecalcif Yes Take by UT emma 6-09 mouth. Health (Vitamin 16:23: D3) 200 14 Unit tablet split tablet omega-3 Yes Take by UT (Fish Oil) 6 mouth. Health 1000 MG 16:23: capsule 14 alpha Yes Take by UT tocopherol 6 mouth. Health (Vitamin E) 16:23: 100 units 14 capsule Zinc 10 MG Yes Take by UT lozenge 6- mouth. Health 16:23: 14 meloxicam Yes UT (Mobic) 15 6 Health MG tablet 16:23: 14 montelukast Yes 10mg Take 10 mg UT (Singulair) 07-30 by mouth. Hea lth 10 MG 16:23: tablet 14 No known No No known UT medications 07-30 medication He alth 11:23: s 14 icosapent Yes [id number] 2g Take 2 Un scooby ethyL 6-03 capsules ity of (VASCEPA) 1 00:00: by mouth 2 [facility] 00 (two) Medical capsule times Branch daily. metFORMIN Yes 850mg Take 1 Unive rs 850 mg 07-22 tablet by ity of tablet 00:00: mouth 2 [place] 00 (two) Medical times Branch daily. insulin Yes [id number] 34U inject 34 Univers degludec 5-18 Units ity of (TRESIBA 00:00: under the [facility] s FLEXTOUCH 00 skin every Medi stefany U-100) 100 morning. Branc h unit/mL (3 mL) InPn montelukast Yes 10mg Take 10 mg UT (Singulair) -02 by mouth. Hea lth 10 MG 13:58: tablet 20 montelukast Yes 10mg Take 10 mg UT (Singulair) 5-02 by mouth. Hea lth 10 MG 13:58: tablet 20 meloxicam Yes UT (Mobic) 15 5-02 Health MG tablet 13:58: 19 meloxicam 0 Yes UT (Mobic) 15 5-02 Health MG tablet 13:58: 19 omega-3 2020-0 Yes Take by UT (Fish [...] 200 17 Unit tablet split tablet cholecalcif 2020-0 Yes Take by UT emma 5-02 mouth. Health (Vitamin 13:58: D3) 200 17 Unit tablet split tablet Continuous 2020-0 Yes 1 EACH UT Blood Gluc 3-25 DAILY. Health Soda Room Operator 00:00: E11.65 (FreeStyle 00 Jenise 14 Day [place]) device Continuous 2020-0 Yes 1 EACH UT Blood Gluc 3-25 DAILY. Health Soda Room Operator 00:00: E11.65 (FreeStyle 00 Jenise 14 Day [place]) device Continuous 2020-0 Yes 1 EACH UT Blood Gluc 3-25 DAILY. Health Soda Room Operator 00:00: E11.65 (FreeStyle 00 Jenise 14 Day [place]) device Continuous 2020-0 Yes 1 EACH UT Blood Gluc 3-25 DAILY. Health Soda Room Operator 00:00: E11.65 (FreeStyle 00 Jenise 14 Day [place]) device FREESTYLE 2020-0 Yes [id number] 1 EACH U nivers JENISE 14 3-25 DAILY. ity of DAY READER 00:00: E11.65 [place] [address] Medical Branch Continuous 2020-0 Yes 1{kit} 1 kit by U T Blood Gluc 3-19 Other Health Sensor 00:00: route. (FreeStyle 00 Jenise 14 Day Sensor) mis Continuous 2020-0 Yes 1{kit} 1 kit by U T Blood Gluc 3-19 Other Health Sensor 00:00: route. (FreeStyle 00 Jenise 14 Day Sensor) [facility] Continuous Yes 1{kit} 1 kit by U T Blood Gluc 3-19 Other Health Sensor 00:00: route. (FreeStyle 00 Jenise 14 Day Sensor) [facility] Continuous Yes 1{kit} 1 kit by U T Blood Gluc 3-19 Other Health Sensor 00:00: route. (FreeStyle 00 Jenise 14 Day Sensor) [facility] FREESTYLE 2021- No [id number] 1{kit} 1 Kit Univers JENISE 14 3-19 10-04 every 14 ity of DAY SENSOR 00:00: 00:00 (fourteen) [place] Kit 00 :00 days. Medical E11.65 Branch ZINC Yes Take by Univers ACETATE 3-17 mouth ity of ORAL 14:02: daily. [address] Branch vitamin E Yes Take by Univ ers acetate 3-17 mouth ity of (VITAMIN E 14:02: daily. [address] Branch cholecalcif Yes Take by Un scooby emma, 3-17 mouth ity of vitamin D3, 14:02: daily. [place] [facility] (VITAMIN D3 50 Medical ORAL) Branch montelukast Yes 10mg Take 10 mg Univers 10 mg 3-17 by mouth. ity of tablet 10:53: [address] Branch atorvastati Yes TAKE 1 Univ ers n 20 mg 1-29 TABLET BY ity of tablet 00:00: MOUTH [place] 00 EVERY DAY Medical IN THE Branch EVENING [...] mouth ity of mg tablet 00:00: every [place] 00 morning. Medical Branch budesonide- 2019-02 Yes INHALE 1 UT formoterol 1-04 PUFF BY Health (Symbicort) 00:00: MOUTH 160-4.5 00 TWICE A MCG/ACT DAY inhaler budesonide- 2019-02 Yes INHALE 1 UT formoterol 1-04 PUFF BY Health (Symbicort) 00:00: MOUTH 160-4.5 00 TWICE A MCG/ACT DAY inhaler budesonide- 2019- Yes INHALE 1 UT formoterol 1-04 PUFF BY Health (Symbicort) 00:00: MOUTH 160-4.5 00 TWICE A MCG/ACT DAY inhaler budesonide- 2019- Yes INHALE 1 UT formoterol 1-04 PUFF BY Health (Symbicort) 00:00: MOUTH 160-4.5 00 TWICE A MCG/ACT DAY inhaler SYMBICORT 2019-02 Yes INHALE 1 Univ ers 160-4.5 1-04 PUFF BY ity of mcg/actuati 00:00: MOUTH [place] on inhaler 00 TWICE A Medica l DAY Branch insulin 2019- Yes [id number] 5U inject Uni vers aspart 9-16 5-12 Units ity of U-100 00:00: under the [place] (NOVOLOG 00 skin 3 Medical FLEXPEN (three) Branch U-100 times INSULIN) daily 100 unit/mL before (3 mL) meals. injection E11.65 valsartan Yes 320mg Take 320 Uni vers 320 mg 8-21 mg by ity of tablet 00:00: mouth [place] 00 daily. Medical Branch metoprolol 2018- Yes Univers succinate 5-02 ity of XL 25 mg 24 00:00: [place] hr tablet 00 Medical Branch metFORMIN Yes TAKE 1 UT (Glucophage 3-19 TABLET BY [facility] ) 850 MG 00:00: MOUTH tablet 00 TWICE A DAY metFORMIN Yes TAKE 1 UT (Glucophage 3-19 TABLET BY [facility] ) 850 MG 00:00: MOUTH tablet 00 TWICE A DAY metFORMIN Yes TAKE 1 UT (Glucophage 3-19 TABLET BY [facility] ) 850 MG 00:00: MOUTH tablet 00 TWICE A DAY metFORMIN Yes TAKE 1 UT (Glucophage 3-19 TABLET BY Hea lth ) 850 MG 00:00: MOUTH tablet 00 TWICE A DAY aspirin 81 2019-0 Yes 81mg Take 81 mg U nivers mg EC 3-19 by mouth ity of tablet 00:00: daily. [address] isosorbide 2019-0 Yes 30mg Take 30 mg U T mononitrate 2-[address] [facility] ER (Imdur) 00:00: 30 MG 24 hr 00 tablet isosorbide 2019-0 Yes 30mg Take 30 mg U T mononitrate 2-[address] mouth[address] [facility] ER (Imdur) 00:00: 30 MG 24 hr 00 tablet isosorbide 2019-0 Yes 30mg Take 30 mg U T mononitrate 2-[address] mouth[address] [facility] ER (Imdur) 00:00: 30 MG 24 hr 00 tablet isosorbide 2019-0 Yes 30mg Take 30 mg U T mononitrate 2-[address] [facility] ER (Imdur) 00:00: 30 MG 24 hr 00 tablet isosorbide 2019- Yes 30mg Take 30 mg U nivers mononitrate 2-14 by mouth ity of 30 mg 24 hr 00:00: [place] tablet [address] [place] [address] Adult Low Adult Low No Adult Low [...] DAILY MOUTH ONCE DAILY doxycycline doxycycline No doxycyclin [place] hyclate 100 hyclate 100 e hyclate da mg capsule mg capsule 100 mg M edical TAKE 1 TAKE 1 capsule Group CAPSULE BY CAPSULE BY TAKE 1 MOUTH TWICE MOUTH TWICE CAPSULE BY DAILY FOR 7 DAILY FOR 7 MOUTH DAYS DAYS TWICE DAILY FOR 7 DAYS FeroSul 325 FeroSul 325 No FeroSul [place] mg (65 mg mg (65 mg 325 mg (65 da iron) iron) mg iron) Medical tablet one tablet one tablet one Group tablet a tablet a tablet a day day day hydrochloro hydrochloro No hydrochlor [place] thiazide 25 [...] release 24 release 24 release 24 hr TAKE 1 hr TAKE 1 hr TAKE 1 TABLET BY TABLET BY TABLET BY MOUTH ONCE MOUTH ONCE MOUTH ONCE DAILY DAILY DAILY montelukast montelukast No montelukas [place] 10 mg 10 mg t 10 mg da tablet TAKE tablet TAKE tablet Medical 1 TABLET BY 1 TABLET BY TAKE 1 Group MOUTH ONCE MOUTH ONCE TABLET BY DAILY DAILY MOUTH ONCE DAILY nitroglycer nitroglycer No nitroglyce [place] in 0.4 mg in 0.4 mg rin 0.4 mg da sublingual sublingual sublingual Medical tablet tablet tablet Group DISSOLVE DISSOLVE DISSOLVE ONE TABLET ONE TABLET ONE TABLET UNDER THE UNDER THE UNDER THE TONGUE TONGUE TONGUE EVERY 5 EVERY 5 EVERY 5 MINUTES MINUTES MINUTES NEEDED FOR NEEDED FOR NEEDED FOR CHEST PAIN. CHEST PAIN. CHEST DO NOT DO NOT PAIN. DO EXCEED A EXCEED A NOT EXCEED TOTAL OF 3 TOTAL OF 3 A TOTAL OF DOSES IN 15 DOSES IN 15 3 DOSES IN MINUTES MINUTES 15 MINUTES ranolazine ranolazine No ranolazine [place] ER 500 [...] ONCE SUBCUTANEO DAILY DAILY USLY ONCE DAILY valsartan valsartan No valsartan [place] 320 mg 320 mg 320 mg da tablet take tablet take tablet Medical one tablet one tablet take one Group a ay a ay tablet a ay Vascepa 1 Vascepa 1 No Vascepa 1 [place] gram gram gram da capsule capsule capsule Medica l TAKE 2 TAKE 2 TAKE 2 Group CAPSULES BY CAPSULES BY CAPSULES MOUTH TWICE MOUTH TWICE BY MOUTH DAILY DAILY TWICE DAILY Lisinopril Lisinopril Yes Uni vers TABS TABS ity of [place] Physici ans HumaLOG HumaLOG Yes Univers SOLN SOLN ity of [place] Physici ans Metoprolol Metoprolol Yes Uni vers Tartrate Tartrate ity of TABS TABS [place] Physici ans Singulair Singulair Yes Unive rs TABS TABS ity of [place] Physici ans Aspirin Aspirin Yes Univers TABS TABS ity of [place] Physici ans Mobic TABS Mobic TABS Yes Uni vers ity of [place] Physici ans Immunizations Ordered Filled Immunization Date Status Comments [facility] e Immunization Name Name influenza, influenza, 2020-11-21 Completed [facility] injectable, injectable, 00:00:00 Group quadrivalent quadrivalent COVID-19, mRNA, COVID-19, mRNA, 2020-04-11 Completed [facility] LNP-S, PF, 30 LNP-S, PF, 30 00:00:00 Group mcg/0.3 mL dose mcg/0.3 mL dose (Total [employer]) (Total [employer]) SARS-COV-2 COVID-19 2020-04-11 Completed Unive rsity of PFIZER VACCINE 00:00:00 [facility] Branch COVID-19, mRNA, COVID-19, mRNA, 2020-03-17 Completed [facility] LNP-S, PF, 30 LNP-S, PF, 30 00:00:00 Group mcg/0.3 mL dose mcg/0.3 mL dose (Total [employer]) (Mr. Number) SARS-COV-2 COVID-19 2020-03-17 Completed Unive rsity of PFIZER VACCINE 00:00:00 [facility] Influenza High Dose 2019-11-08 Completed Unive rsity of Quad 00:00:00 [facility] Pneumococcal 2013-04-21 Completed University o f Polysaccharide, 00:00:00 [facility] ical PPSV23 (PNEUMOVAX) [place] Influenza High Dose 2013-01-11 Completed Unive rsity of 00:00:00 [facility] Vital Signs Vital Name Observation Time Observation Value Comments Source BP Diastolic 2021-03-26 00:00:00 76 mm[Hg] [facility] Height 2021-03-26 00:00:00 68 [in_i] [facility] BMI (Body Mass 2021-03-26 00:00:00 32.9 kg/m2 [facility]) Group BP Systolic 2021-03-26 00:00:00 138 mm[Hg] [facility] Body Weight 2021-03-26 00:00:00 3457 [oz_av] [facility] BP Diastolic 2021-02-24 00:00:00 74 mm[Hg] [facility] Height 2021-02-24 00:00:00 68 [in_i] [facility] BMI (Body Mass 2021-02-24 00:00:00 32.5 kg/m2 [facility]) Group BP Systolic 2021-02-24 00:00:00 140 mm[Hg] [facility] Body Weight 2021-02-24 00:00:00 3417 [oz_av] [facility] BP Diastolic 2021-02-11 00:00:00 68 mm[Hg] [facility] Height 2021-02-11 00:00:00 68 [in_i] [facility] BMI (Body Mass 2021-02-11 00:00:00 32.2 kg/m2 [facility]) Group BP Systolic 2021-02-11 00:00:00 [...] HIP RIGHT 2 OR 3 2020-04-28 00:00:00 [facility] VIEWS 87514 Physicians Infectious agent detection 2019-05-31 00:00:00 A eVropa by nucleic acid Cardiac Catheterization [facility] Cardiopulmonary Bypass [facility] Pacemaker [facility] Total Replacement of [facility] Revision of Hip [facility] Repair of Hip [facility] History of Hip Surgery [facility] Left Physicians Plan of Care Planned Activity Planned Date Details Comments Source Future Appointment 2021-04-23 Homero Martinez 00:00:[address] [place] [address] Group [address]; , [place] [address] Encounters Start End Encounter Admission Attending Care Care Encounter Source Date/Time Date/Time Type Type Clinicians Facility Department ID 2021-01-28 Outpatient CRUZ-Q [facility] [id number] [place] 11:25:57 [facility] 2021-01-26 Outpatient [facility] [id number] [place] 14:53:20 [facility] 2020-12-20 Emergency [facility] [id number] Univers 05:23:42 [facility] 2020-07-28 Outpatient [facility] [id number] [place] 10:49:34 [facility] 2020-07-06 Outpatient CRUZ-Q [facility] [id number] [place] 01:03:22 [facility] 2020-06-30 Outpatient [facility] [id number] [place] 23:19:14 [facility] 2021-04-09 2021-04-10 Emergency E SERGOT, [id number] 15:12:00 05:42:00 PRISCILLA 2021-03-26 2021-03-26 Outpatient Maggie [facility] [id number] [place] 03:30:00 03:30:00 203 [facility] 2021-03-26 2021-03-26 Magdiel MMG [place] - [id number] [place] 00:00:00 00:00:00 Ella Gimenez Medical MD: [address] [address], [place] [address] , Ph. 2021-03-20 2021-03-20 Outpatient Zuniga_F MMG MMG [id number] [place] 12:57:00 12:57:00 128 [facility] 2021-03-20 2021-03-20 Outpatient Zuniga_F MMG MMG [id number] [place] 12:57:00 12:57:00 202 [facility] 2021-02-24 2021-02-24 Outpatient Zuniga_F MMG MMG [id number] [place] 04:29:00 04:29:00 104 [facility] 2021-02-24 2021-02-24 Magdiel MMG [place] - [id number] [place] 00:00:00 00:00:00 Ella Gimenez MD: [address] [place] [address], [place] [address] , Ph. 2021-02-11 2021-02-11 Outpatient Zuniga_F MMG MMG [id number] [place] 03:10:00 03:10:00 222 [facility] 2021-02-11 2021-02-11 Magdiel MMG [place] - [id number] [place] 00:00:00 00:00:00 Ella Gimenez MD: [address] [place] [address], [place] [address] , Ph. 2021-02-06 2021-02-06 Outpatient Zuniga_F MMG MMG [id number] [place] 02:19:00 02:19:00 217 Medical Group 2021-02-06 2021-02-06 [id number] [place] 02:19:00 02:19:00 221 Medical Group 2021-01-28 2021-01-28 Office Tyrone DAILEY [id number] [place] 10:45:00 11:26:06 Visit PHYSICIAN edda [id number] [facility] S [id number] ORTHOPEDI [id number] CS - NILE 1 2020-11-16 2020-11-16 [facility] [id number] Univers 00:00:00 00:00:00 Cristiano [place] [id number] i ty [facility] [id number] [place] Profess[place] [phone] Mi dical [address] 2020-11-11 2020-11-11 [facility] [id number] Univers 15:00:00 15:00:00 CRISTIANO [id number] [facility] 2020-11-11 2020-11-11 [facility] [id number] Univers 15:00:00 15:00:00 CRISTIANO [facility] 2020-11-07 2020-11-07 Outpatient R AUNG [facility] [id number] Univers 10:00:00 10:00:00 SHAHAB [id number] [facility] 2020-11-07 2020-11-07 Outpatient R AUNG [facility] [id number] Univers 10:00:00 10:00:00 SHAHAB [facility] 2020-08-19 2020-08-19 Outpatient R [facility] [id number] Univers 10:45:00 10:45:00 [id number] [facility] 2020-08-19 2020-08-19 Outpatient R KORY [facility] [id number] Univers 10:45:00 10:45:00 MEL [facility] 2020-07-30 2020-07-30 Office ASIM Howell [id number] 10:30:47 11:36:32 Visit Willard PHYSICIAN [id number] S [id number] ORTHOPEDI [id number] JUDY DOWD 1 2020-07-30 2020-07-30 Office ASIM Howell [id number] [place] 10:30:47 11:36:32 Visit Willard PHYSICIAN [id number] Health S [id number] ORTHOPEDI [id number] JUDY DOWD 1 2020-07-22 2020-07-22 Refjasper Horan [facility] [id number] 00:00:00 00:00:00 [facility] [id number] Edward Dickson [id number] Professio [phone] nal 044 Office Building One 2020-07-22 2020-07-22 Telephone Jamar [facility] [id number] 00:00:00 00:00:00 Otislaura [place] [id number] [place] [id number] Professio [phone] nal 220 Building 2020-07-17 2020-07-17 Logistics Manager 2, Adc Lab [facility] [id number] 09:10:48 09:25:48 Visit [place] [id number] [place] [id number] Professio [phone] [facility] 353 Building 2020-07-17 2020-07-17 Outpatient R [facility] [id number] Univers 09:00:00 09:00:00 [id number] [facility] 2020-07-17 2020-07-17 Outpatient R [facility] [id number] Univers 09:00:00 09:00:00 [facility] 2020-07-08 2020-07-08 Office Jamar [facility] [id number] 15:22:46 16:10:06 Visit Cristiano Forman [id number] [place] [id number] Dorita [phone] nal 220 Building 2020-07-08 2020-07-08 Outpatient R JAMAR [facility] [id number] Univers 15:30:00 15:30:00 CRISTIANO [id number] [facility] 2020-07-08 2020-07-08 Outpatient Seda GUY [facility] [id number] Univers 15:30:00 15:30:00 CRISTIANO [facility] 2020-07-02 2020-07-02 Office Lynda, UTP [id number] 13:39:45 14:58:22 Visit Willard PHYSICIAN [id number] S [id number] ORTHOPEDI [id number] CS - NILE 1 2020-07-02 2020-07-02 Office Lynda, ASIM [id number] [place] 13:39:45 14:58:22 Visit [place]ard PHYSICIAN [id number] Health S [id number] ORTHOPEDI [id number] CS - NILE 1 2020-07-02 2020-07-02 [facility]patient [facility] [id number] Univers 10:30:00 10:30:00 LEXA [id number] [facility] 2020-07-02 2020-07-02 Outpatient R JANETH [facility] [id number] Univers 10:30:00 10:30:00 [facility] 2020-06-05 2020-06-05 Outpatient CRUZ-Martha [facility] [id number] Memoria 05:18:00 18:17:00 UINTPAPI, l DANIEL Dowd Memoria l 2020-05-19 2020-05-[address] [facility] [id number] MH 08:00:00 18:00:00 [place], Ortho pe [facility] 2020-05-19 2020-05-19 EXT MH OP Cruz-Martha EXT MSRDP [id number] [place] 00:00:00 00:00:00 uintana, LOCATION [id number] [facility] [id number] [id number] 2020-05-07 2020-05-07 Outpatient Seda H[facility]AN [facility] [id number] Univers 10:00:00 10:00:00 SHAHAB [id number] [facility] 2020-05-07 2020-05-07 Outpatient Seda HORAN [facility] [id number] Univers 10:00:00 10:00:00 SHAHAB [facility] 2020-04-30 2020-04-30 Appointmen [facility]ONE [facility] Orthopedics [id number] Univers 13:00:00 13:00:00 t; MAXINE, - [facility] ALLIE SANCHEZ M.D. [facility] radha Sharma M.D. 2020-04-11 2020-04-11 Outpatient Seda MEI [facility] [id number] Univers 10:30:00 10:30:00 KATINA [id number] [facility] 2020-04-11 2020-04-11 Outpatient Seda MEI [facility] [id number] Univers 10:30:00 10:30:00 KATINA [facility] 2020-04-08 2020-04-08 Outpatient Seda MEI [facility] [id number] Univers 13:50:00 13:50:00 KATINA [id number] [facility] 2020-04-08 2020-04-08 Outpatient Seda MEI [facility] [id number] Univers 13:50:00 13:50:00 KATINA [facility] 2020-03-17 2020-03-17 Outpatient BECKA [facility] [id number] Univers 12:00:00 12:00:00 CHADD [id number] [facility] 2020-03-17 2020-03-17 Outpatient Seda JOVEL [facility] [id number] Univers 12:00:00 12:00:00 CHADD [facility] 2020-03-04 2020-03-04 Outpatient Seda GUY [facility] [id number] Univers 10:00:00 10:00:00 CRISTIANO [id number] [facility] 2020-03-04 2020-03-04 Outpatient R JAMAR [facility] [id number] Univers 10:00:00 10:00:00 CRISTIANO [facility] 2020-02-27 2020-02-27 Outpatient R [facility] [id number] Univers 09:45:00 09:45:00 [id number] [facility] 2020-02-27 2020-02-27 Outpatient R AUNG [facility] [id number] Univers 09:45:00 09:45:00 SHAHAB [facility] 2020-02-06 2020-02-06 Outpatient R JAMAR [facility] [id number] Univers 09:30:00 09:30:00 CRISTIANO [id number] [facility] 2020-02-06 2020-02-06 Outpatient R JAMAR [facility] [id number] Univers 09:30:00 09:30:00 CRISTIANO [facility] 2020-02-05 2020-02-05 Outpatient R AUNG [facility] [id number] Univers 10:00:00 10:00:00 SHAHAB [id number] [facility] 2020-02-05 2020-02-05 Outpatient R AUNG [facility] [id number] Univers 10:00:00 10:00:00 SHAHAB [facility] 2020-01-23 2020-01-23 Appointmen TYRONE DAILEY [facility] [id number] Univers 13:30:00 13:30:00 tcliff MOODY M.D. [place], Physic i DAVID, ans M.D. 2020-01-16 2020-01-16 Outpatient R AUNG [facility] [id number] Univers 09:00:00 09:00:00 SHAHAB [id number] [facility] 2020-01-16 2020-01-16 Outpatient R AUNG [facility] [id number] Univers 09:00:00 09:00:00 SHAHAB [facility] 2019-12-28 2019-12-28 Outpatient R [facility] [id number] Univers [facility]:00[facility]00 [facility] 2019-12-28 Outpatient R [facility] [id number] Univers 17:00:00 17:00:00 ity [facility] 2019-11-07 2019-11-07 Outpatient R JAMAR, [facility] [id number] Univers 11:00:00 11:00:00 [facility] [id number] [facility] 2019-11-07 Outpatient R JAMAR [facility] [id number] Univers 11:00:00 11:00:00 OTISMOORHEAD [facility] 2019-09-27 2019-09-27 [place] [id number] Univers 10:00:00 10:00:00 [facility] 2019-07-03 2019-07-03 Outpatient R JAMAR [facility] [id number] Univers 11:30:00 11:30:00 [facility] [id number] [facility] 2019-07-03 2019-07-03 Outpatient R GUY [facility] [id number] Univers 11:30:00 11:30:00 [facility] 2019-06-26 2019-06-26 Outpatient R JAMAR [facility] [id number] Univers 16:00:00 16:00:00 [facility] 2019-06-05 2019-06-05 Outpatient KHALIDA, [facility] [id number] Access 11:00:00 11:00:00 [facility] 2019-06-05 2019-06-05 Outpatient KHALIDA, [facility] [id number] Access 11:00:00 11:00:00 [facility] [id number] [facility] [id number] 2019-05-31 2019-05-31 Outpatient WILFRIDO, [facility] [id number] Access 00:00:00 00:00:00 [facility] 2019-05-31 2019-05-31 Outpatient WILFRIDO [facility] [id number] Access 00:00:00 00:00:00 ARMANDO Fink [id number] [facility] [id number] [facility] [id number] 2019-04-03 2019-04-03 [facility] [id number] Univers 11:30:00 11:30:00 t; KRISTI ARZOLA M.D. - [facility] itsascha [facility] [place] Physici ans 2019-03-26 2019-03-26 [facility] [id number] Univers 10:30:00 10:30:00 t; KRISTI ARZOLA M.D. ity [place] Physici ans 2019-01-09 2019-01-09 [facility] [id number] Univers 11:15:00 11:15:00 t; KRISTI ARZOLA M.D. [facility] cliff [facility] [place] Physici ans 2018-03-30 2018-03-30 [facility] [id number] Univers 10:15:00 10:15:00 t; KRISTI ARZOLA M.D. [place] KRISTI, Orthopedics Yamel fink M.D. Physici ans 2018-01-09 2018-01-09 [facility] [id number] Univers 10:45:00 10:45:00 t; KRISTI ARZOLA M.D. ity [place] Physici ans 2017-12-29 2017-12-29 [facility] [id number] Univers 11:15:00 11:15:00 t; KRISTI ARZOLA M.D. [facility] cliff [facility] [place] Physici ans 2017-11-16 2017-11-16 [facility] [id number] Univers 11:00:00 11:00:00 t; KRISTI ARZOLA M.D. [place] KRISTI, Orthopedics Yamel s [place] Physici ans 2017-10-12 2017-10-12 [facility] [id number] Univers 11:00:00 11:00:00 t; KRISTI ARZOLA M.D. ity [facility].D. Physici ans 2017-09-14 2017-09-14 [facility] DAR[facility], [facility] UTP [id number] Univers 11:00:00 11:00:00 t; KRISTI ARZOLA M.D. [facility].D. Physici ans 2017-08-23 2017-08-23 [facility] [id number] Univers 09:00:00 09:00:00 t; KRISTI ARZOLA M.D. [facility].D. Physici ans 2017-07-13 2017-07-13 [facility] U[facility] [id number] Univers 11:00:00 11:00:00 t; KRISTI ARZOLA M.D. ity [facility].Oracio. Physici ans 2017-03-30 2017-03-30 [facility] [id number] 18:02:00 18:02:00 [facility] 2017-02-28 2017-02-28 [facility] UTP [id number] Univers 11:00:00 11:00:00 t; KRISTI [facility]. [facility] 2017-01-19 2017-01-19 [facility] [id number] Univers 11:00:00 11:00:00 t; KRISTI [facility]OL[facility]. [facility] 2017-01-06 2017-01-06 [facility] UTP [id number] Univers 10:45:00 10:45:00 t; KRISTI ARZOLA M.D. ity [facility].[place] Physici ans 2016-12-14 2016-12-14 [facility] [id number] Univers 10:45:00 10:45:00 t; KRISTI ARZOLA M.D. ity [facility].[place] Physici ans 2016-11-25 2016-11-25 [facility] UTP [id number] Univers 11:15:00 11:15:00 t; KRISTI [facility]OLA [facility].D. [facility] 2016-11-16 2016-11-16 [facility] UTP [id number] Univers 10:45:00 10:45:00 t; KRISTI ARZOLA M.D. lenasascha [facility] 2016-05-27 2016-05-27 [facility] UTP [id number] Univers 10:45:00 10:45:00 t; KRISTI ARZOLA M.D. lenasascha [facility] ans 2015-11-27 2015-11-27 [facility] DARIUSZ [facility] UTP [id number] Univers 10:45:00 10:45:00 t; KRISTI ARZOLA M.D. lenasascha [facility] Physici ans Results Test Description Test Time Test Comments Results Result Comments Source CBC W Auto Differential panel - Blood 2021-03-16 02:36:00 Test Item Value Reference Range Interpretation Comme nts white blood count (test code = white blood count) 10.4 K/uL 4.0- 12.3 red blood count (test code = red blood count) 4.77 M/uL 3.80-5.8 0 hemoglobin (test code = hemoglobin) 13.9 g/dL 11.7-17.2 hematocrit (test code = hematocrit) 43.1 % 35.0-51.0 MCV [Entitic volume] (test code = 74680-8) 90.4 fL 83.0-100.0 mean corpuscular hemoglobin (test code = mean corpuscular 29.1 pg 26.8-33.4 hemoglobin) mean corpuscular HGB conc (test code = mean corpuscular HGB 32.3 g/dL 30.0-35.0 conc) red cell distribution width (test code = red cell 14.7 % 12.0 -14.0 H distribution width) platelet count (test code = platelet count) 310 K/uL 175-450 mean platelet volume (test code = mean platelet volume) 9.8 fL 9.4-12.6 Segmented neutrophils/100 leukocytes in Blood (test code = 63.5 % 44.7-82.4 13321-2) Immature granulocytes [#/volume] in Blood (test code = 0.03 K/uL 0.00-0.03 55136-4) lymphocyte% (test code = lymphocyte%) 24.2 % 10.0-50.0 mono % (test code = mono %) 8.2 % 3.9-13.4 eos % (test code = eos %) 3.1 % 0.0-6.4 Basophils/100 leukocytes in Unspecified specimen (test code 0.7 % 0.2-1.2 = 52416-2) Band form neutrophils [#/volume] in Blood (test code = 6.60 K/uL 1.78-5.38 H 95946-7) Lymphocytes [#/volume] in Unspecified specimen by Automated 2.51 K/uL 1.32-3.57 count (test code = 38660-3) mono # (test code = mono #) 0.85 K/uL 0.30-0.82 H eos # (test code = eos #) 0.32 K/uL 0.04-0.54 basophil # (test code = basophil #) 0.07 K/uL 0.01-0.08 NRBC% (test code = NRBC%) 0 /100 WBC 0-0.2 NRBC# (test code = NRBC#) 0 K/uL [facility] 2000 [facility] - Serum or Plasma 2021-03-16 02:36:00 Test Item Value Reference Range Interpretation Comments glucose (test code = glucose) 113 mg/dL 82-115 Urea nitrogen [Mass/volume] in 27 mg/dL 8-23 H Serum or Plasma (test code = 3094-0) osmolality calculated,serum (test 282 mOsm/kg 280-300 code = osmolality calculated,serum) creatinine (test code = 1.40 mg/dL 0.70-1.20 H creatinine) glomerular filtration rate (test 49.27 L code = glomerular filtration rate) Urea nitrogen/Creatinine [Mass 19.3 12.0-20.0 Ratio] in Serum or Plasma (test code = 3097-3) sodium level (test code = sodium 138 mmol/L 135-145 level) Potassium [Moles/volume] in Body 4.5 mmol/L 3.5-5.2 fluid (test code = 2821-7) chloride level (test code = 100 mmol/L 98-108 chloride level) CO2 (test code = CO2) 23 mmol/L 21-32 anion gap (test code = anion gap) 19.5 mEq/L 12.0-20.0 calcium level (test code = 9.5 mg/dL 8.8-10.2 calcium level) total protein (test code = total 7.3 g/dL 6.6-8.7 protein) albumin (test code = albumin) 3.9 g/dL 3.5-5.2 globulin (test code = globulin) 3.4 g/dL 1.5-4.5 A/G ratio (test code = A/G ratio) 1.1 >1.0 bilirubin,total (test code = 0.3 mg/dL 0.0-1.2 bilirubin,total) AST/SGOT (test code = AST/SGOT) 36 U/L 15-40 Alanine aminotransferase 33 U/L 0-41 [Enzymatic activity/volume] in Serum or Plasma (test code = 1742-6) Alkaline phosphatase [Enzymatic 80 U/L 40-130 activity/volume] in Serum or Plasma (test code = 6768-6) [facility] panel, method unspecified - [id number] 00:00:00NeutrophilsBandLymphocyteAtypical LymphMonocyteEosinophilBasophilAbs Neutrophil Count (Man)Abs LymphCount (Man)Abs Monocyte Count (Man)Abs Eosinophil Count (Man)Abs Basophil Count (Man)Platelet EstimatePlatelet MorphologyHypochromasiaAnisocytosisMacrocytosisTarget CellsToxic GranulationHypersegmentedPolysToxic VacuolationMatagoMerit Health Woman's HospitalPT/INR 2021-03-16 00:00:00 Test Item Value Reference Range Interpretation Comments prothrombin time (test code = 10.5 seconds 10.3-12.3 prothrombin time) INR in Blood by Coagulation 0.96 assay (test code = 36085-6) [facility]ial thromboplastin [id number] 00:00:00 Test Item Value Reference Range Interpretation Comments INR in Blood by Coagulation 25.0 seconds 22.5-37.0 assay (test code = 66495-4) [facility][U] XRAY HIPS BILATERAL MIN 2 VWS AND AP PELVIS [id number] 2020-04-30 13:08:00Images acquired, not reported on this accession number. [facility][U] XRAY HIPS BILATERAL MIN 2 VWS AND AP PELVIS [id number] 09:56:00Images acquired, not reported on this accession number. [facility] PhysiciansPanel Description: SARS-CoV-2, [id number] 09:48:00 Test Item Value Reference Range Interpretation Comments SARS-CoV-2, RICHARD Not Detected Not Detected Testing was performed (test code = using the avril (R) 49514-9) SARS-CoV-2 test .This test was developed a nd its performance characteristics determinedby [employer]. T his test has not been FD A cleared orapproved. Thi s test has been authorized by FDA under an Emerge ncy UseAuthorizatio n (EUA). This test is on ly authorized for the duration oftime the declaration teresa t circumstances e xist justifying theauthorizatio n of the emergency use o f in vitro diagnostic test s fordetection of SARS-CoV-2 virus and/or di agnosis of COVID-19 infect ionunder section 564(b)( 1) of the Act, 21 U.S.C. 360bbb-3(b)(1), unlessthe authorization i s terminated or r evoked sooner.

Performed by:
[facility] [place] ([facility])

[employer] [facility][U] XRAY SPINE LUMBOSACRAL MIN 4 VWS [id number] 11:15:00Images acquired, not reported on this accession number.[facility] [U] XRAY SACRUM AND COCCYX 2 VWS, MIN. [id number] 11:15:00Images acquired, not reported on this accession number.[facility] Comprehensive Metabolic [id number] 18:51:00 Test Item Value Reference Range Interpretation [...] the National Kidney Foundation,http ://nkd ep.nih.gov Lipid [id number] 18:51:00 Test Item Value Reference Range Interpretation Comments Cholesterol (test 210 mg/dL 0-200 H code = CHOL) Triglycerides (test 185 mg/dL 9-200 N code = TRIG) HDL (test code = 45 mg/dL 40-60 N HDL) Chol/HDL (test code 4.7 Ratio 0.0-5.0 N = CHOLPHDL) LDL, Calculated 128 mg/dL 0-130 N (NOTE)RISK O F HEART (test code = LDLC) DISEASEPu blished by [place] Heart AssociationAnal yte Optim al Boderline Increased RiskC HOL <200 200-239 >240TRI G <150 150-199 >200HDL Male: >60 <40HDL Female: >60 <50 LDL < 100 130-15 9 >160 LDL NEAR OPTIMAL IS 100- 129 VLDL (test code = 37 mg/dL 5-40 N VLDL) LDL/HDL (test code = 3 LDLPHDL) CBC with [id number] 18:23:00 Test Item Value Reference Range Interpretation [...] code = ALYMPH) 2.0 K/cumm 0.5-4.6 N [place] Abs (test code = AMONO) 0.5 K/cumm 0.0-1.2 N Eos Abs (test code = AEOS) 0.31 K/cumm 0.00-0.74 N Baso Abs (test code = ABASO) 0.1 K/cumm 0.00-0.21 N
[2021-04-20 23:00] LABS: Absolute Lymphocytes (CBC) 1.9 K/uL (0.7-4.9); Hematocrit 28.1 % (39.6-49.0); Lymphocytes % 15.6 % (15.3-44.8); RBC Red Blood Cell Count 3.18 M/uL (4.33-5.43)
[2021-04-20] MEDS ORDERED: NA CHLORIDE 0.9% 250 ML ONE ×2 (23:03→23:48)
[2021-04-20 23:07] LABS: Protime INR 1.2
[2021-04-20 23:40] LABS: Albumin 2.8 g/dL (3.4-5.0); Bilirubin Direct 0.5 mg/dL (0-0.2); Bilirubin Total 0.8 mg/dL (0.2-1.0); Magnesium 2.7 mg/dL (1.8-2.4); Protein, Total 7.7 g/dL (6.4-8.2)
[2021-04-20 23:43] LABS: Troponin High Sensitivity 3373.1 pg/mL (<58.9)
[2021-04-20] MEDS ORDERED: INSULIN -REGULAR HUMAN 50 UNIT/0.5 ML ML ONE (23:59)
[2021-04-21] MEDS ORDERED: SOD POLYSTYREN SUL 15 GM/60 ML UCUP ONE ×2 (00:03)
[2021-04-21] MEDS ORDERED: NA CHLORIDE 0.9% 100 ML IV ONE ×2 (00:03→01:21)
[2021-04-21] MEDS ORDERED: CALCIUM GLUCONATE 1 GM IVPB 1 GM/50 ML BAG IV ONE ×2 (00:04→10:54)
[2021-04-21 00:05] LABS: SARS-COV-2 RT PCR NEGATIVE (NEGATIVE)
--- NOTE | 2021-04-21 00:22 | ER ---
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 Patient al4 states the c/p and SOB have gotten better since arrival. 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 Coronavirus screen: Vaccine status: Patient reports receiving the 2nd dose of the covid vaccine. [employer]. Ebola Screen: No symptoms or risks identified at this time. Initial Sepsis Screen: Does the patient meet any 2 criteria?. Initial Sepsis Screen: Does the patient meet any 2 criteria? Systolic BP < 90 mmHg. Mean Arterial Pressure (MAP) < 65. HR > 90 bpm. Yes Does the patient have a suspected source of infection? No. Patient's initial sepsis screen is negative. If YES to both, name of provider notified: Asif Madden MD. Risk Assessment: Do you want to hurt yourself or someone else? Patient reports no desire to harm self or others. Onset of symptoms was April 20, 2021. 22:38 Method Of Arrival: Wheelchair al4 22:38 Acuity: DODIE 3 al4 Triage Assessment: 22:42 General: Appears in no apparent distress. uncomfortable, Behavior is calm, cooperative. al4 Pain: Complains of pain in chest Pain currently is 4 out of 10 on a pain scale. Neuro: Level of Consciousness is awake, alert, obeys commands, Oriented to person, place, time, situation. Cardiovascular: Capillary refill < 3 seconds Patient's skin is warm and dry. Chest pain began 30 minutes prior to arrival. Respiratory: Airway is patent Respiratory effort is unlabored, Respiratory pattern is regular. Musculoskeletal: Range of motion: intact in all extremities. Historical: - Allergies: 22:42 Victoza 2-Raffi; al4 - PMHx: 22:42 Congestive heart failure; Diabetes - IDDM; Hypercholesterolemia; Hypertension; al4 peripheral vascular disease; - Immunization history:: Adult Immunizations up to date, Client reports receiving the 2nd dose of the Covid vaccine. - Social history:: Smoking status: Patient denies any tobacco usage or history of. Patient/guardian denies using alcohol. - Family history:: not pertinent. - Hospitalizations: : The patient was recently seen at [facility]. Screenin:56 Abuse screen: Denies threats or abuse. Nutritional screening: No deficits noted. al4 Tuberculosis screening: No symptoms or risk factors identified. Fall Risk No fall in past 12 months (0 pts). IV access (20 points). Ambulatory Aid- None/Bed Rest/Nurse Assist (0 pts). Gait- Normal/Bed Rest/Wheelchair (0 pts) Mental Status- Oriented to own ability (0 pts). Total Canales Fall Scale indicates No Risk (0-24 pts). Assessment: 23:39 Reassessment: Physician does not think patient is septic. al4 23:40 Reassessment: patient aware of the need for urine. urinal bedside. ERP states there is al4 no reason to use a catheter, and to let the patient give a urine sample when he is ready. 03 00:00 General: Appears in no apparent distress. uncomfortable, Behavior is calm, cooperative. al4 Pain: Complains of pain in chest Pain does not radiate. Pain began 30 min ago. Neuro: Level of Consciousness is awake, alert, obeys commands, Oriented to person, place, time, situation. Cardiovascular: Capillary refill < 3 seconds Patient's skin is warm and dry. Edema is 2+ to left ankle, left foot, right ankle and right foot. Respiratory: Airway is patent Respiratory effort is unlabored, Respiratory pattern is regular. Derm: diabetic ulcer on right foot bandaged prior to arrival. Musculoskeletal: Range of motion: intact in all extremities. 00:21 Reassessment: ERP started an ultrasound IV 18G in the right AC. al4 01:00 Reassessment: Patient is alert, oriented x 3, equal unlabored respirations, skin al4 warm/dry/pink. 02:00 Reassessment: Patient is alert, oriented x 3, equal unlabored respirations, skin al4 warm/dry/pink. 03:00 Reassessment: Patient appears in no apparent distress at this time. Patient states al4 feeling better. 04:00 Reassessment: Patient appears in no apparent distress at this time. Patient denies pain al4 at this time. 05:00 Reassessment: Patient is alert, oriented x 3, equal unlabored respirations, skin al4 warm/dry/pink. Patient denies pain at this time. 06:45 Reassessment: Patient is alert, oriented x 3, equal unlabored respirations, skin al4 warm/dry/pink. Vital Signs: 04/20 22:38 BP 77 / 52; Pulse 95; Resp 18; Temp 97.8; Pulse Ox 100% on R/A; Weight 95.25 kg; Height al4 5 ft. 8 in. (172.72 cm); Pain 4/10; 23:37 BP 103 / 45; Pulse 97; Resp 17 S; Pulse Ox 100% on R/A; al4 0301 00:30 BP 107 / 47; Pulse 78; Resp 18 S; Pulse Ox 100% on R/A; al4 01:00 BP 109 / 57; Pulse 81; Resp 18 S; Pulse Ox 100% on R/A; al4 01:03 BP 107 / 47; rn 01:30 BP 111 / 55; Pulse 81; Resp 20 S; Pulse Ox 99% on R/A; al4 02:00 BP 110 / 59; Pulse 82; Resp 18 S; Pulse Ox 100% on R/A; al4 02:30 BP 108 / 50; Pulse 79; Resp 18; Pulse Ox 100% on R/A; al4 03:00 BP 109 / 50; Pulse 79; Resp 18; Pulse Ox 100% on R/A; al4 04:00 BP 115 / 45; Pulse 88; Resp 16; Pulse Ox 100% ; Pain 0/10; al4 05:00 BP 113 / 65; Pulse 89; Resp 22; Pulse Ox 100% on R/A; al4 06:00 BP 101 / 51; Pulse 95; Resp 24; Pulse Ox 100% ; Pain 0/10; al4 04/20 22:38 Body Mass Index 31.93 (95.25 kg, 172.72 cm) al4 ED Course: 04/20 22:23 Patient arrived in ED. ja2 22:29 Asif Madden MD is Attending Physician. rn 22:37 Esdras Guo is Primary Nurse. al4 22:42 Triage completed. al4 22:48 XRAY CXR (1 view) In Process Unspecified. EDMS 22:55 Arm band placed on. EKG completed in triage. Results shown to . al4 22:56 Patient has correct armband on for positive identification. Placed in gown. Bed in low al4 position. Side rails up X2. clinical research monitor on. Pulse ox on. NIBP on. 22:56 COVID-19/FLU A+B (Document "Date of Onset" if Symptomatic) Sent. st1 22:56 Procalcitonin Sent. st1 22:56 Lactate Sent. st1 22:57 Ptt, Activated Sent. st1 22:57 PT-INR Sent. st1 22:57 NT PRO-BNP Sent. st1 22:57 Magnesium Sent. st1 22:57 Lipase Sent. st1 22:57 Hepatic Function Sent. st1 22:57 CBC with Diff Sent. st1 22:57 Blood Culture Adult (2) Sent. st1 22:57 BMP Sent. st1 22:57 Troponin High Sensitivity Sent. st1 03 00:21 Prince Sepulveda MD is Hospitalizing Provider. rn 00:58 Patient maintains SpO2 saturation greater than 95% on room air. al4 01:57 Parisi cath inserted, using sterile technique, by collar fuser, balloon inflated, to gravity al4 drainage, urine specimen collected. 03:00 No provider procedures requiring assistance completed. Inserted saline lock: 18 gauge al4 in right antecubital area, using aseptic technique. ,using aseptic technique. by MD Chano. 03:00 Patient admitted, IV remains in place. al4 Administered Medications: 04/20 23:05 Drug: NS 0.9% 250 ml Route: IV; Rate: bolus; Site: right antecubital; al4 23:30 Follow up: Response: No adverse reaction; IV Status: Completed infusion al4 03 00:31 Drug: Calcium Gluconate 1 grams Route: IVPB; Infused Over: 60 mins; Site: right al4 antecubital; 01:40 Follow up: Response: No adverse reaction; IV Status: Completed infusion al4 00:32 Drug: Insulin Regular Human 5 units {Co-Signature: st1 (Elif Arellano RN).} Route: al4 IVP; Site: right antecubital; 01:30 Follow up: Response: No adverse reaction al4 00:32 Not Given (Physician Discretion): D50W 25 ml IVP once; (0.5 amp) al4 00:33 Drug: NS 0.9% 250 ml Route: IV; Rate: bolus; Site: right antecubital; al4 01:00 Follow up: Response: No adverse reaction; IV Status: Completed infusion al4 00:33 Drug: Sodium Bicarbonate 1 amp Route: IVP; Site: right antecubital; al4 01:30 Follow up: Response: No adverse reaction al4 00:33 Drug: Kayexalate (polystyrene) 30 grams Route: PO; al4 01:30 Follow up: Response: No adverse reaction al4 01:15 Not Given (Physician Discretion): Ancef (cefazolin) 1 grams IVPB once al4 01:30 Drug: Lasix (furosemide) 40 mg Route: IVP; Site: right antecubital; al4 02:30 Follow up: Response: No adverse reaction al4 01:30 Drug: Ancef (cefazolin) 1 grams Route: IVPB; Site: right antecubital; al4 02:00 Follow up: Response: No adverse reaction; IV Status: Completed infusion al4 01:47 Drug: Lovenox (enoxaparin) 1 mg/kg Route: Sub-Q; Site: left lower abdomen; al4 02:30 Follow up: Response: No adverse reaction al4 Outcome: 00:22 Decision to Hospitalize by Provider. rn 03:00 Admitted to ER Hold. Please see [facility] for further documentation. al4 03:00 Condition: stable 03:00 Instructed on the need for admit. 09:58 Patient left the ED. iw Signatures: Dispatcher [employer] Verónica Seth RN RN iw Nieto, Roman, MD MD rn Alexander, Jessica ja2 Ledbetter, Alexis al4 Elif Arellano RN RN st1 Elif Arellano RN st1 Corrections: (The following items were deleted from the chart) 00:32 00:32 D50W 25 ml IVP in right antecubital al4 al4 02:42 00:00 Cardiovascular: Capillary refill < 3 seconds Patient's skin is warm and dry. al4 al4 03:34 04/20 23:39 Reassessment: Physician does not think patient is septic al4 al4 03/01 04:14 04/20 23:39 Reassessment: Physician does not think patient is septic al4 al4 04/21 04:17 00:00 Derm: diabetic ulcer on right foot bandaged al4 al4 06:45 01:00 BP 109 / 57; Pulse 81bpm; Resp 18bpm; Spontaneous; Pulse Ox 100% RA; al4 al4 06:45 01:30 BP 111 / 55; Pulse 81bpm; Resp 16bpm; Spontaneous; Pulse Ox 99% RA; al4 al4 :45 02:00 BP 110 / 59; Pulse 82bpm; Resp 16bpm; Spontaneous; Pulse Ox 100% RA; al4 al4 06:45 02:30 BP 108 / 50; Pulse 79bpm; Resp 16bpm; Pulse Ox 100% RA; al4 al4 :45 03:00 BP 109 / 50; Pulse 79bpm; Resp 16bpm; Spontaneous; Pulse Ox 100% RA; al4 al4 06:45 04:00 BP 115 / 45; Pulse 88bpm; Resp 18bpm; Pulse Ox 100%; Pain 0/10; al4 al4 06:45 05:00 BP 113 / 65; Pulse 89bpm; Resp 18bpm; Spontaneous; Pulse Ox 100% RA; al4 al4 06:49 04:00 BP 115 / 45; Pulse 88bpm; Resp 20bpm; Pulse Ox 100%; Pain 0/10; al4 al4 06:55 06:54 No provider procedures requiring assistance completed. al4 al4 06: 06:54 Inserted saline lock: 18 gauge in right antecubital area, using aseptic al4 technique. ,using aseptic technique. by MD Chano al4
--- NOTE | 2021-04-21 00:23 | EDPHYS ---
Physician Documentation [facility] Name: Stepan Pringle Age: 75 yrs Sex: Male : 1945 Arrival Date: 04/20/2021 Time: 22:23 Bed 5 Private MD: ED Physician Asif Madden HPI: 04/20 22:45 This 75 yrs old Male presents to ER via Wheelchair with complaints of Chest rn Pain, Shortness Of Breath. 22:46 The patient has shortness of breath at rest, with light activity. Onset: The rn symptoms/episode began/occurred at an unknown time. Duration: The symptoms are intermittent. The patient's shortness of breath is aggravated by light activity, supine position, talking. Associated signs and symptoms: Pertinent positives: chest pain, non-productive cough, Pertinent negatives: fever, hemoptysis. 22:50 Pt reports recently admitted for similar symptoms, told "heart problem" and pneumonia, rn states still taking abx for pneumonia, was doing better, then worse over last couple of days. No fever. Worse with supine position.. Historical: - Allergies: 22:42 Victoza 2-Raffi; al4 - PMHx: 22:42 Congestive heart failure; Diabetes - IDDM; Hypercholesterolemia; Hypertension; al4 peripheral vascular disease; - Immunization history:: Adult Immunizations up to date, Client reports receiving the 2nd dose of the Covid vaccine. - Social history:: Smoking status: Patient denies any tobacco usage or history of. Patient/guardian denies using alcohol. - Family history:: not pertinent. - Hospitalizations: : The patient was recently seen at [facility]. ROS: 22:50 Constitutional: Negative for fever, chills, and weight loss, Eyes: Negative for injury, rn pain, redness, and discharge, Neck: Negative for injury, pain, and swelling, Cardiovascular: + chest pain and edema Respiratory: + cough and sob. Abdomen/GI: Negative for abdominal pain, nausea, vomiting, diarrhea, and constipation, : Negative for injury, bleeding, discharge, and swelling, MS/Extremity: Negative for injury and deformity, Skin: Negative for injury, rash, and discoloration, Neuro: + generalized weakness Exam: 22:50 Constitutional: This is a well developed, well nourished patient who is awake, alert, rn and in no acute distress. Head/Face: Normocephalic, atraumatic. Eyes: Periorbital areas with no swelling, redness, or edema. Cardiovascular: Irregular rhythm, regular rate Respiratory: + mild tachypnea, no retractions Abdomen/GI: soft, non-tender Skin: Warm, dry, + right dorsal foot ulceration without purulence, no surroundign warmth or streaking MS/ Extremity: + some cyanosis to right foot (known PAD s/p vascular procedure recently). Neuro: Awake and alert, GCS 15 Vital Signs: 22:38 BP 77 / 52; Pulse 95; Resp 18; Temp 97.8; Pulse Ox 100% on R/A; Weight 95.25 kg; Height al4 5 ft. 8 in. (172.72 cm); Pain 4/10; 23:37 BP 103 / 45; Pulse 97; Resp 17 S; Pulse Ox 100% on R/A; al4 03/01 00:30 BP 107 / 47; Pulse 78; Resp 18 S; Pulse Ox 100% on R/A; al4 01:00 BP 109 / 57; Pulse 81; Resp 18 S; Pulse Ox 100% on R/A; al4 01:03 BP 107 / 47; rn 01:30 BP 111 / 55; Pulse 81; Resp 20 S; Pulse Ox 99% on R/A; al4 02:00 BP 110 / 59; Pulse 82; Resp 18 S; Pulse Ox 100% on R/A; al4 02:30 BP 108 / 50; Pulse 79; Resp 18; Pulse Ox 100% on R/A; al4 03:00 BP 109 / 50; Pulse 79; Resp 18; Pulse Ox 100% on R/A; al4 04:00 BP 115 / 45; Pulse 88; Resp 16; Pulse Ox 100% ; Pain 0/10; al4 05:00 BP 113 / 65; Pulse 89; Resp 22; Pulse Ox 100% on R/A; al4 06:00 BP 101 / 51; Pulse 95; Resp 24; Pulse Ox 100% ; Pain 0/10; al4 04/20 22:38 Body Mass Index 31.93 (95.25 kg, 172.72 cm) al4 Procedures: 00:19 Peripheral line: by aseptic technique a peripheral line was placed in the right rn antecubital vein, Placed by Dr. Madden using ultrasound guidance. MDM: 04/20 22:30 Patient medically screened. rn 22:45 ED course: Pt states took 2 nitro prior to arrival, may explain hypotension, currently rn denies sob or chest pain. . 23:11 ED course: Will give small boluses at a time given clinically seems for volume rn overloaded and CHF, took nitro, and afebrile. Also has been on levaquin since discharge. Will not give sepsis bolus at this time, rather with reevaluate with each smaller bolus.. 23:47 ED course: Lab reports no hemolysis, now renal function shows acute kidney failure with rn hyperkalemia. No gross ECG changes at this time.. 04/21 00:20 Differential diagnosis: CHF exacerbation, pneumonia, Pneumothorax pulmonary edema, registry rn renal failure, volume overload. Data reviewed: vital signs, nurses notes, lab test result(s), EKG, radiologic studies, plain films, and as a result, I will admit patient. Counseling: I had a detailed discussion with the patient and/or guardian regarding: the historical points, exam findings, and any diagnostic results supporting the discharge/admit diagnosis, lab results, radiology results, the need for further work-up and treatment in the hospital. Response to treatment: the patient's symptoms have mildly improved after treatment, and as a result, I will admit patient. Admission orders: after a detailed discussion of the patient's condition and case, the admit orders are written by me. ED course: BP improved, will admit for acute renal failure and hyperkalemia. . 04/20 22:36 Order name: BMP; Complete Time: 00:44 rn 04/20 22:36 Order name: Blood Culture Adult (2) rn 04/20 22:36 Order name: CBC with Diff; Complete Time: 23:24 rn 04/20 22:36 Order name: Hepatic Function; Complete Time: 00:44 rn 04/20 22:36 Order name: Lipase; Complete Time: 00:44 rn 04/20 22:36 Order name: Magnesium; Complete Time: 00:44 rn 04/20 22:36 Order name: NT PRO-BNP; Complete Time: 00:44 rn 04/20 22:36 Order name: PT-INR; Complete Time: 23:24 rn 04/20 22:36 Order name: Ptt, Activated; Complete Time: 23:24 rn 04/20 22:36 Order name: Troponin High Sensitivity; Complete Time: 00:44 rn 04/20 22:37 Order name: COVID-19/FLU A+B (Document "Date of Onset" if Symptomatic); Complete Time: rn 00:44 04/20 22:45 Order name: Lactate; Complete Time: 00:58 rn 04/20 22:45 Order name: Procalcitonin; Complete Time: 00:58 rn 04/20 23:13 Order name: Urine Culture rn 04/20 23:13 Order name: Urine Microscopic Only rn 04/20 23:25 Order name: Potassium; Complete Time: 00:17 rn 04/21 00:59 Order name: Wound Culture la1 04/21 01:46 Order name: Glucose, Ancillary Testing; Complete Time: 19:45 EDMS 04/21 01:52 Order name: Urine Dipstick-Ancillary; Complete Time: 19:45 EDMS 04/21 03:46 Order name: CBC with Automated Diff; Complete Time: 19:45 EDMS 04/21 04:16 Order name: Ur Protein; Complete Time: 19:45 EDMS 04/21 04:20 Order name: Comprehensive Metabolic Panel; Complete Time: 19:45 EDMS 04/21 04:20 Order name: Uric Acid; Complete Time: 19:45 EDMS 04/21 04:20 Order name: Creatine Phosphokinase; Complete Time: 19:45 EDMS 04/21 04:20 Order name: Troponin High Sensitivity; Complete Time: 19:45 EDMS 04/21 04:20 Order name: Lipid Profile; Complete Time: 19:45 EDMS 04/21 04:20 Order name: T4 Free; Complete Time: 19:45 EDMS 04/21 04:20 Order name: Magnesium; Complete Time: 19:45 EDMS 04/21 04:20 Order name: Thyroid Stimulating Hormone; Complete Time: 19:45 EDMS 04/21 04:20 Order name: Lactate Sepsis 2 HR Follow-up; Complete Time: 19:45 EDMS 04/20 22:36 Order name: XRAY CXR (1 view); Complete Time: 19:45 rn 04/20 22:36 Order name: EKG; Complete Time: 22:37 rn 04/20 22:36 Order name: Cardiac monitoring; Complete Time: 22:56 rn 04/20 22:36 Order name: EKG - Nurse/Tech; Complete Time: 22:56 rn 04/20 22:36 Order name: IV Saline Lock; Complete Time: :56 rn 04/20 22:36 Order name: Labs collected and sent; Complete Time: 22:56 rn 04/20 22:36 Order name: O2 Per Protocol; Complete Time: 22:56 rn 04/20 22:36 Order name: O2 Sat Monitoring; Complete Time: 22:56 rn 04/20 23:13 Order name: Urine Dipstick-Ancillary (obtain specimen); Complete Time: 01:54 rn 04/21 01:20 Order name: Parisi; Complete Time: 01:47 rn 04/21 04:21 Order name: Urinalysis; Complete Time: 19:45 EDMS 04/21 04:43 Order name: Urine Microscopic Only; Complete Time: 19:45 EDMS 04/21 07:50 Order name: US; Complete Time: 19:45 EDMS 04/21 07:55 Order name: Glucose, Ancillary Testing; Complete Time: 19:45 EDMS Administered Medications: 04/20 23:05 Drug: NS 0.9% 250 ml Route: IV; Rate: bolus; Site: right antecubital; al4 23:30 Follow up: Response: No adverse reaction; IV Status: Completed infusion al4 04/21 00:31 Drug: Calcium Gluconate 1 grams Route: IVPB; Infused Over: 60 mins; Site: right al4 antecubital; 01:40 Follow up: Response: No adverse reaction; IV Status: Completed infusion al4 00:32 Drug: Insulin Regular Human 5 units {Co-Signature: st1 (Elif Arellano RN).} Route: al4 IVP; Site: right antecubital; 01:30 Follow up: Response: No adverse reaction al4 00:32 Not Given (Physician Discretion): D50W 25 ml IVP once; (0.5 amp) al4 00:33 Drug: NS 0.9% 250 ml Route: IV; Rate: bolus; Site: right antecubital; al4 01:00 Follow up: Response: No adverse reaction; IV Status: Completed infusion al4 00:33 Drug: Sodium Bicarbonate 1 amp Route: IVP; Site: right antecubital; al4 01:30 Follow up: Response: No adverse reaction al4 00:33 Drug: Kayexalate (polystyrene) 30 grams Route: PO; al4 01:30 Follow up: Response: No adverse reaction al4 01:15 Not Given (Physician Discretion): Ancef (cefazolin) 1 grams IVPB once al4 01:30 Drug: Lasix (furosemide) 40 mg Route: IVP; Site: right antecubital; al4 02:30 Follow up: Response: No adverse reaction al4 01:30 Drug: Ancef (cefazolin) 1 grams Route: IVPB; Site: right antecubital; al4 02:00 Follow up: Response: No adverse reaction; IV Status: Completed infusion al4 01:47 Drug: Lovenox (enoxaparin) 1 mg/kg Route: Sub-Q; Site: left lower abdomen; al4 02:30 Follow up: Response: No adverse reaction al4 Disposition: 00:20 Critical Care:. rn Disposition Summary: 04/21/21 00:22 Hospitalization Ordered Hospitalization Status: Inpatient Admission rn Provider: Prince Coco rn Condition: Stable rn Problem: new rn Symptoms: have improved rn Bed/Room Type: Standard rn Location: Intensive Care Unit(04/21/21 09:51) bd Room Assignment: 1-(04/21/21 09:51) bd Diagnosis - Acute kidney failure, unspecified rn - Dyspnea, unspecified rn - Hyperkalemia rn - Diabetes mellitus due to underlying condition with foot ulcer rn Forms: - Medication Reconciliation Form rn - SBAR form program manager rn time excluding procedures: 00:20 Critical care time: Bedside Care: 30 minutes, Consultation: 5 minutes, Family rn Intervention: 5 minutes. Total time: 40 minutes Signatures: Dispatcher [employer] Hilaria Godinez Martha RN RN Asif Oleary MD MD rn Attema, Lee, SENIOR PRODUCT DEVELOPMENT MANAGER-C MYLES-Esdras Winn al4 Elif Arellano RN st1 Corrections: (The following items were deleted from the chart) 01:04/20 22:50 Constitutional: This is a well developed, well nourished patient who is rn awake, alert, and in no acute distress. Head/Face: Normocephalic, atraumatic. Eyes: Periorbital areas with no swelling, redness, or edema. Cardiovascular: Irregular rhythm, regular rate Respiratory: + mild tachypnea, no retractions Abdomen/GI: soft, non-tender Skin: Warm, dry MS/ Extremity: + some cyanosis to right foot (known PAD s/p vascular procedure recently). Neuro: Awake and alert, GCS 15 rn 04/21 02:17 00:22 Telemetry/MedSurg (Inpatient) rn mw 02:17 00:22 rn mw 09:51 02:17 [facility] ER HOLD mw bd 09: 02:17 ERHOLD- mw bd
--- NOTE | 2021-04-21 01:08 | P.HP ---
Certification for Inpatient Patient admitted to: Inpatient With expected LOS: >2 Midnights Patient will require the following post-hospital care: None Practitioner: I am a practitioner with admitting privileges, knowledge of patient current condition, hospital course, and medical plan of care. Services: Services provided to patient in accordance with Admission requirements found in Title 42 Section 412.3 of the Code of Federal Regulations Patient History Date of Service: 04/21/21 Reason for admission: Acute renal failure, hyperkalemia History of Present Illness: 75-year-old male with history of CHF, CAD status post CABG with pacemaker/defibrillator, hypertension, hyperlipidemia, PVD, diabetic foot wound, diabetes type 2insulin-dependent presents emergency department for malaise, general weakness and shortness of breath. Patient reports that he had an angiogram with some procedure of the right lower extremity about 1 week ago has not been feeling well ever since. Patient is also been on antibiotics for the wound to the dorsum of his right foot. Patient was evaluated here in the emergency department he was initially hypotensive upon arrival to the ER although he had just taken 2 nitroglycerin for chest pain. His labs are significant for white blood cell count 12.1 hemoglobin 9 sodium 130 potassium 7 chloride 96 CO2 20 BUN 60 creatinine 2.53 GFR 25 glucose 250 lactic acid 4.7 AST 305 ALT 187 BNP 26,622 troponin 3373.1 procalcitonin 0.19 urinalysis pending Covid negative chest x-ray no acute changes. Patient with 3+ pitting edema bilateral lower extremities and is in acute renal failure. I discussed the case with nephrology who recommends Lasix drip at 10 mg/h in addition to other diagnostics which have been ordered. Patient also received Lovenox and Ancef in the emergency department. Will admit to the ICU for further evaluation and management. Patient did have repeat potassium in the ER which returned value of 6.3. Patient did receive potassium cocktail. Allergies boceprevir [From Victrelis] Allergy (Verified 04/11/16 08:55) Hives/Rash liraglutide [From Victoza] Allergy (Verified 04/11/16 04:16) Itching/Hives/Rash Home Medications: Aspirin [Aspirin EC 81 MG] 81 mg PO DAILY 04/11/16 Atorvastatin Calcium 40 mg PO DAILY 03/28/21 Clopidogrel Bisulfate [Clopidogrel] 75 mg PO DAILY 03/28/21 Ferrous Sulfate 325 mg PO DAILY 03/28/21 Insulin Aspart [Novolog Flexpen] 100 units SQ PRN 03/28/21 Insulin Degludec [Tresiba] 40 units SQ DAILY 03/28/21 Isosorbide Dinitrate 30 mg PO DAILY 03/28/21 Metformin HCl 850 mg PO BID 03/28/21 Montelukast [Singulair*] 10 mg PO DAILY 03/28/21 Ranolazine [Ranolazine ER] 500 mg PO BID 03/28/21 Valsartan 320 mg PO DAILY 03/28/21 hydroCHLOROthiazide [Hydrochlorothiazide] 25 mg PO DAILY 03/28/21 icosapent ethyL [Vascepa 1 gm Cap] 1 gm PO BID 03/28/21 Collagenase [Santyl Ointment*] 1 appl TOP DAILY #1 tube 04/02/21 Metoprolol Succinate [Toprol Xl*] 50 mg PO DAILY #30 tab 04/02/21 levoFLOXacin [Levaquin*] 750 mg PO DAILY #4 tab 04/02/21 - Past Medical/Surgical History Diabetic: Yes -: CHF -: Diabetes type 2insulin-dependent -: Hypertension -: Hyperlipidemia -: PVD -: cabg -: bilateral cataract sx -: left hip sx x3 -: Multiple vascular surgeries right lower extremity Psychosocial/ Personal History: Patient lives at home with his . - Family History Father -: Heart disease, Diabetes Mother -: Heart disease, Diabetes - Social History Smoking Status: Never smoker Alcohol use: Yes CD- Drugs: No Caffeine use: No Place of Residence: Home Review of Systems 10-point ROS is otherwise unremarkable Respiratory: Cough, Shortness of Breath, SOB with Excertion Cardiovascular: Chest Pain, Orthopnea, Edema Physical Examination - Physical Exam General: Alert, In no apparent distress, Oriented x3 HEENT: Atraumatic, PERRLA, Mucous membr. moist/pink, EOMI, Sclerae nonicteric Neck: Supple, 2+ carotid pulse no bruit, No LAD, Without JVD or thyroid abnormality Respiratory: Crackles/rales Cardiovascular: Regular rate/rhythm, Normal S1 S2, Edema (3+ pitting edema bilateral lower extremities) Capillary refill: <2 Seconds Gastrointestinal: Normal bowel sounds, No tenderness Musculoskeletal: No tenderness Integumentary: No rashes, Diabetic ulcer (Dorsum of right foot) Neurological: Normal speech, Normal strength at 5/5 x4 extr, Normal tone, Normal affect - Studies Laboratory Data (last 24 hrs) 04/20/21 23:50: Potassium 6.3 H* 04/20/21 22:50: PT 13.8 H, INR 1.20, APTT 28.4 04/20/21 22:50: WBC 12.10 H, Hgb 9.0 L, Hct 28.1 L, Plt Count 486 H 04/20/21 22:50: Sodium 130 L, Potassium 7.0 H*, BUN 60 H, Creatinine 2.53 H, Glucose 250 H, Magnesium 2.7 H, Total Bilirubin 0.8, AST 305 H*, ALT 187 H, Alkaline Phosphatase 136 H, Lipase 188 Assessment and Plan - Plan Assessment: Acute renal failure with hyperkalemia Acute on chronic systolic congestive heart failure with elevated troponin Diabetes mellitus type 2insulin-dependent Ulceration dorsum of right foot PAD CAD status post CABG with pacemaker/defibrillator Hypertension Hyperlipidemia Abnormal LFTs Plan: Acute renal failure with hyperkalemia: Case was discussed with nephrology recommendation was for Lasix drip 10 mg/h in addition to other diagnostics which I have ordered. Cardiology also to be consulted given volume overload and history of CHF. Blood pressure has improved to 109/57 at this time. Possibly related to multiple recent angiograms, vascular procedures in addition to Metformin, valsartan, antibiotics. Appreciate further input from nephrology. Acute on chronic systolic congestive heart failure with elevated troponin: Continue as above, Lovenox 1 mg/kg subcu daily, cardiology consulted continue with Lasix drip. Most recent echocardiogram done approximately 2 weeks ago demonstrates EF of between 40 and 45%. Obtain and continue medications, 1500 cc/day fluid restriction. Daily weights. Diabetes mellitus type 2insulin-dependent: ACH S Accu-Chek, sliding scale insulin. Patient takes Tresiba 40 units daily, will provide with Lantus 20 units daily at this time and increase as needed. Ulceration dorsum of right foot: General surgery consulted, wound healing consulted, patient on Ancef. Blood and wound cultures obtained. PAD: Patient following with vascular on outpatient basis. CAD status post CABG with pacemaker/defibrillator: Monitor on telemetry, continue home medications. Patient had heart catheterization approximately 6 to 7 months ago. Hypertension: Obtain and continue home medications Hyperlipidemia:Obtain and continue home medications Abnormal LFTs: Patient had negative ultrasound of his liver during previous admission about 2 weeks ago. Possibly related to heart failure. Trend. DVT PPX: Lovenox 1 mg/kg daily Code status: Full Discharge Plan: Home Plan to discharge in: Greater than 2 days - Advance Directives Does patient have a Living Will: No Does patient have a Durable POA for Healthcare: No - Code Status/Comfort Care Code Status Assessed: Yes (Full) Critical Care: No Time Spent Managing Pts Care (In Minutes): 55
[2021-04-21] MEDS ORDERED: FUROSEMIDE 40 MG/4 ML VIAL ONE (01:11)
[2021-04-21] MEDS ORDERED: CEFAZOLIN SODIUM 1 GM/VIAL ONE (01:12)
[2021-04-21] MEDS ORDERED: ENOXAPARIN 100 MG/ML SYR SQ ONE (01:13)
[2021-04-21] MEDS ORDERED: ONDANSETRON 4 MG/2 ML VIAL IV PRN (01:37)
[2021-04-21] MEDS ORDERED: FUROSEMIDE 100 MG in NA CHLORIDE 0.9% 90 ML IV SCH ×3 (01:37→15:00)
[2021-04-21 01:52] LABS: Urine Blood Negative (Negative); Urine Glucose Negative (Negative); Urine Protein Trace (Negative); Urine Specific Gravity >=1.030 (1.005-1.030); Urine pH 5.5 (5.0-7.0)
[2021-04-21] MEDS ORDERED: FUROSEMIDE 100 MG/10 ML VIAL IV ONE (02:06)
[2021-04-21 02:37] VITALS: BMI 31.9
[2021-04-21 03:09] VITALS: O2SAT 100
[2021-04-21 03:39] LABS: Absolute Lymphocytes (CBC) 2.1 K/uL (0.7-4.9); Hematocrit 26.6 % (39.6-49.0); Lymphocytes % 14.6 % (15.3-44.8); MPV 8.2 fL (7.6-11.3); RBC Red Blood Cell Count 3.07 M/uL (4.33-5.43)
[2021-04-21 04:15] LABS: Albumin 2.6 g/dL (3.4-5.0); Bilirubin Total 0.8 mg/dL (0.2-1.0); Protein, Total 7.1 g/dL (6.4-8.2); Thyroid Stimulating Hormone 0.668 uIU/mL (0.360-3.740)
[2021-04-21 04:16] LABS: UR PROTEIN 29.6 mg/dL (<11.9); Urine Protein/Creatinine Ratio 0.18 ratio (<0.15)
[2021-04-21 04:17] LABS: Urine Appearance CLOUDY (Clear); Urine Bilirubin NEGATIVE (Negative); Urine Blood NEGATIVE (Negative); Urine Color YELLOW (Yellow); Urine Glucose NEGATIVE (Negative); Urine Protein NEGATIVE (Negative); Urine pH 5.5 (5.0-7.0)
[2021-04-21 04:19] LABS: Magnesium 2.8 mg/dL (1.8-2.4); Troponin High Sensitivity 2813.3 pg/mL (<58.9)
[2021-04-21 04:21] LABS: Urine Microscopic Reflex ORDER UMIC
[2021-04-21 04:43] LABS: Urine Bacteria <20 /HPF (NONE SEEN); Urine RBC <5 /HPF (NONE SEEN); Urine Urothelial Cells <5 /HPF (NONE SEEN)
[2021-04-21] MEDS ORDERED: INSULIN -REGULAR HUMAN 50 UNIT/0.5 ML ML SQ SCH (07:30)
--- NOTE | 2021-04-21 07:49 | RAD REPORT ---
EXAM DESCRIPTION: US - Renal Ultrasound-Complete - 04/21/2021 2:12 am CLINICAL HISTORY: arf COMPARISON: RP EXAM COMPLETE dated 01/17/2012 FINDINGS: Both kidneys are normal in size, shape and echotexture. The right kidney measures 11.7 cm. Echogenic foci in the right kidney The left kidney measures 10.5 cm. Left renal cyst measuring 16 millimeters. The urinary bladder is incompletely distended without gross abnormality seen. IMPRESSION: No evidence of hydronephrosis. Left renal cyst. Probable nonobstructing right renal calculi .
[2021-04-21 08:33] VITALS: TEMP 97.6
[2021-04-21] MEDS ORDERED: INSULIN GLARGINE 100 UNIT/ML SQ SCH (09:00)
--- NOTE | 2021-04-21 09:10 | EKG ---
Test Date: 2021-04-20 Test Time: 22:37:25 Silk Soaker: ELISEO MEASUREMENT RESULTS: Intervals: Rate: 94 TX: 184 QRSD: 154 QT: 422 QTc: 527 Odon: P: 27 TX: 184 QRS: -28 T: 157 INTERPRETIVE STATEMENTS: Sinus rhythm with frequent premature ventricular complexes Left bundle branch block Abnormal ECG Compared to ECG 03/29/2021 16:19:17 Ventricular premature complex(es) now present Sinus tachycardia no longer present Electronically Signed On 04-21-21 09:08:57 WRESTLING COACH by Triston Cordova
[2021-04-21] MEDS ORDERED: D50W 25 GM/50 ML SYRINGE IV PRN (10:55)
[2021-04-21] MEDS ORDERED: GLUCAGON 1 MG/VIAL IM PRN (10:55)
[2021-04-21] MEDS ORDERED: HEPARIN 500 UNIT/5 ML SYR IV ONE (11:02)
[2021-04-21] MEDS ORDERED: D50W 25 GM/50 ML SYRINGE IV ONE ×2 (11:20→11:43)
[2021-04-21] MEDS ORDERED: RSI MEDICATION KIT IV ONE (11:22)
[2021-04-21] MEDS ORDERED: INSULIN -REGULAR HUMAN 50 UNIT/0.5 ML ML IV ONE (11:30)
[2021-04-21] MEDS ORDERED: Caclcium Chloride 10% INJ SYR IV ONE (11:43)
[2021-04-21] MEDS ORDERED: EPINEPHrine 1 MG/10 ML SYR IV ONE (11:43)
[2021-04-21] MEDS ORDERED: AMIODARONE HCL 150 MG/3 ML INJ IV ONE (11:43)
--- NOTE | 2021-04-21 11:55 | P.OP ---
Preoperative diagnosis: Acute Renal Failure Postoperative diagnosis: Acute Renal Failure Primary procedure: Placement of Temporary LEFT femoral Hemodialysis Catheter Secondary procedure: Ultrasound guidance Anesthesia: Local 1% lidocaine Estimated blood loss: <5cc Specimen: none Findings: non-pulsatile blood returned Complications: None Implants: Non-tunnelled hemodialysis catheter Transferred to: ICU Condition: Serious
[2021-04-21] MEDS ORDERED: VANCOMYCIN 1 GM in NA CHLORIDE 0.9% 250 ML IVPB ONE (12:00)
[2021-04-21] MEDS ORDERED: Levofloxacin 250mg IV 250 MG/50 ML BAG IV SCH (12:00)
[2021-04-21] MEDS ORDERED: VANCOMYCIN 1 GM in NA CHLORIDE 0.9% 250 ML IVPB SCH (12:00)
--- NOTE | 2021-04-21 12:09 | P.DS ---
Admission Date: 04/21/21 Discharge Date: 04/21/21 Discharge Condition: Reason for Admission: Acute renal failure, hyperkalemia Hospital Course: Patient is a 75-year-old male with history of CHF, CAD status post CABG with pacemaker/defibrillator, hypertension, hyperlipidemia, PVD, diabetic foot wound, diabetes type 2insulin-dependent. He presented to the ER with shortness of breath and was found to have acute renal failure with cardiorenal syndrome. Patient reportedly has had angiogram 1 week prior to admission. His potassium was 7 on admission. He received kayexalate, 2 g of calcium gluconate. He was placed on lasix infusion as well. He had approximately 400 cc of urine. His repeat potassium has decreased to 6.0. Shortly after having a temporary dialysis access, patient became suddenly hypotensive. A code blue was called. He unfortunately after roughly 45 min of CPR. Patient also had a wound on the dorsum of his R foot, which appeared infected. He was initially on ancef before we tried to broaden his antibiotic to vancomycin and levofloxacin. Vital Signs/Physical Exam: Temp Pulse Resp BP Pulse Ox 97.6 F 86 18 111/58 L 99 04/21/21 08:00 04/21/21 07:00 04/21/21 09:00 04/21/21 07:00 04/21/21 07:00 Laboratory Data at Discharge: WBC 14.30 K/uL (4.3-10.9) H D 04/21/21 03:15 Hgb 8.7 g/dL (13.6-17.9) L 04/21/21 03:15 Hct 26.6 % (39.6-49.0) L 04/21/21 03:15 Plt Count 430 K/uL (152-406) H 04/21/21 03:15 PT 13.8 SECONDS (9.5-12.5) H 04/20/21 22:50 INR 1.20 04/20/21 22:50 APTT 28.4 SECONDS (24.3-36.9) 04/20/21 22:50 Sodium 132 mmol/L (136-145) L 04/21/21 03:15 Potassium 6.0 mmol/L (3.5-5.1) H* 04/21/21 03:15 BUN 59 mg/dL (7-18) H 04/21/21 03:15 Creatinine 2.48 mg/dL (0.55-1.3) H 04/21/21 03:15 Glucose 151 mg/dL (74-106) H 04/21/21 03:15 Uric Acid 12.0 mg/dL (3.5-7.2) H 04/21/21 03:15 Magnesium 2.8 mg/dL (1.8-2.4) H 04/21/21 03:15 Total Bilirubin 0.8 mg/dL (0.2-1.0) 04/21/21 03:15 AST 331 U/L (15-37) H* 04/21/21 03:15 ALT 207 U/L (12-78) H 04/21/21 03:15 Alkaline Phosphatase 134 U/L (45-117) H 04/21/21 03:15 Triglycerides 79 mg/dL (<150) 04/21/21 03:15 Cholesterol 90 mg/dL (<200) 04/21/21 03:15 HDL Cholesterol 33 mg/dL (40-60) L 04/21/21 03:15 Cholesterol/HDL Ratio 2.73 04/21/21 03:15 Lipase 188 U/L (73-393) 04/20/21 22:50 Home Medications: Aspirin [Aspirin EC 81 MG] 81 mg PO DAILY 04/11/16 Atorvastatin Calcium 40 mg PO DAILY 03/28/21 Clopidogrel Bisulfate [Clopidogrel] 75 mg PO DAILY 03/28/21 Ferrous Sulfate 325 mg PO DAILY 03/28/21 Insulin Aspart [Novolog Flexpen] 100 units SQ PRN 03/28/21 Insulin Degludec [Tresiba] 40 units SQ DAILY 03/28/21 Isosorbide Dinitrate 30 mg PO DAILY 03/28/21 Metformin HCl 850 mg PO BID 03/28/21 Montelukast [Singulair*] 10 mg PO DAILY 03/28/21 Ranolazine [Ranolazine ER] 500 mg PO BID 03/28/21 Valsartan 320 mg PO DAILY 03/28/21 hydroCHLOROthiazide [Hydrochlorothiazide] 25 mg PO DAILY 03/28/21 icosapent ethyL [Vascepa 1 gm Cap] 1 gm PO BID 03/28/21 Collagenase [Santyl Ointment*] 1 appl TOP DAILY #1 tube 04/02/21 Metoprolol Succinate [Toprol Xl*] 50 mg PO DAILY #30 tab 04/02/21 levoFLOXacin [Levaquin*] 750 mg PO DAILY #4 tab 04/02/21 Followup: Unknown,U [Primary Care Provider] -
[2021-04-21] MEDS ORDERED: CEFEPIME 1 GM in NA CHLORIDE 0.9% 100 ML IV SCH (13:00)
--- NOTE | 2021-04-21 13:17 | CON ---
Date of Consultation: 04/21/2021 Reason For Consultation: Elevated BUN and creatinine, fluid management, hyperkalemia. History Of Present Illness: This is a 75-year-old gentleman with significant past medical history of diabetes complicated with neuropathy, retinopathy, hypertension, CAD, status post non-ST elevation M I status post CABG and ICD placement, complicated with congestive heart failure, ejection fraction la st month of 45%, hyperlipidemia, chronic foot infection, the patient was in his regular state of , recently admitted to the hospital for CHF exacerbation, treated and recovered. The patient came to the hospital complaining from shortness of breath, orthopnea, increasing leg swelling, found to thurman ve elevation in BUN and creatinine, creatinine 2.5 with GFR of 25 with significant hyperkalemia. Pot assium up to the 7. Over the night, we started the patient on aggressive diuresis, on Lasix drip. T he patient has been oliguric. Repeated potassium is still elevated up to 6 and the patient still has difficulty breathing. The patient denied taking any nonsteroidal. The patient has been handled wit h his foot with recurrent debridement, recently has angioplasty. The patient denied any fever, any c hills. Past Medical History: Includes; 1.Hypertension. 2.Hyperlipidemia. 3.Diabetes complicated with neuropathy and retinopathy. 4.CAD complicated with congestive heart failure, ejection fraction of 45%, status post non-ST elevat ion IL and ICD, status post CABG. Allergies: TO BOCEPREVIR AND LIRAGLUTIDE. Past Surgical History: Includes; 1.Debridement of foot. 2.CABG. 3.ICD placement. 4.Angioplasty. Family History: Positive for diabetes and hypertension. Social History: Occasional alcohol. Lives with family. Denied drugs abuse. Physical Examination: Vital Signs: When I saw the patient; blood pressure 88/50, pulse of 86, afebrile. Chest: Crackles bilateral. Heart: S1, S2. Systolic murmur. Abdomen: Soft, nontender. Extremity: +1 edema more prominent on the right side. Dressing on the right foot with cyanosis with ulcer and gangrene. Neurologic: Alert. No focality. No tremor. Laboratory Data: Chest x-ray, cardiomegaly with congestion. Sodium 132, potassium 6, bicarb 22, BUN 59, creatinine 2.4, GFR 25, uric acid of 12, calcium 8.7, magnesium 2.8. Troponin 2800. Albumin 2. 6, corrected calcium is 9.8. TSH 0.6. Urinalysis; specific gravity more than 1.030. Renal ultrasou nd; 11.7/10.5, no hydronephrosis. Reviewing the lab data for the patient back on April 02; enoch miles 1, GFR of 67. Current Medications: The patient on; 1.Lasix drip at 10 mg. 2.Ceftriaxone. 3.Zofran. Assessment And Plan: 1.Acute kidney injury secondary to multifactorial. Contrast-induced nephropathy secondary to cardio renal, oliguric, complicated with hyperkalemia and over volume. I had long discussion with the patie nt in the presence of the son by bedside side that need to initiate renal replacement therapy. The p atient and son on the agreement. We are going to go ahead and consult Surgery for catheter placement and we will take the patient for urgent dialysis. We will dialyze on a daily dialysis for the next 3 days and we will follow up. 2.Hypertension, currently hypotension secondary to shock. I am going to go ahead and discontinue al l blood pressure, especially with the presence of acute kidney injury discontinue valsartan, Ranexa, and hydrochlorothiazide and metformin, and we will monitor. 3.Hyperkalemia secondary to renal failure superimposed with valsartan. I am going to discontinue va lsartan. We will medicate the patient again today and we will initiate dialysis. The patient is goi ng to be dialyzed on low-potassium bath. 4.Septic shock/cardiogenic shock. We will repeat cardiac enzyme. We will start the patient on Levo phed. I am going to medicate the patient with ricci-cover including ceftriaxone and vancomycin. We wi ll switch ceftriaxone to quinolone for better penetration on the lung and the joint and we will follo w up. We will consult ID, consult Surgery. 5.Diabetes as by primary. 6.Congestive heart failure with exacerbation. Follow up serial cardiac enzyme. We will do dialysis today. The patient failed on Lasix drip. We will discontinue Lasix drip and start on Levophed and we will follow up. We will try to establish better volume control with dialysis. Time spent examining the patient [id number], discussing the case with the patient and the son by rio pruitt, discussing the case with the steam locomotive firer/fireman including nursing in the ICU and in the ER, discussin g the case with other subspecialty including ID, Surgery and hospitalist 65 minutes. BETTINA Voice ID: [id number] Report ID: [id number]
[2021-04-21 14:01] VITALS: BP 60/43
--- NOTE | 2021-04-21 14:05 | RAD REPORT ---
EXAM DESCRIPTION: RAD - Chest Single View - 04/20/2021 10:48 pm CLINICAL HISTORY: 75 years, Male, Dyspnea;Cough COMPARISON: None. FINDINGS: Single view of the chest was obtained portable. No prior films are available for compariso n. The lung volume is decreased. The heart is enlarged. Sternotomy wires and pericardiac clips corres pond to previous CABG. There is a dual-lead pacemaker defibrillator in place. The pulmonary vasculatu re is normal in distribution. Mild elevation right hemidiaphragm. No significant pleural effusions an d/or focal areas of consolidation. The rest of the soft tissue and bony structures demonstrate to b e unremarkable. IMPRESSION: Cardiomegaly. Status post CABG and dual lead pacemaker defibrillator in place Electronically signed by: Jesus Tenorio MD 04/20/2021 11:37 PM WOOD ROUTER Due to temporary technical issues with the PACS/Fluency reporting system, reports are being signed by the in house radiologists without review as a courtesy to insure prompt reporting. The interpreting radiologist is fully responsible for the content of the report.
--- NOTE | 2021-04-21 17:53 | CON ---
Date of Consultation: 04/21/2021 Brief Hpi: The patient is a 75-year-old male with history of CHF, CAD status post CABG, pac emaker defibrillator; hypertension; hyperlipidemia; peripheral vascular disease; peripheral arterial disease; diabetic foot wound with gangrene; type 2 diabetes; who presented to the emergency room on 0 04/21/2021 with general malaise, weakness, and shortness of breath. He had significant shortness of b reath. He had been treated with antibiotics for a wound of the right foot and had a revascularizatio n about a week ago of the area, but has not been feeling well since. Just prior to arrival, he had b een hypotensive and has just taken 2 nitroglycerin for chest pain. I am consulted emergently from th e ER for placement of a temporary hemodialysis catheter as the patient is currently hypotensive sever angela and in acute renal failure. Therefore, I am being consulted for placement of a temporary hemodia lysis catheter and to evaluate his right foot. Past Medical History: As above, CHF, diabetes, hypertension, hyperlipidemia, peripheral vascular dis ease. Past Surgical History: Includes CABG, bilateral cataract surgery, hip surgery, multiple vascular eloy geries of right lower extremity. Allergies: TO VICTRELIS AND VICTOZA. Home Medications: Include aspirin, atorvastatin, Plavix, ferrous sulfate, insulin, isosorbide dinitr ate, metformin, Singulair, ranolazine, valsartan, hydrochlorothiazide, Vascepa, Santyl, metoprolol, L evaquin. Social History: He denies smoking, drank alcohol before. Denies recreational drug use. Review of Systems: 10-point review of systems; he admits to cough, exertional shortness of breath, chest pain, orthopnea , edema, fatigue, malaise. Physical Examination: Vital Signs: At time of my examination, his heart rate was 88. His blood pressure was 80/58. General: He is awake, lethargic, but conversive and oriented x3. HEENT: He is otherwise atraumatic. His mucous membranes were somewhat dry. His sclerae were noninj ected and nonicteric. Neck: Supple without JVD. Chest: There is an AICD scar. Abdomen: Soft, nontender. Extremities: He had 3+ pitting edema. Significant edema in bilateral lower extremities. Focused ex amination of the right lower extremity shows a dorsal foot wound with gangrenous changes. It is has wet gangrene evident on this area and there is surrounding cellulitis. Laboratory Data: He had a laboratory exam, which reveals a white blood cell count of 14.3, hemoglobi n is 8.7, hematocrit 26.6, platelet count was 430. Sodium 132, potassium 6.0, chloride 101, carbon d ioxide 22, BUN 59, creatinine 2.4. His glucose was 151. Lactic acid was 4.8. His AST 331, ALT 207, alkaline phosphatase is 134. His troponin was 3373. A second count was pending. His proBNP was 26 ,622. His procalcitonin 0.19, lipase is 188. His UA was essentially negative. He had imaging perfo rmed, which included a chest x-ray performed on 04/20/2021, officially read. He had a chest x-ray on 04/20/2021, which is not available at this time due to a computer dysfunction. Assessment And Plan: This is a 75-year-old male who comes in with signs of septic shock. 1.IV fluid hydration. 2.Sepsis treatment protocol with antibiotic coverage. 3.I have explained the risks, benefits, and alternatives of placement of a temporary femoral hemodia lysis catheter including but not limited to bleeding, infection, damage to surrounding tissues, need for further operations or procedures. 4.We will get an x-ray of his foot to evaluate for possible osteomyelitis. I recommend surgical dennise ridement when he is medically stabilized. 5.Continue Santyl and Dakin's solution along with antibiotics for his infection of his right lower e xtremity. 6.I have explained, risks, benefits, and alternatives to the patient and his son at the bedside. Th ey agreed to proceed as indicated. TK/MODL Voice ID: [id number] Report ID: [id number]
[2021-04-21] MEDS ORDERED: ENOXAPARIN 100 MG/ML SYR SQ SCH (21:00)
--- NOTE | 2021-04-21 23:38 | OP ---
Date of Procedure: 04/21/2021 Surgeon: Delvis Alberts MD, Preoperative Diagnosis: Acute renal failure. Postoperative Diagnosis: Acute renal failure. Procedure: Placement of a temporary left femoral hemodialysis catheter using ultrasound guidance. Anesthesia: Local 1% lidocaine utilized. Estimated Blood Loss: 5 mL. Specimen: None. Findings: Dark nonpulsatile blood return. Complications: None. Implants: Non tunneled hemodialysis catheter in the left femoral vein. Condition: The patient remained in ICU in serious/critical condition. Procedure In Detail: After informed was obtained from the patient and his son at the bedside, the pa tient was prepped and draped in the usual sterile fashion. The skin over the left femoral vein was a nesthetized with 1% lidocaine without epinephrine. Ultrasound guidance was used to help cannulate th e femoral vein using a micro introducer sheath. On the first attempt without incident or complicatio n, dark red nonpulsatile blood was returned. I advanced the micro wire in at this point, and the nee dle was removed. I then performed a heike incision overlying the insertion site and placed a 5-Burmese microintroducer sheath over the micro wire and the micro wire was removed. At this point, I then pl aced a standard wire into the microintroducer sheath after removing the inner cannula and removed the microintroducer sheath. Sequential dilatation was performed using Seldinger technique over the han dard wire and then the catheter was advanced without any complication. At this point, the dark red n on-pulsatile blood was returned from both ports. I flushed them until clear with saline with approxi mately 10 cc of saline and put caps on these. I then secured to the skin with the attach to a nylon suture and a sterile dressing placed over top. The patient tolerated the procedure well with no evid ence of complication, remained in the ICU in serious condition throughout the procedure. All counts were correct at the end of the case. TK/MODL Voice ID: [id number] Report ID: [id number]
--- NOTE | 2021-04-25 16:45 | CON ---
Date of Consultation: 04/21/2021 Reason For Consultation: Acute renal failure, hyperkalemia with a history of congestive heart failur e. History Of Present Illness: Mr. Pringle is 75 who has had a history of CABG before. Has hypertensio n, dyslipidemia, diabetes, peripheral arterial disease, and congestive heart failure. His congestive heart failure is chronic, systolic. Ejection fraction was 45% on March 30, 2021. He came in with hyperkalemia, renal failure, liver failure, elevated white count, anemia, and elevated procalcitonin , possibly consistent with sepsis. His main complaint was weakness and shortness of breath. He is a llergic to liraglutide and a medicine called boceprevir. Review of Systems: Negative. Social History: Negative. Family History: Noncontributory. Medications: At home include aspirin, Lipitor, Plavix, insulin, iron, Imdur, metformin, Ranexa, meto prolol, Vascepa, valsartan, and hydrochlorothiazide. Physical Examination: General: He appeared to be mildly short of breath, very fatigued and weak. He was in sinus rhythm. He was afebrile. HEENT: Negative. Neck: Supple without any bruit, lymphadenopathy, but he had some JVD. Chest: Reveals crackles at both bases with some expiratory wheezing. Cardiac exam: Revealed sinus rhythm with S3 gallops. No murmurs or rubs. Abdomen: Obese but benign. Extremities: Revealed 1 to 2+ edema to the knee. Diagnostic Data: Showed a creatinine of 2.48, white count of 14,000, hemoglobin of 8.7. Procalciton in was 0.19. Potassium was 6.0. AST, ALT, and alkaline phosphatase were elevated. BNP was 26,000. Troponin is 2813. Impression And Plan: 1.Acute on chronic systolic congestive heart failure exacerbation. I believe the troponin is elevat ed secondary to the congestive heart failure and elevated creatinine. 2.Acute renal failure. 3.Elevated white count and procalcitonin consistent with sepsis. 4.Anemia. 5.Hyperkalemia. 6.Elevated liver function tests. 7.History of peripheral arterial disease. 8.Diabetes. 9.Hypertension. 10.Dyslipidemia. 11.History of coronary artery bypass graft. The patient has certain appropriate therapy for his pro blem. However, with his renal failure, we need to stop the valsartan and hydrochlorothiazide and met formin. Continue his other regimen. No need to repeat another echocardiogram since he just had 1 re cently. Nephrology is following. I think he should be on some antibiotics as well. I will continue to follow him along with Dr. Sepulveda, Nephrology. LASHON/BARBARA Voice ID: [id number] Report ID: [id number]
== END 2021-04-21 11:44 | disposition expired | DRG 871 ==
LOC: ER 22:21 → ERHOLD 04-21 00:36 → 3RD-ICU 04-21 09:55
PROVIDERS: ADMIT Internal Medicine; ATTEND Internal Medicine
PROC: 06HY33Z Insertion of Infusion Device into Lower Vein, Percutaneous Approach (ICD-10-PCS; principal; 2021-04-21)
PROC: 5A12012 Performance of Cardiac Output, Single, Manual (ICD-10-PCS; 2021-04-21)
DX: A41.9 Sepsis, unspecified organism (principal); I50.23 Acute on chronic systolic (congestive) heart failure; R65.21 Severe sepsis with septic shock; N17.9 Acute kidney failure, unspecified; E13.52 Other specified diabetes mellitus with diabetic peripheral angiopathy with gangrene; I96 Gangrene, not elsewhere classified; M86.8X7 Other osteomyelitis, ankle and foot; E87.5 Hyperkalemia; I11.0 Hypertensive heart disease with heart failure; I49.01 Ventricular fibrillation; I46.2 Cardiac arrest due to underlying cardiac condition; E13.65 Other specified diabetes mellitus with hyperglycemia; E13.69 Other specified diabetes mellitus with other specified complication; R77.8 Other specified abnormalities of plasma proteins; I73.9 Peripheral vascular disease, unspecified; N14.1 Nephropathy induced by other drugs, medicaments and biological substances; I25.10 Atherosclerotic heart disease of native coronary artery without angina pectoris; E78.5 Hyperlipidemia, unspecified; R94.5 Abnormal results of liver function studies; E11.621 Type 2 diabetes mellitus with foot ulcer; L97.519 Non-pressure chronic ulcer of other part of right foot with unspecified severity; I95.9 Hypotension, unspecified; Z95.1 Presence of aortocoronary bypass graft; Z95.810 Presence of automatic (implantable) cardiac defibrillator; Z20.822 Contact with and (suspected) exposure to COVID-19
CPT/HCPCS: 0240U; 36415; 51702; 71045; 76770; 80048; 80053; 80061; 80076; 81003; 81015; 82550; 82570; 82947; 83605; 83690; 83735; 83880; 84132; 84145; 84156; 84439; 84443; 84484; 84550; 85025; 85610; 85730; 87040; 87070; 87077; 87086; 87088; 87186; 87205; 93005; 96365; 96367; 96368; 96372; 96375; 99285; J0171; J0282; J0610; J0690; J1642; J1650; J1940; J7050